=== PATIENT | male | born 1935 | race Caucasian/White ===

== ENCOUNTER 2019-07-15 13:14 | Inpatient (IN) | payer MEDICARE, OTHER ==
--- NOTE | 2019-07-15 15:27 | ER Document Report ---
ED General - General Chief Complaint: Post Surgical Pain Stated Complaint: POST OP ISSUE Time Seen by Provider: 07/15/19 14:36 Primary Care Provider: ELOISA MARTINES MD [Primary Care Provider] - Follow up as needed TRAVEL OUTSIDE OF THE [place] IN LAST 30 DAYS: No - HPI Notes: Mr. Gomez is an 84-year-old male who underwent lumbar fusion surgery performed by Dr. Keane at [facility] last week but now presents complaining with inability to ambulate and his who accompanies him is requesting that we "get him into a rehab center". states that the patient was discharged from hospital without any home health services initially. She says that she is unable to get him out of bed and reports that he is fallen to the floor at least once with no significant injury no loss of consciousness. Home health came out to evaluate the patient earlier today and I did not feel that she was able to manage his situation at home I recommended that they bring him by EMS to the hospital for evaluation for admission with subsequent placement in a rehabilitation center. 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 HENT: Negative for sore throat. Eyes: Negative for visual changes. Cardiovascular: Negative for chest pain. Respiratory: Negative for shortness of breath. Gastrointestinal: Negative for abdominal pain, vomiting or diarrhea. Genitourinary: Negative for dysuria. Musculoskeletal: As per HPI. Skin: Negative for rash. Neurological: Negative for focal weakness or numbness. 10 point ROS negative except as marked above and in HPI. Physical Exam - Vital signs Vitals: Temp Pulse Resp BP Pulse Ox 97.4 F 69 18 154/81 H 100 07/15/19 13:36 07/15/19 13:36 07/15/19 13:36 07/15/19 13:36 07/15/19 13:36 Notes: GENERAL: Well-developed well-nourished appearing in no acute distress. SKIN: Good turgor no rashes. HEAD: Normocephalic atraumatic. EYES: PERRLA. Conjunctivae and sclerae clear. EARS: CANALS AND TMS CLEAR. NOSE: CLEAR. MOUTH: Moist mucosa. Good dentition. No stridor or edema. No drooling. 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 NECK: Supple. No masses or thyromegaly. No adenopathy. Carotids 2+ without bruits. No JVD. BACK: Symmetrical with healing lumbar scar present midline. Wound is clean and there is no drainage or warmth. He is mildly tenderness area. CHEST: Respirations unlabored. Breath sounds clear and symmetrical. Pacemaker left anterior chest wall. HEART: Regular rhythm. No murmur gallop or rub. ABDOMEN: Soft nontender without masses, organomegaly or rebound. Bowel sounds normally active. No bruits. GENITALIA: Deferred. EXTREMITIES: No edema. No calf tenderness. Cap refill less than 1.5 seconds. Dorsalis pedis and posterior tibial pulses 3+ and symmetrical. NEUROLOGICAL: GCS 15. Alert and oriented x3. Patient is unable to get up in bed and unable to stand. Fluent speech. Cranial nerves II through XII intact. Sensorimotor and cerebellar normal. Normal tone. Course - Re-evaluation Re-evalutation: 07/15/19 15:34 I spoke with discharge planning team and they are going to investigate the situation in greater depth and determine what alternatives are available at this time for disposition. 07/15/19 17:53 Serum creatinine is elevated and we do not have a baseline for comparison so we may be dealing with an acute kidney injury. Social workers been involved and says that consults for home health, OT PT can all be obtained as of 8:00 in the morning. Findings were discussed with the on-call hospitalist Dr. Linares and he has indicated that we will do an observation status admission with Dr. Romero. - Vital Signs Vital signs: Temp Pulse Resp BP Pulse Ox 97.4 F 69 12 123/105 H 100 07/15/19 13:36 07/15/19 13:36 07/15/19 16:29 07/15/19 16:29 07/15/19 16:29 - Laboratory Result Diagrams: 07/15/19 16:29 07/15/19 16:29 Laboratory results interpreted by me: 07/15/19 07/15/19 07/15/19 16:06 16:29 16:29 RBC 3.22 L Hgb 11.2 L Hct 33.0 L MCV 102 H MCH 34.9 H RDW 14.3 H Plt Count 120 L BUN 38 H Creatinine 2.47 H Est GFR ( Amer) 30 L Est GFR (MDRD) Non-Af 25 L Calcium 11.6 H Total Protein 6.1 L Albumin 3.3 L Urine Ketones TRACE H Discharge - Discharge Clinical Impression: Acute kidney injury, Degenerative disc disease, lumbar Condition: Fair Disposition: ADMITTED OBSERVATION Admitting Provider: Heather (Hospitalist) Referrals: ELOISA MARTINES MD [Primary Care Provider] - Follow up as needed
[2019-07-15 16:28] LABS: APPEARANCE,URINE CLEAR; BILIRUBIN,URINE NEGATIVE (NEGATIVE); COLOR,URINE YELLOW; GLUCOSE, URINE NEGATIVE (NEGATIVE); KETONES,URINE TRACE mg/dL (NEGATIVE); LEUKOCYTE ESTERASE,URINE NEGATIVE (NEGATIVE); NITRITE,URINE NEGATIVE (NEGATIVE); PROTEIN,URINE NEGATIVE (NEGATIVE); URINE SPECIFIC GRAVITY 1.012; UROBILINOGEN,URINE NEGATIVE mg/dL (<2.0)
[2019-07-15 16:36] LABS: ABSOLUTE BASOPHILS # (AUTO) 0.1 10^3/uL (0.0-0.2); ABSOLUTE EOSINOPHILS # (AUTO) 0.1 10^3/uL (0.0-0.6); ABSOLUTE LYMPHOCYTES (AUTO) 1.5 10^3/uL (0.5-4.7); ABSOLUTE MONOCYTES (AUTO) 0.6 10^3/uL (0.1-1.4); ABSOLUTE NEUT (AUTO) 6.1 10^3/uL (1.7-8.2); EOSINOPHILS % (AUTO) 0.7 % (0-6); HEMOGLOBIN 11.2 g/dL (13.5-17.0); LYMPHOCYTES % (AUTO) 17.8 % (13-45); MEAN CORPUSCULAR HEMOGLOBIN 34.9 pg (27.0-33.4); MEAN CORPUSCULAR HGB CONC 34.1 g/dL (32.0-36.0); MEAN CORPUSCULAR VOLUME 102 fl (80-97); MONOCYTES % (AUTO) 7.1 % (3-13); PLATELET COUNT 120 10^3/uL (150-450); RED BLOOD COUNT 3.22 10^6/uL (4.35-5.55); RED CELL DISTRIBUTION WIDTH 14.3 % (11.5-14.0); SEGMENTED NEUTROPHILS % (AUTO) 73.4 % (42-78); TOTAL CELLS COUNTED % (AUTO) 100 %; WHITE BLOOD COUNT 8.3 10^3/uL (4.0-10.5)
[2019-07-15 16:55] LABS: ALBUMIN 3.3 g/dL (3.5-5.0); ALKALINE PHOSPHATASE 74 U/L (38-126); ANION GAP 12 (5-19); ASPARTATE AMINO TRANSFERASE 34 U/L (17-59); BILIRUBIN,DIRECT 0.4 mg/dL (0.0-0.4); BILIRUBIN,TOTAL 1.1 mg/dL (0.2-1.3); BLOOD UREA NITROGEN 38 mg/dL (7-20); CALCIUM 11.6 mg/dL (8.4-10.2); CARBON DIOXIDE 25 mmol/L (22-30); CHLORIDE 101 mmol/L (98-107); GLUCOSE 77 mg/dL (75-110); POTASSIUM 4.2 mmol/L (3.6-5.0); TOTAL PROTEIN 6.1 g/dL (6.3-8.2)
[2019-07-15] MEDS ORDERED: OXYCODONE-ACETAMINOPHEN 5-325 MG TABLET PO ONE (17:29)
[2019-07-15] MEDS ORDERED: MAGNESIUM HYDROXIDE SUSP 30 ML UDCUP PO PRN (18:24)
[2019-07-15] MEDS ORDERED: MAG HYDROX/AL HYDROX/SIMETH SUSP 30 ML UDCUP PO PRN (18:24)
[2019-07-15] MEDS ORDERED: NORMAL SALINE 1000 ML 1,000 ML IV ONE (18:32)
[2019-07-15] MEDS ORDERED: NORMAL SALINE 1000 ML 500 ML IV ONE (18:33)
[2019-07-15] MEDS ORDERED: NITROGLYCERIN 0.4 MG/TAB 25 TAB/BOTTLE SL PRN (18:38)
--- NOTE | 2019-07-15 18:57 | PDOC H&P ---
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 Patient patient has a chronic back pain from lumbar spinal disease and had recent surgery done on Tuesday last week. Surgery was performed that [facility] by Dr. Krishnan. He was discharged the subsequent day with Percocet. Patient only took 1 dose of the Percocet and used Tylenol to control the rest of the pain. He he then began to have significant mobility dysfunction mainly because of the pain. Denies any incontinence, saddle anesthesia or new weakness in the legs. Patient was seen by home nurse today who recommended rehabilitation and patient's subsequently called EMS patient to be brought to the ER. Note patient does not know if he has any significant kidney disease but admits to not having drunk enough fluids over the past few days. Past Medical History Cardiac Medical History: Reports: Myocardial Infarction - didn't know it, Hypertension Pulmonary Medical History: Denies: Asthma, Chronic Obstructive Pulmonary Disease (COPD), Sleep Apnea EENT Medical History: Reports: Throat - Throat cancer [unspecified] Neurological Medical History: Denies: Seizures Renal/ Medical History: Reports: Other - Prostate cancer status post radiation Malignancy Medical History: Reports: Other - Larynx GI Medical History: Denies: Hepatitis, Hiatal Hernia Hematology: Denies: Anemia, Sickle Cell Disease Past Surgical History Past Surgical History: Reports: Coronary Stent, Pacemaker - medtronic, Other - Resection of throat cancer Social History Lives with: Family Smoking Status: Former Smoker Family History Family History: Reviewed & Not Pertinent Parental Family History Reviewed: Yes Children Family History Reviewed: NA Sibling(s) Family History Reviewed.: NA Medication/Allergy Home Medications: Acetaminophen/Diphenhydramine [[facility] Pain Relief Pm Caplet] 1 tab-cap PO HSP PRN 12/20/14 Allopurinol [Zyloprim 300 mg Tablet] 300 mg PO DAILY 12/20/14 Amitriptyline HCl [Elavil 25 mg Tablet] 25 mg PO QHS 12/20/14 Apixaban [Eliquis 2.5 mg Tablet] 2.5 mg PO BID 12/20/14 Aspirin [Ecotrin] 81 mg PO DAILY PRN 12/20/14 Colchicine [Colcrys] 1.2 mg PO DAILY 12/20/14 Methotrexate Sodium [Methotrexate] 5 mg PO .Q1 WEEK 12/20/14 Metoprolol Succinate 50 mg PO DAILY 12/20/14 Nifedipine [Nifedipine ER] 60 mg PO DAILY 12/20/14 Omeprazole 40 mg PO BID 12/20/14 Oxycodone HCl/Acetaminophen [Oxycodon-Acetaminophen 7.5-325] 1 each PO BID 12/20/14 Simvastatin 40 mg PO DAILY 12/20/14 Vits A,C,E/Lutein/Zeax/Zn/Hector [[facility] Formula Softgel] 1 each PO DAILY 12/20/14 Besifloxacin HCl [Besivance Drops] 1 drop OP TID 01/21/15 Difluprednate [Durezol] 5 ml OP ASDIR PRN 01/21/15 Nepafenac [Ilevro] 1.7 ml OP ASDIR PRN 01/21/15 Allergies/Adverse Reactions: No Known Allergies Allergy (Unverified 12/20/14 10:45) Review of Systems Constitutional: ABSENT: anorexia, chills, fever(s) Ears: ABSENT: hearing changes Cardiovascular: ABSENT: chest pain, dyspnea on exertion, orthropnea Respiratory: ABSENT: dyspnea Gastrointestinal: ABSENT: abdominal pain, diarrhea Genitourinary: PRESENT: other - Denies incontinence. ABSENT: hematuria Musculoskeletal: PRESENT: muscle weakness Neurological: ABSENT: focal weakness, syncope Psychiatric: ABSENT: hallucinations Endocrine: ABSENT: heat intolerance Allergic/Immunologic: ABSENT: seasonal rhinorrhea Physical Exam Vital Signs: Temp Pulse Resp BP Pulse Ox 97.4 F 69 12 123/105 H 100 07/15/19 13:36 07/15/19 13:36 07/15/19 16:29 07/15/19 16:29 07/15/19 16:29 Intake & Output 07/14/19 07/15/19 07/16/19 06:59 06:59 06:59 Weight 88 kg General appearance: PRESENT: no acute distress, cooperative Head exam: PRESENT: normocephalic Eye exam: PRESENT: EOMI Mouth exam: PRESENT: neck supple Neck exam: ABSENT: JVD Respiratory exam: PRESENT: clear to auscultation katharina Cardiovascular exam: PRESENT: RRR, +S1, +S2. ABSENT: bradycardia GI/Abdominal exam: PRESENT: normal bowel sounds, soft. ABSENT: rigid, tenderness Extremities exam: ABSENT: calf tenderness, joint swelling Musculoskeletal exam: PRESENT: other - Range of motion of legs admitted because of back pain. Incision scar looks fresh ports is healing well without any purulence drainage or fluctuance. ABSENT: ambulatory Neurological exam: PRESENT: alert, awake, oriented to person, oriented to place, oriented to time, oriented to situation Psychiatric exam: ABSENT: anxious Results Laboratory Results: 07/15/19 16:29 07/15/19 16:29 07/15/19 07/15/19 07/15/19 16:06 16:29 16:29 WBC 8.3 RBC 3.22 L Hgb 11.2 L Hct 33.0 L MCV 102 H MCH 34.9 H MCHC 34.1 RDW 14.3 H Plt Count 120 L Seg Neutrophils % 73.4 Sodium 138.0 Potassium 4.2 Chloride 101 Carbon Dioxide 25 Anion Gap 12 BUN 38 H Creatinine 2.47 H Est GFR ( Amer) 30 L Glucose 77 Calcium 11.6 H Total Bilirubin 1.1 AST 34 Alkaline Phosphatase 74 Total Protein 6.1 L Albumin 3.3 L Urine Color YELLOW Urine Appearance CLEAR Urine pH 8.0 Ur Specific [place] 1.012 Urine Protein NEGATIVE Urine Glucose (UA) NEGATIVE Urine Ketones TRACE H Urine Blood NEGATIVE Urine Nitrite NEGATIVE Ur Leukocyte Esterase NEGATIVE Urine WBC (Auto) 0 Urine RBC (Auto) 0 Assessment and Plan - Diagnosis (1) Acute on chronic kidney failure Is this a current diagnosis for this admission?: Yes Plan: Unknown baseline as patient has no records here since 2013 I will give IV fluid hydration and recheck BMP for response of creatinine We will attempt to get records tomorrow regarding patient's baseline creatinine level (2) Ambulatory dysfunction Is this a current diagnosis for this admission?: Yes Plan: secondary to lumbar spinal disorder and recent surgery. Ambulation is limited by pain from this. Physical therapy Social work for placement. Anticipate patients will require rehabilitation inpatient. (3) Lumbar back pain with radiculopathy affecting lower extremity Is this a current diagnosis for this admission?: Yes Plan: See plan below (4) Status post lumbar surgery Is this a current diagnosis for this admission?: Yes Plan: Percocet as needed Bowel regimen - Time Time Spent with patient: 35 or more minutes Medications reviewed and adjusted accordingly: Yes
[2019-07-15] MEDS: SIMVASTATIN 40 MG TABLET PO SCH (22:35)
[2019-07-15] MEDS: HYDROCHLOROTHIAZIDE 12.5 MG TABLET PO SCH (22:36)
[2019-07-15] MEDS: AMIODARONE HCL 200 MG TABLET PO SCH (22:36)
--- NOTE | 2019-07-15 23:23 | EKG REPORT ---
SEVERITY:- ABNORMAL ECG - VENTRICULAR-PACED COMPLEXES NONSPECIFIC INTRAVENTRICULAR CONDUCTION DELAY : Confirmed by: Shani Hardin 15-Jul-2019 23:23:12
[2019-07-16] MEDS: NORMAL SALINE 1000 ML 1,000 ML IV PRN ×2 (00:28→09:41)
[2019-07-16 05:05] LABS: ANION GAP 8 (5-19); BLOOD UREA NITROGEN 33 mg/dL (7-20); CALCIUM 10.7 mg/dL (8.4-10.2); CARBON DIOXIDE 26 mmol/L (22-30); CHLORIDE 107 mmol/L (98-107); GLUCOSE 85 mg/dL (75-110)
[2019-07-16] MEDS: HEPARIN SOD (PORCINE) 5,000 UNIT/ML 1 ML VIAL SUBCUT SCH ×3 (05:08→21:49)
[2019-07-16] MEDS: PANTOPRAZOLE SODIUM 40 MG TABLET.DR PO SCH (05:18)
[2019-07-16 05:32] LABS: POTASSIUM 3.3 mmol/L (3.6-5.0)
[2019-07-16] MEDS: AMIODARONE HCL 200 MG TABLET PO SCH ×2 (09:41→21:55)
[2019-07-16] MEDS: METOPROLOL SUCCINATE 50 MG TAB.SR.24H PO SCH (09:41)
[2019-07-16] MEDS: SENNOSIDES/DOCUSATE 8.6-50 MG 1 EACH TABLET PO SCH ×2 (09:41→18:15)
[2019-07-16] MEDS: OXYCODONE-ACETAMINOPHEN 5-325 MG TABLET PO PRN (09:47)
[2019-07-16] MEDS ORDERED: DOCUSATE SODIUM 100 MG CAPSULE PO SCH (10:00)
--- NOTE | 2019-07-16 10:57 | PDOC PROGRESS REPORT ---
Subjective Progress Note for:: 07/16/19 Subjective:: Patient still complains of back pain medically difficult for him to ambulate. Pain is a little better resuming his pain medication. Reason For Visit: [place] Physical Exam Vital Signs: Temp Pulse Resp BP Pulse Ox 97.4 F 69 15 146/67 H 97 07/16/19 07:46 07/16/19 07:46 07/16/19 07:46 07/16/19 07:46 07/16/19 07:46 Intake & Output 07/15/19 07/16/19 07/17/19 06:59 06:59 06:59 Intake Total 1550 1000 Output Total 500 Balance 1050 1000 Weight 77.3 kg General appearance: PRESENT: no acute distress Eye exam: PRESENT: EOMI Neck exam: ABSENT: JVD Respiratory exam: PRESENT: clear to auscultation katharina, symmetrical, unlabored. ABSENT: tachypnea, wheezes Cardiovascular exam: PRESENT: RRR, +S1, +S2. ABSENT: tachycardia GI/Abdominal exam: PRESENT: normal bowel sounds, soft. ABSENT: rebound, rigid, tenderness Extremities exam: ABSENT: calf tenderness, pedal edema Musculoskeletal exam: PRESENT: other - Incision site and lower back midline looks fresh port starting to heal without any fluctuance, induration or drainage. cone tender with some erythema.. ABSENT: ambulatory Neurological exam: PRESENT: alert, awake, oriented to person, oriented to place, oriented to time, oriented to situation Results Laboratory Results: 07/15/19 16:29 07/16/19 03:40 07/15/19 07/15/19 07/15/19 16:06 16:29 16:29 WBC 8.3 RBC 3.22 L Hgb 11.2 L Hct 33.0 L MCV 102 H MCH 34.9 H MCHC 34.1 RDW 14.3 H Plt Count 120 L Seg Neutrophils % 73.4 Sodium 138.0 Potassium 4.2 Chloride 101 Carbon Dioxide 25 Anion Gap 12 BUN 38 H Creatinine 2.47 H Est GFR ( Amer) 30 L Glucose 77 Calcium 11.6 H Total Bilirubin 1.1 AST 34 Alkaline Phosphatase 74 Total Protein 6.1 L Albumin 3.3 L Urine Color YELLOW Urine Appearance CLEAR Urine pH 8.0 Ur Specific [place] 1.012 Urine Protein NEGATIVE Urine Glucose (UA) NEGATIVE Urine Ketones TRACE H Urine Blood NEGATIVE Urine Nitrite NEGATIVE Ur Leukocyte Esterase NEGATIVE Urine WBC (Auto) 0 Urine RBC (Auto) 0 07/16/19 03:40 WBC RBC Hgb Hct MCV MCH MCHC RDW Plt Count Seg Neutrophils % Sodium 140.9 Potassium 3.3 L Chloride 107 Carbon Dioxide 26 Anion Gap 8 BUN 33 H Creatinine 2.29 H Est GFR ( Amer) 33 L Glucose 85 Calcium 10.7 H Total Bilirubin AST Alkaline Phosphatase Total Protein Albumin Urine Color Urine Appearance Urine pH Ur Specific [place] Urine Protein Urine Glucose (UA) Urine Ketones Urine Blood Urine Nitrite Ur Leukocyte Esterase Urine WBC (Auto) Urine RBC (Auto) Assessment and Plan - Diagnosis (1) Acute on chronic kidney failure Is this a current diagnosis for this admission?: Yes (2) Ambulatory dysfunction Is this a current diagnosis for this admission?: Yes (3) Lumbar back pain with radiculopathy affecting lower extremity Is this a current diagnosis for this admission?: Yes (4) Status post lumbar surgery Is this a current diagnosis for this admission?: Yes - Plan Summary Summary: Of note, patient presented to the ER yesterday via ambulance because of compl aints of ambulatory dysfunction which had worsened since his lumbar surgery [unspecified] that was done last week Tuesday. Of note he was discharged the following day from [facility] and at that time, needed significant help getting into the car. At home has been difficult for to care for patient, also notes that he only took his prescribed Percocet once and since then she had been giving him Tylenol. Patient was then brought in to the ER after discussing with his PCP who said he would need rehab. In the ER, blood work revealed creatinine of 2.47. Last creatinine was several years ago showing 1.4. Admitted for potential [place] given we will not able to verify baseline creat inine level from PCPs office yesterday [Tuesday]. Given IV fluids with small improvement in creatinine. Today I was able to call patient's PCP office and found out that the patient's BMPs done this year including the last one, which was last month, have reviewed creatinine levels all around 2.7. This indicates that patient is even better than baseline currently has underlying stage 4 CKD. As such, only thing pending his physical therapy and recommendations for placement. - Time Time Spent with patient: 15-24 minutes
[2019-07-16] MEDS ORDERED: POTASSIUM CHLORIDE 10 MEQ CAPSULE.ER PO ONE (11:30)
[2019-07-16] MEDS: GABAPENTIN 100 MG CAPSULE PO SCH ×2 (14:31→21:55)
[2019-07-16] MEDS: HYDROCHLOROTHIAZIDE 12.5 MG TABLET PO SCH (21:55)
[2019-07-16] MEDS: SIMVASTATIN 40 MG TABLET PO SCH (21:55)
[2019-07-17] MEDS: HEPARIN SOD (PORCINE) 5,000 UNIT/ML 1 ML VIAL SUBCUT SCH ×3 (05:01→21:07)
[2019-07-17] MEDS: GABAPENTIN 100 MG CAPSULE PO SCH ×3 (05:02→21:07)
[2019-07-17] MEDS: PANTOPRAZOLE SODIUM 40 MG TABLET.DR PO SCH (05:02)
[2019-07-17] MEDS: SENNOSIDES/DOCUSATE 8.6-50 MG 1 EACH TABLET PO SCH ×2 (09:20→18:28)
[2019-07-17] MEDS: OXYCODONE-ACETAMINOPHEN 5-325 MG TABLET PO PRN (09:20)
[2019-07-17] MEDS: METOPROLOL SUCCINATE 50 MG TAB.SR.24H PO SCH (09:21)
[2019-07-17] MEDS: AMIODARONE HCL 200 MG TABLET PO SCH ×2 (09:21→21:07)
--- NOTE | 2019-07-17 10:23 | PDOC PROGRESS REPORT ---
Subjective Progress Note for:: 07/17/19 Subjective:: 07/17/2019-numbness in his feet inability to ambulate Reason For Visit: [place] Physical Exam Vital Signs: Temp Pulse Resp BP Pulse Ox 98.5 F 70 19 114/56 L 97 07/17/19 08:06 07/17/19 08:06 07/17/19 08:06 07/17/19 08:06 07/17/19 08:06 Intake & Output 07/16/19 07/17/19 07/18/19 06:59 06:59 06:59 Intake Total 1550 1564 Output Total 500 625 Balance 1050 939 Weight 77.3 kg 79.1 kg General appearance: PRESENT: no acute distress, well-developed, well-nourished Neck exam: ABSENT: carotid bruit, JVD, lymphadenopathy, thyromegaly Respiratory exam: PRESENT: clear to auscultation katharina, symmetrical, unlabored. ABSENT: rales, rhonchi, wheezes Cardiovascular exam: PRESENT: RRR. ABSENT: diastolic murmur, rubs, systolic murmur Pulses: PRESENT: +1 pedal pulses bilateral Vascular exam: PRESENT: pallor GI/Abdominal exam: PRESENT: normal bowel sounds, soft. ABSENT: distended, guarding, mass, organolmegaly, rebound, tenderness Extremities exam: PRESENT: +1 edema Neurological exam: PRESENT: alert, awake, oriented to person, oriented to place, oriented to time, oriented to situation, CN II-XII grossly intact. ABSENT: motor sensory deficit Psychiatric exam: PRESENT: appropriate affect, normal mood. ABSENT: homicidal ideation, suicidal ideation Skin exam: PRESENT: dry, intact, warm. ABSENT: cyanosis, rash Results Laboratory Results: 07/15/19 16:29 07/16/19 03:40 Assessment and Plan - Diagnosis (1) Acute on chronic kidney failure Is this a current diagnosis for this admission?: Yes Plan: Unknown baseline as patient has no records here since 2013 I will give IV fluid hydration and recheck BMP for response of creatinine We will attempt to get records tomorrow regarding patient's baseline creatinine level 07/17/2019-seem to be chronic in nature as patient creatinine slightly improved still 2.29. We will continue to follow daily renal panels. (2) Ambulatory dysfunction Is this a current diagnosis for this admission?: Yes Plan: secondary to lumbar spinal disorder and recent surgery. Ambulation is limited by pain from this. Physical therapy Social work for placement. Anticipate patients will require rehabilitation inpatient. 07/17/2019-still unable to ambulate. Continue OT PT. Await further recommendations (3) Lumbar back pain with radiculopathy affecting lower extremity Is this a current diagnosis for this admission?: Yes Plan: See plan below 07/17/2019-see below (4) Status post lumbar surgery Is this a current diagnosis for this admission?: Yes Plan: Percocet as needed Bowel regimen 07/17/2019-continue Percocet as needed. Continue bowel regimen - Plan Summary Summary: Of note, patient presented to the ER yesterday via ambulance because of complaints of ambulatory dysfunction which had worsened since his lumbar surgery [unspecified] that was done last week Tuesday. Of note he was discharged the following day from [facility] and at that time, needed significant help getting into the car. At home has been difficult for to care for patient, also notes that he only took his prescribed Percocet once and since then she had been giving him Tylenol. Patient was then brought in to the ER after discussing with his PCP who said he would need rehab. In the ER, blood work revealed creatinine of 2.47. Last creatinine was several years ago showing 1.4. Admitted for potential [place] given we will not able to verify baseline creatinine level from PCPs office yesterday [Tuesday]. Given IV fluids with small improvement in creatinine. Today I was able to call patient's PCP office and found out that the patient's BMPs done this year including the last one, which was last month, have reviewed creatinine levels all around 2.7. This indicates that patient is even better than baseline currently has underlying stage 4 CKD. As such, only thing pending his physical therapy and recommendations for placement. - Time Time Spent with patient: 15-24 minutes
[2019-07-17] MEDS ORDERED: POTASSIUM CHLORIDE 10 MEQ CAPSULE.ER PO ONE (11:00)
--- NOTE | 2019-07-17 13:56 | RADIOLOGY REPORT (SQ) ---
EXAM DESCRIPTION: CT CHEST WITHOUT COMPLETED DATE/TIME: 07/17/2019 12:50 pm REASON FOR STUDY: elevated calcium bone pain R05 COUGH COMPARISON: CTA of the chest from 02/21/2011 TECHNIQUE: CT scan performed of the chest without intravenous contrast. Images reviewed with lung, soft tissue and bone windows. Reconstructed coronal and sagittal MPR images reviewed. All images st ored on PACS. All CT scanners at this facility use dose modulation, iterative reconstruction, and/or weight based d osing when appropriate to reduce radiation dose to as low as reasonably achievable (ALARA). [facility]: Dose Right [facility]: CareDose [facility]: Dose Right [facility]: Teradose 4D [facility]: Smart Technologies RADIATION DOSE: CT Rad equipment meets quality standard of care and radiation dose reduction techniq ues were employed. CTDIvol: 11.3 mGy. DLP: 440 mGy-cm. mGy. LIMITATIONS: No technical limitations. FINDINGS: LUNGS AND PLEURA: The trachea and main bronchi are patent. There is bronchial wall thicke anuj and severe centrilobular and paraseptal emphysema. The areas of subpleural reticulation and con solidation in the dependent portion of the lower lobes are nonspecific and could represent atelectasi s or part of a 2nd chronic interstitial process such is fibrotic NSIP. There is a trace amount of fr ee fluid in the right pleural space. There is no pleural thickening or calcification. HILAR AND MEDIASTINAL STRUCTURES: No enlarged mediastinal or hilar adenopathy. HEART AND VASCULAR STRUCTURES: Cardiomegaly and severe atherosclerotic calcification of the coronary arteries. There is no pericardial effusion UPPER ABDOMEN: The nodular contour of the liver is suggestive of cirrhosis. The subcentimeter hypode nse lesions in the left hepatic lobe (image 47 of series 2) and in the posterior inferior aspect of t he right hepatic lobe (image 56 of series 2 are too small to characterize ; the left hepatic lobe les ions are stable from 02/21/2011. The punctate splenic and hepatic calcifications are consistent with granulomas. There is no acute gross abnormality of the pancreas. The high attenuation within the ga llbladder lumen could represent sludge or cholelithiasis. There is no discrete adrenal mass. The ki dneys are atrophic. There is an ahaustral appearance of the transverse colon without associated maicol colonic stranding. THYROID AND OTHER SOFT TISSUES: The thyroid gland is heterogeneous. There is a discrete subcentimete r hypodense nodule in the right lobe of the thyroid gland (image 4 of series 2). There is no enlarge d supraclavicular or axillary adenopathy. BONES: Osteopenia. There is no fracture or osseous lesion. HARDWARE: Left subclavian approach triple lead ICD. OTHER: No other findings. IMPRESSION: 1. Severe paraseptal and centrilobular emphysema. As stated above, the areas of subpleu ral reticulation and consolidation in the dependent portion of the lower lobes are nonspecific and co uld represent atelectasis or part of a 2nd chronic interstitial process such is fibrotic NSIP. 2. Nodular contour of the liver suggestive of cirrhosis. 3. Ahaustral appearance of the transverse colon without associated pericolonic stranding. Correlate with clinical findings to exclude a colitis. 4. Other findings as detailed above. TECHNICAL DOCUMENTATION: JOB ID: [id number] Quality ID # [id number]: Final reports with documentation of one or more dose reduction techniques (e.g., Au tomated exposure control, adjustment of the mA and/or kV according to patient size, use of iterative reconstruction technique) 2010 [employer]- All Rights Reserved Reading location - IP/workstation name: [email or web address]
--- NOTE | 2019-07-17 14:14 | PDOC CONSULTATION ---
Consultation-Blank Consultation: Physical Medicine & Rehabilitation Progress Note Consultation request received and appreciated. Chart reviewed and case discussed with acute-care therapists as well as equipment planner. 84-year-old male admitted to [facility] on 07/15/2019 following recent discharge home from [facility] status post lumbar spine surgery on 07/11/[address] Krishnan. He presented with significant mobility and self-care dysfunction as well as uncontrolled pain. Further hospital course also included diagnosis of chronic kidney disease stage IV with baseline creatinine of 2.7. He was evaluated by acute care physical therapy and occupational therapy, and he currently requires moderate to maximum assistance for bed mobility and transfers, supervision for sitting balance, and minimum assistance for standing balance. The patient lives with his in a 1 level home with 3 steps to enter, and his is unable to care for the patient in his current functional condition. Based on the patient's diagnosis, medical co-morbidities, and current functional status, he is a good candidate for acute inpatient rehabilitation as he would benefit from 3 hours per day of intensive therapies in at least 2 disciplines under the close medical supervision of a physician. The patient is expected to make significant gains in a relatively short period of time to the point that he can safely be discharged home with supervision and assistance from family. Barring any unforeseen events or conversations, there is a plan to admit the patient to acute inpatient rehabilitation at [facility] on 07/18/2019. telephone supervisor time is scheduled for 10 AM, and nursing should call report to [facility] acute inpatient rehabilitation nurses station at [phone] prior to the patients discharge.
[2019-07-17] MEDS: HYDROCHLOROTHIAZIDE 12.5 MG TABLET PO SCH (21:07)
[2019-07-17] MEDS: SIMVASTATIN 40 MG TABLET PO SCH (21:07)
[2019-07-18] MEDS: GABAPENTIN 100 MG CAPSULE PO SCH (05:15)
[2019-07-18] MEDS: PANTOPRAZOLE SODIUM 40 MG TABLET.DR PO SCH (05:15)
[2019-07-18] MEDS: HEPARIN SOD (PORCINE) 5,000 UNIT/ML 1 ML VIAL SUBCUT SCH (07:39)
--- NOTE | 2019-07-18 07:58 | PDOC DISCHARGE SUMMARY ---
Impression - Admit/DC Date/PCP Admission Date/Primary Care Provider: 07/15/19 18:34 ELOISA MARTINES MD Discharge Date: 07/18/19 - Discharge Diagnosis (1) Acute on chronic kidney failure Is this a current diagnosis for this admission?: Yes (2) Ambulatory dysfunction Is this a current diagnosis for this admission?: Yes (3) Lumbar back pain with radiculopathy affecting lower extremity Is this a current diagnosis for this admission?: Yes (4) Status post lumbar surgery Is this a current diagnosis for this admission?: Yes - Assessment Summary: Of note, patient presented to the ER yesterday via ambulance because of complaints of ambulatory dysfunction which had worsened since his lumbar surgery [unspecified] that was done last week Tuesday. Of note [facility] and at that time, needed significant help getting into the car. At home has been difficult for to care for patient, also notes that he only took his prescribed Percocet once and since then she had been giving him Tylenol. Patient was then brought in to the ER after discussing with his PCP who said he would need rehab. In the ER, blood work revealed creatinine of 2.47. Last creatinine was several years ago showing 1.4. Admitted for potential [place] given we will not able to verify baseline creatinine level from PCPs office yesterday [Tuesday]. Given IV fluids with small improvement in creatinine. Today I was able to call patient's PCP office and found out that the patient's BMPs done this year including the last one, which was last month, have reviewed creatinine levels all around 2.7. This indicates that patient is even better than baseline currently has underlying stage 4 CKD. As such, only thing pending his physical therapy and recommendations for placement. - Additional Information Resuscitation Status: Full Code Discharge Activity: Activity As Tolerated Referrals: ELOISA MARTINES MD [Primary Care Provider] - Follow up as needed Prescriptions: Oxycodone HCl/Acetaminophen [Percocet 5-325 mg Tablet] 2 tab PO Q6HP PRN #10 tablet PRN Reason: Home Medications: Amiodarone HCl [Amiodarone HCl 400 mg Tablet] 200 mg PO DAILY 07/16/19 Gabapentin [Neurontin 100 mg Capsule] 100 mg PO Q8 07/16/19 Hydrochlorothiazide [Hydrodiuril 25 mg Tablet] 25 mg PO DAILY 07/16/19 Metoprolol Succinate [Toprol Xl 50 mg Tab.sr] 50 mg PO DAILY 07/16/19 Omeprazole 40 mg PO BIDACBS 07/16/19 Oxycodone HCl/Acetaminophen [Percocet 5-325 mg Tablet] 1 tab PO Q6HP PRN 07/16/19 Amiodarone HCl [Cordarone 200 mg Tablet] 400 mg PO Q12 tablet 07/18/19 Hydrochlorothiazide [Hydrodiuril 12.5 mg Tablet] 12.5 mg PO QHS tablet 07/18/19 Metoprolol Succinate [Toprol Xl 50 mg Tab.sr] 50 mg PO DAILY tab.sr.24h 07/18/19 Nitroglycerin [Nitrostat 0.4 mg (1/150 Gr) Tabs 25/Bottle] 1 tab SL Q5MP PRN bottle 07/18/19 Oxycodone HCl/Acetaminophen [Percocet 5-325 mg Tablet] 2 tab PO Q6HP PRN #10 tablet 07/18/19 Simvastatin [Zocor 40 mg Tablet] 40 mg PO QHS tablet 07/18/19 History of Present Illiness History of Present Illness: QAMAR BOWEN is a 84 year old male who was brought to the ER with difficulty ambulating after a spinal surgery of unknown type. Hospital Course Hospital Course: Patient brought to the ER with history of lumbar spinal disease with status post lumbar spinal surgery unspecified, myocardial infarction, PCI with stenting and ICD, prostate cancer status post radiation, throat cancer status post resection with difficulty ambulating. Patient does have a history of chronic back pain from lumbar spinal disease and had recent surgery done last week. Surgery was performed at [facility] by Dr. Krishnan and he was discharged the next day with Percocet. Patient states he took 1 Percocet and switch to Tylenol for pain control. He began having difficulty with mobility after that point. He denied any incontinence or other complaints. Patient was placed on medical surgical floor and was seen by physical therapy. At this time patient will be discharged who [place] for short-term rehab. Patient family is in agreement with plan of care. Physical Exam Vital Signs: Temp Pulse Resp BP Pulse Ox 98.1 F 71 17 138/55 H 96 07/18/19 00:00 07/18/19 00:00 07/18/19 00:00 07/18/19 00:00 07/18/19 00:00 Intake & Output 07/17/19 07/18/19 07/19/19 06:59 06:59 06:59 Intake Total 1564 860 Output Total 625 300 Balance 939 560 Weight 79.1 kg General appearance: PRESENT: no acute distress, well-developed, well-nourished Neck exam: ABSENT: carotid bruit, JVD, lymphadenopathy, thyromegaly Respiratory exam: PRESENT: clear to auscultation katharina. ABSENT: rales, rhonchi, wheezes Cardiovascular exam: PRESENT: RRR. ABSENT: diastolic murmur, rubs, systolic murmur Pulses: PRESENT: +1 pedal pulses bilateral Vascular exam: PRESENT: normal capillary refill Extremities exam: PRESENT: full ROM, other - Lower externally weakness Neurological exam: PRESENT: alert, awake, oriented to person, oriented to place, oriented to time, oriented to situation, CN II-XII grossly intact. ABSENT: motor sensory deficit Psychiatric exam: PRESENT: appropriate affect, normal mood. ABSENT: homicidal ideation, suicidal ideation Skin exam: PRESENT: dry, intact, warm. ABSENT: cyanosis, rash Results Laboratory Results: WBC 8.3 10^3/uL (4.0-10.5) 07/15/19 16:29 RBC 3.22 10^6/uL (4.35-5.55) L 07/15/19 16:29 Hgb 11.2 g/dL (13.5-17.0) L 07/15/19 16:29 Hct 33.0 % (37.9-51.0) L 07/15/19 16:29 MCV 102 fl (80-97) H 07/15/19 16:29 MCH 34.9 pg (27.0-33.4) H 07/15/19 16:29 MCHC 34.1 g/dL (32.0-36.0) 07/15/19 16:29 RDW 14.3 % (11.5-14.0) H 07/15/19 16:29 Plt Count 120 10^3/uL (150-450) L 07/15/19 16:29 Lymph % (Auto) 17.8 % (13-45) 07/15/19 16:29 [place] % (Auto) 7.1 % (3-13) 07/15/19 16:29 Eos % (Auto) 0.7 % (0-6) 07/15/19 16:29 Baso % (Auto) 1.0 % (0-2) 07/15/19 16:29 Absolute Neuts (auto) 6.1 10^3/uL (1.7-8.2) 07/15/19 16:29 Absolute Lymphs (auto) 1.5 10^3/uL (0.5-4.7) 07/15/19 16:29 Absolute Monos (auto) 0.6 10^3/uL (0.1-1.4) 07/15/19 16:29 Absolute Eos (auto) 0.1 10^3/uL (0.0-0.6) 07/15/19 16:29 Absolute Basos (auto) 0.1 10^3/uL (0.0-0.2) 07/15/19 16:29 Seg Neutrophils % 73.4 % (42-78) 07/15/19 16:29 Sodium 140.9 mmol/L (137-145) 07/16/19 03:40 Potassium 3.3 mmol/L (3.6-5.0) L 07/16/19 03:40 Chloride 107 mmol/L (98-107) 07/16/19 03:40 Carbon Dioxide 26 mmol/L (22-30) 07/16/19 03:40 Anion Gap 8 (5-19) 07/16/19 03:40 BUN 33 mg/dL (7-20) H 07/16/19 03:40 Creatinine 2.29 mg/dL (0.52-1.25) H 07/16/19 03:40 Est GFR ( Amer) 33 (>60) L 07/16/19 03:40 Est GFR (MDRD) Non-Af 27 (>60) L 07/16/19 03:40 Glucose 85 mg/dL (75-110) 07/16/19 03:40 Calcium 10.7 mg/dL (8.4-10.2) H 07/16/19 03:40 Total Bilirubin 1.1 mg/dL (0.2-1.3) 07/15/19 16:29 Direct Bilirubin 0.4 mg/dL (0.0-0.4) 07/15/19 16:29 Neonat Total Bilirubin Not Reportable 07/15/19 16:29 Neonat Direct Bilirubin Not Reportable 07/15/19 16:29 Neonat Indirect Bili Not Reportable 07/15/19 16:29 AST 34 U/L (17-59) 07/15/19 16:29 ALT 7 U/L (<50) 07/15/19 16:29 Alkaline Phosphatase 74 U/L (38-126) 07/15/19 16:29 Total Protein 6.1 g/dL (6.3-8.2) L 07/15/19 16:29 Albumin 3.3 g/dL (3.5-5.0) L 07/15/19 16:29 Urine Color YELLOW 07/15/19 16:06 Urine Appearance CLEAR 07/15/19 16:06 Urine pH 8.0 (5.0-9.0) 07/15/19 16:06 Ur Specific [place] 1.012 07/15/19 16:06 Urine Protein NEGATIVE mg/dL (NEGATIVE) 07/15/19 16:06 Urine Glucose (UA) NEGATIVE mg/dL (NEGATIVE) 07/15/19 16:06 Urine Ketones TRACE mg/dL (NEGATIVE) H 07/15/19 16:06 Urine Blood NEGATIVE (NEGATIVE) 07/15/19 16:06 Urine Nitrite NEGATIVE (NEGATIVE) 07/15/19 16:06 Urine Bilirubin NEGATIVE (NEGATIVE) 07/15/19 16:06 Urine Urobilinogen NEGATIVE mg/dL (<2.0) 07/15/19 16:06 Ur Leukocyte Esterase NEGATIVE (NEGATIVE) 07/15/19 16:06 Urine WBC (Auto) 0 /HPF 07/15/19 16:06 Urine RBC (Auto) 0 /HPF 07/15/19 16:06 U Hyaline Cast (Auto) 1 /LPF 07/15/19 16:06 Squamous Epi Cells Auto <1 /HPF 07/15/19 16:06 Urine Mucus (Auto) RARE /LPF 07/15/19 16:06 Urine Ascorbic Acid NEGATIVE (NEGATIVE) 07/15/19 16:06 Impressions: Chest CT 07/17/19 00:00 IMPRESSION: 1. Severe paraseptal and centrilobular emphysema. As stated above, the areas of subpleural reticulation and consolidation in the dependent portion of the lower lobes are nonspecific and could represent atelectasis or part of a 2nd chronic interstitial process such is fibrotic NSIP. 2. Nodular contour of the liver suggestive of cirrhosis. 3. Ahaustral appearance of the transverse colon without associated pericolonic stranding. Correlate with clinical findings to exclude a colitis. 4. Other findings as detailed above. Plan Time Spent: Greater than 30 Minutes Stroke Is this a Stroke Patient?: No Acute Heart Failure - Is this a Heart Failure Patient?: No
[2019-07-18 08:51] VITALS: BP 131/83
[2019-07-18] MEDS: SENNOSIDES/DOCUSATE 8.6-50 MG 1 EACH TABLET PO SCH (10:18)
[2019-07-18] MEDS: METOPROLOL SUCCINATE 50 MG TAB.SR.24H PO SCH (10:18)
[2019-07-18] MEDS: AMIODARONE HCL 200 MG TABLET PO SCH (10:18)
[2019-07-18] MEDS: OXYCODONE-ACETAMINOPHEN 5-325 MG TABLET PO PRN (10:20)
== END 2019-07-18 10:49 | disposition short-term general hospital (02) | DRG 684 ==
LOC: ER 13:14 → INTOOBSV 18:34 → EH 18:34 → OBSVTOIN 18:34 → 4N 21:40 → OBSVTOIN 07-17 16:00
PROVIDERS: ADMIT Internal Medicine; ATTEND Internal Medicine
DX: N17.9 Acute kidney failure, unspecified (principal); M54.16 Radiculopathy, lumbar region; I12.9 Hypertensive chronic kidney disease with stage 1 through stage 4 chronic kidney disease, or unspecified chronic kidney disease; N18.4 Chronic kidney disease, stage 4 (severe); R26.89 Other abnormalities of gait and mobility; G89.18 Other acute postprocedural pain; I25.2 Old myocardial infarction; Z85.46 Personal history of malignant neoplasm of prostate; Z85.21 Personal history of malignant neoplasm of larynx; Z90.02 Acquired absence of larynx; Z95.5 Presence of coronary angioplasty implant and graft; Z79.899 Other long term (current) drug therapy; Z87.891 Personal history of nicotine dependence
CPT/HCPCS: 36415; 71250; 80048; 80053; 81001; 85025; 93005; 93010; 96360; 99284; G0378; J3490; J7030

== ENCOUNTER 2019-08-14 16:47 | Emergency (ER) | payer MEDICARE, OTHER ==
--- NOTE | 2019-08-14 17:46 | RADIOLOGY REPORT (SQ) ---
EXAM DESCRIPTION: CHEST SINGLE VIEW COMPLETED DATE/TIME: 08/14/2019 5:22 pm REASON FOR STUDY: cough COMPARISON: AP view of the chest from February 112010. EXAM PARAMETERS: NUMBER OF VIEWS: One view. TECHNIQUE: Single frontal radiographic view of the chest acquired. RADIATION DOSE: NA LIMITATIONS: None. FINDINGS: LUNGS AND PLEURA: Findings of emphysema with prominent delay along the right horizontal fi ssure and a chronic reticular basilar opacities. There is no consolidation, pleural effusion or pneu mothorax. MEDIASTINUM AND HILAR STRUCTURES: No mediastinal or hilar contour abnormality. HEART AND VASCULAR STRUCTURES: Mild cardiomegaly. BONES: No acute findings. HARDWARE: Coronary stents and left subclavian approach triple lead ICD. OTHER: No other finding. IMPRESSION: Chronic interstitial findings without a superimposed acute cardiopulmonary process. TECHNICAL DOCUMENTATION: JOB ID: [id number] [employer]- All Rights Reserved Reading location - IP/workstation name: [email or web address]
--- NOTE | 2019-08-14 17:46 | EKG REPORT ---
SEVERITY:- ABNORMAL ECG - ATRIAL-VENTRICULAR DUAL-PACED RHYTHM : Confirmed by: Jean Marie Hawley MD 14-Aug-2019 17:45:07
[2019-08-14 17:55] LABS: ABSOLUTE EOSINOPHILS # (AUTO) 0.1 10^3/uL (0.0-0.6); ABSOLUTE MONOCYTES (AUTO) 0.6 10^3/uL (0.1-1.4); ABSOLUTE NEUT (AUTO) 8.3 10^3/uL (1.7-8.2); BASOPHILS % (AUTO) 0.4 % (0-2); EOSINOPHILS % (AUTO) 0.5 % (0-6); HEMATOCRIT 25.9 % (37.9-51.0); HEMOGLOBIN 8.7 g/dL (13.5-17.0); LYMPHOCYTES % (AUTO) 9.7 % (13-45); MEAN CORPUSCULAR HEMOGLOBIN 34.4 pg (27.0-33.4); MEAN CORPUSCULAR HGB CONC 33.8 g/dL (32.0-36.0); MEAN CORPUSCULAR VOLUME 102 fl (80-97); MONOCYTES % (AUTO) 5.8 % (3-13); PLATELET COUNT 255 10^3/uL (150-450); RED BLOOD COUNT 2.54 10^6/uL (4.35-5.55); RED CELL DISTRIBUTION WIDTH 14.5 % (11.5-14.0); SEGMENTED NEUTROPHILS % (AUTO) 83.6 % (42-78); TOTAL CELLS COUNTED % (AUTO) 100 %; WHITE BLOOD COUNT 9.9 10^3/uL (4.0-10.5)
[2019-08-14 18:12] LABS: ALBUMIN 2.7 g/dL (3.5-5.0); ALKALINE PHOSPHATASE 77 U/L (38-126); ANION GAP 10 (5-19); ASPARTATE AMINO TRANSFERASE 29 U/L (17-59); BILIRUBIN,DIRECT 0.2 mg/dL (0.0-0.4); BILIRUBIN,TOTAL 0.8 mg/dL (0.2-1.3); BLOOD UREA NITROGEN 32 mg/dL (7-20); CALCIUM 11.3 mg/dL (8.4-10.2); CARBON DIOXIDE 23 mmol/L (22-30); CHLORIDE 103 mmol/L (98-107); GLUCOSE 95 mg/dL (75-110); POTASSIUM 4.6 mmol/L (3.6-5.0); TOTAL PROTEIN 5.4 g/dL (6.3-8.2)
--- NOTE | 2019-08-14 21:26 | ER Document Report ---
ED General - General Chief Complaint: Cough Stated Complaint: COUGH Time Seen by Provider: 08/14/19 20:57 Primary Care Provider: ELOISA MARTINES MD [Primary Care Provider] - Follow up as needed Notes: Patient is an 84-year-old male that comes emergency department for chief complaint of coughing out blood clots. 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 Patient denies shortness of breath, chest pain, abdominal pain, dizziness, or any current complaints. Patient is currently at [facility] for rehab because of recovery from her recent back surgery in [place]. He states he has seen ENT at [place] as well and he previously had surgery on the abnormal area. He states that he has a history of prostate cancer but he was told that the abnormal area was caused by agent orange. TRAVEL OUTSIDE OF THE [place] IN LAST 30 DAYS: No - Related Data Allergies/Adverse Reactions: No Known Allergies Allergy (Unverified 12/20/14 10:45) Past Medical History - General Information source: Patient - Social History Smoking Status: Unknown if Ever Smoked Chew tobacco use (# tins/day): No Frequency of alcohol use: None Drug Abuse: None Lives with: Family Family History: Reviewed & Not Pertinent Patient has suicidal ideation: No Patient has homicidal ideation: No - Past Medical History Cardiac Medical History: Reports: Hx Heart Attack - didn't know it, Hx Hypert ension Pulmonary Medical History: Denies: Hx Asthma, Hx COPD, Hx Sleep Apnea Neurological Medical History: Denies: Hx Cerebrovascular Accident, Hx Seizures GI Medical History: Denies: Hx Hepatitis, Hx Hiatal Hernia, Hx Ulcer Infectious Medical History: Denies: Hx Hepatitis Past Surgical History: Reports: Hx Coronary Stent, Hx Pacemaker - medtronic, Other - Resection of throat cancer - Immunizations Immunizations up to date: Yes Hx Diphtheria, Pertussis, Tetanus Vaccination: Yes Review of Systems - Review of Systems Constitutional: No symptoms reported EENT: See HPI Cardiovascular: See HPI Respiratory: No symptoms reported Gastrointestinal: No symptoms reported Genitourinary: No symptoms reported Male Genitourinary: No symptoms reported Musculoskeletal: No symptoms reported Skin: No symptoms reported Hematologic/Lymphatic: No symptoms reported Neurological/Psychological: No symptoms reported Physical Exam - Vital signs Vitals: Temp Pulse Resp BP Pulse Ox 97.7 F 70 22 H 130/62 H 92 08/14/19 16:48 08/14/19 16:48 08/14/19 16:48 08/14/19 16:48 08/14/19 16:48 - Notes Notes: GENERAL: Alert, interacts well. No acute distress. Pleasant and conversational HEAD: Normocephalic, atraumatic. EYES: Pupils equal, round, and reactive to light. Extraocular movements intact. ENT: Oral mucosa moist, tongue midline. Oropharynx unremarkable without obvious blood or current bleeding. Airway patent. Nares patent, no nasal septal hematoma, TM's intact. NECK: Full range of motion. Supple. Trachea midline. LUNGS: Clear to auscultation bilaterally, no wheezes, rales, or rhonchi. No respiratory distress. HEART: Regular rate and rhythm. No murmur ABDOMEN: Soft, non-tender. Non-distended. EXTREMITIES: Moves all 4 extremities spontaneously. Marked swelling of the left lower extremity compared to the right, distal neurovascular exam unremarkable. BACK: no cervical, thoracic, lumbar midline tenderness. NEUROLOGICAL: Alert and oriented x3. Normal speech. Cranial nerves II through XII grossly intact. PSYCH: Normal affect, normal mood. SKIN: Warm, dry, normal turgor. No rashes or lesions noted. Course - Re-evaluation Re-evalutation: Patient's clinical picture is concerning. He reportedly has a history of a laryngeal cartilage neoplasm, has been coughing up blood, states he had this op erated on at [place] in the past, he is on Eliquis, he has a left lower extremity DVT, and he has positive blood in his stools. Stools are not grossly bloody in appearance however. In addition to this hemoglobin has dropped from last month from 11.2-->8.7, type and screen will be performed, we will recheck hemoglobin at the same time. Recheck hemoglobin is 8. CT not performed because of elevated creatinine. Patient incidentally has a urinary tract infection, urine culture, given a dose of Rocephin. Discussed with Dr. London. Recommendation is to contact [place] for surgical follow-up with the same surgeons that he has been following with, patient does state that he did follow after the surgery. 08/14/19 22:48 I have spoken with Dr. Verdugo ENT at [place], she recommends patient be transferred/accepted to the emergency department so she can evaluate patient and plan to take patient to the operating room. She recommends blood products, if transport is delayed she requests CT of the soft tissues of the neck with contrast despite his renal functioning. Transfusion products ordered. Fortunately patient's airway is stable this time, he has no respiratory distress, he has not coughed up any blood clots recently, his vital signs are unremarkable. Updated Dr. London. Patient is very agreeable with plan. 08/14/19 23:54 Transport team is also here, patient was reevaluated at bedside, blood pressure is 130 systolic, he is not tachycardic, no change in his airway or appearance. Patient is stable for transport. - Vital Signs Vital signs: Temp Pulse Resp BP Pulse Ox 98.1 F 70 15 128/63 H 96 08/15/19 00:27 08/15/19 00:27 08/15/19 00:27 08/15/19 00:28 08/15/19 00:28 - Laboratory Result Diagrams: 08/14/19 21:35 08/14/19 17:30 Laboratory results interpreted by me: 08/14/19 08/14/19 08/14/19 17:30 17:30 21:35 RBC 2.54 L Hgb 8.7 L Hct 25.9 L MCV 102 H MCH 34.4 H RDW 14.5 H Lymph % (Auto) 9.7 L Absolute Neuts (auto) 8.3 H Seg Neutrophils % 83.6 H PT 31.9 H APTT 42.3 H Sodium 135.7 L BUN 32 H Creatinine 2.52 H Est GFR ( Amer) 30 L Est GFR (MDRD) Non-Af 25 L Calcium 11.3 H Total Protein 5.4 L Albumin 2.7 L Urine Protein Urine Blood Urine Urobilinogen Ur Leukocyte Esterase Crossmatch 08/14/19 08/14/19 08/14/19 21:35 21:35 21:41 RBC 2.32 L Hgb 8.0 L Hct 24.0 L MCV 103 H MCH 34.5 H RDW 14.7 H Lymph % (Auto) Absolute Neuts (auto) Seg Neutrophils % PT APTT Sodium BUN Creatinine Est GFR ( Amer) Est GFR (MDRD) Non-Af Calcium Total Protein Albumin Urine Protein 30 H Urine Blood MODERATE H Urine Urobilinogen 2.0 H Ur Leukocyte Esterase LARGE H Crossmatch See Detail Discharge - Discharge Clinical Impression: Hemorrhage from pharynx Anemia Qualifiers: Anemia type: unspecified type Qualified Code(s): D64.9 - Anemia, unspecified Condition: Stable Disposition: [facility] Referrals: ELOISA MARTINES MD [Primary Care Provider] - Follow up as needed
[2019-08-14 22:01] LABS: INTERNATIONAL RATION (INR) 3.01; MEAN CORPUSCULAR HEMOGLOBIN 34.5 pg (27.0-33.4); MEAN CORPUSCULAR HGB CONC 33.4 g/dL (32.0-36.0); MEAN CORPUSCULAR VOLUME 103 fl (80-97); PARTIAL THROMBOPLASTIN TIME 42.3 SEC (23.5-35.8); PLATELET COUNT 226 10^3/uL (150-450); PROTHROMBIN TIME 31.9 SEC (11.4-15.4); RED BLOOD COUNT 2.32 10^6/uL (4.35-5.55); RED CELL DISTRIBUTION WIDTH 14.7 % (11.5-14.0); WHITE BLOOD COUNT 9.2 10^3/uL (4.0-10.5)
[2019-08-14 22:07] LABS: APPEARANCE,URINE CLOUDY; BILIRUBIN,URINE NEGATIVE (NEGATIVE); GLUCOSE, URINE NEGATIVE (NEGATIVE); KETONES,URINE NEGATIVE (NEGATIVE); LEUKOCYTE ESTERASE,URINE LARGE (NEGATIVE); NITRITE,URINE NEGATIVE (NEGATIVE); PROTEIN,URINE 30 mg/dL (NEGATIVE); URINE SPECIFIC GRAVITY 1.013
[2019-08-14 22:10] LABS: COLOR,URINE YELLOW
[2019-08-14] MEDS ORDERED: CEFTRIAXONE 1 GM/D5W RTU 1 GM/50 ML RTUPB IV ONE (22:15)
[2019-08-14] MEDS ORDERED: NORMAL SALINE 250 ML IV PRN ×2 (22:42)
[2019-08-15 00:29] VITALS: BP 128/63
== END 2019-08-15 00:35 | disposition short-term general hospital (02) ==
LOC: ER 16:47
DX: R04.1 Hemorrhage from throat (principal); D64.9 Anemia, unspecified; R05 Cough; R49.0 Dysphonia; M94.9 Disorder of cartilage, unspecified; Z79.01 Long term (current) use of anticoagulants; I25.2 Old myocardial infarction; I10 Essential (primary) hypertension
CPT/HCPCS: 93005; 99285; 96365; 86900; 86901; 36415; 87086; 36430; 86850; 85025; 85610; 85730; 87088; 80053; 81001; 86920; 71045; 93010; P9016; J0696; 87186

== ENCOUNTER 2019-08-19 10:07 | Emergency (ER) | payer MEDICARE, OTHER ==
[2019-08-19 11:32] LABS: ABSOLUTE LYMPHOCYTES (AUTO) 1.1 10^3/uL (0.5-4.7); ABSOLUTE MONOCYTES (AUTO) 0.6 10^3/uL (0.1-1.4); ABSOLUTE NEUT (AUTO) 6.3 10^3/uL (1.7-8.2); BASOPHILS % (AUTO) 0.2 % (0-2); EOSINOPHILS % (AUTO) 0.4 % (0-6); HEMATOCRIT 31.5 % (37.9-51.0); HEMOGLOBIN 10.6 g/dL (13.5-17.0); LYMPHOCYTES % (AUTO) 13.5 % (13-45); MEAN CORPUSCULAR HEMOGLOBIN 33.1 pg (27.0-33.4); MEAN CORPUSCULAR HGB CONC 33.8 g/dL (32.0-36.0); MONOCYTES % (AUTO) 7.1 % (3-13); PLATELET COUNT 255 10^3/uL (150-450); RED BLOOD COUNT 3.21 10^6/uL (4.35-5.55); RED CELL DISTRIBUTION WIDTH 17.4 % (11.5-14.0); SEGMENTED NEUTROPHILS % (AUTO) 78.8 % (42-78); TOTAL CELLS COUNTED % (AUTO) 100 %
[2019-08-19 11:33] LABS: MEAN CORPUSCULAR VOLUME 98 fl (80-97)
[2019-08-19 11:40] LABS: APPEARANCE,URINE TURBID; BILIRUBIN,URINE NEGATIVE (NEGATIVE); COLOR,URINE AMBER; GLUCOSE, URINE NEGATIVE (NEGATIVE); KETONES,URINE 20 mg/dL (NEGATIVE); LEUKOCYTE ESTERASE,URINE LARGE (NEGATIVE); NITRITE,URINE NEGATIVE (NEGATIVE); PROTEIN,URINE 30 mg/dL (NEGATIVE); URINE SPECIFIC GRAVITY 1.013; UROBILINOGEN,URINE NEGATIVE mg/dL (<2.0)
[2019-08-19 11:57] LABS: ALKALINE PHOSPHATASE 80 U/L (38-126); ANION GAP 14 (5-19); ASPARTATE AMINO TRANSFERASE 89 U/L (17-59); BILIRUBIN,DIRECT 0.4 mg/dL (0.0-0.4); BLOOD UREA NITROGEN 29 mg/dL (7-20); CALCIUM 11.8 mg/dL (8.4-10.2); CARBON DIOXIDE 20 mmol/L (22-30); CHLORIDE 108 mmol/L (98-107); GLUCOSE 82 mg/dL (75-110); POTASSIUM 3.7 mmol/L (3.6-5.0); TOTAL PROTEIN 5.8 g/dL (6.3-8.2)
--- NOTE | 2019-08-19 12:03 | RADIOLOGY REPORT (SQ) ---
EXAM DESCRIPTION: CT HEAD WITHOUT COMPLETED DATE/TIME: 08/19/2019 11:49 am REASON FOR STUDY: altered mental status COMPARISON: None. TECHNIQUE: Axial images acquired through the brain without intravenous contrast. Images reviewed wi th bone, brain and subdural windows. Additional sagittal and coronal reconstructions were generated. Images stored on PACS. All CT scanners at this facility use dose modulation, iterative reconstruction, and/or weight based d osing when appropriate to reduce radiation dose to as low as reasonably achievable (ALARA). [facility]: Dose Right [facility]: CareDose [facility]: Dose Right [facility]: Teradose 4D [facility]: Smart [employer] RADIATION DOSE: CT Rad equipment meets quality standard of care and radiation dose reduction techniq ues were employed. CTDIvol: 53.2 mGy. DLP: 1044 mGy-cm. mGy. LIMITATIONS: None. FINDINGS: VENTRICLES: Ventricular prominence. This is relatively diffuse and suspected to be atroph y related. No hemorrhage or mass. CEREBRUM: No masses. No hemorrhage. No midline shift. No evidence for acute infarction. 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 CEREBELLUM: No masses. No hemorrhage. No alteration of density. No evidence for acute infarction. EXTRAAXIAL SPACES: No hemorrhage or mass. ORBITS AND GLOBE: No intra- or extraconal masses. Normal contour of globe without masses. CALVARIUM: No fracture. PARANASAL SINUSES: No fluid or mucosal thickening. SOFT TISSUES: No mass or hematoma. OTHER: No other significant finding. IMPRESSION: 1. Chronic brain changes. 2. No acute intracranial abnormality. EVIDENCE OF ACUTE STROKE: NO. COMMENT: Quality ID # [id number]: Final reports with documentation of one or more dose reduction techniques (e.g., Automated exposure control, adjustment of the mA and/or kV according to patient size, use of iterative reconstruction technique) TECHNICAL DOCUMENTATION: JOB ID: [id number] [employer]- All Rights Reserved Reading location - IP/workstation name: [email or web address]
[2019-08-19 12:47] LABS: CREATINE KINASE 44 U/L (55-170)
--- NOTE | 2019-08-19 13:35 | ER Document Report ---
Entered by ELOISA GUERRA SCRIBE 08/19/19 1109 Acting as scribe for:SHARON ROJO MD ED General - General Chief Complaint: Altered Mental Status Stated Complaint: WEAKNESS Time Seen by Provider: 08/19/19 11:08 Primary Care Provider: ELOISA MARTINES MD [Primary Care Provider] - Follow up as needed Mode of Arrival: Medic Information source: Patient, [facility] Records Notes: Patient is a 84 year old male arriving via EMS presenting to the emergency department sent by [facility] rehab for altered mental status. The detention and the spouse report that he seemed confused. Patient was discharged back to back to [facility] from [facility] last night. at bedside states that his nurse reported he had black/bloody stool last night and this morning. Patient was seen here at [place] on 08/14/2019 for coughing up blood clots. At that time the patient's hemoglobin dropped to 8.0, he was transfused 1 unit of packed red cells and transferred to [facility]. 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 When he was seen here on 08/14/2019, he had a urinalysis showing too numerous to count WBCs which grew E. coli with near polk-sensitivity. The family reports that the patient has been urinating a lot and cannot hold his urine, and complains of severe pain making him urinate. Reviewing the records, I am unable to determine if he had the urine infection treated. Pertinent PMHx/PSHx: DVT, hypertension, coronary stents, heart attack Additional PMHx/PSHx not pertinent to this visit as recorded: Resection of throat cancer PCP: Dr. Martines TRAVEL OUTSIDE OF THE [place] IN LAST 30 DAYS: No - Related Data Allergies/Adverse Reactions: No Known Allergies Allergy (Verified 08/19/19 10:43) Past Medical History - General Information source: Patient, Relative, Emergency Med Personnel, [facility] Records - Social History Smoking Status: Unknown if Ever Smoked Cigarette use (# per day): No Chew tobacco use (# tins/day): No Smoking Education Provided: No Frequency of alcohol use: None Drug Abuse: None Lives with: Long Term - Currently is at [facility] for rehab following back surgery and postoperative complications. Family History: Reviewed & Not Pertinent - Past Medical History Cardiac Medical History: Reports: Hx DVT, Hx Heart Attack - didn't know it, Hx Hypertension Malignancy Medical History: Reports Hx Prostate Cancer - Treated with radiation therapy, Reports Other - Laryngeal cancer treated with resection Musculoskeletal Medical History: Reports Hx Arthritis Past Surgical History: Reports: Hx Coronary Stent, Hx Pacemaker - medtronic, Other - Resection of throat cancer - Immunizations Immunizations up to date: Yes Hx Diphtheria, Pertussis, Tetanus Vaccination: Yes Review of Systems - Review of Systems Constitutional: No symptoms reported EENT: Other - Hoarse voice ever since he had surgery on his vocal cords for a laryngeal cancer almost 2 years ago. Cardiovascular: No symptoms reported Respiratory: No symptoms reported Gastrointestinal: See HPI, Black stools, Last bowel movement - yesterday, Other - Bloody stool Genitourinary: Burning, Dysuria, Frequency, Urgency Musculoskeletal: No symptoms reported Skin: No symptoms reported Hematologic/Lymphatic: No symptoms reported Neurological/Psychological: Confusion Physical Exam - Vital signs Vitals: Resp BP Pulse Ox 18 170/71 H 96 08/19/19 10:19 08/19/19 10:19 08/19/19 10:19 - Notes Notes: Physical Exam: General: Confused, appears well. HEENT: Normocephalic. Atraumatic. PERRL. Extraocular movements intact. Oropharynx clear. Dry mouth. Conjunctiva pale. Neck: Non-tender. Respiratory: No respiratory distress. Clear and equal breath sounds bilaterally. Cardiovascular: Regular rate and rhythm. Abdominal: Normal Inspection. Non-tender. No distension. Normal Bowel Sounds. Back: No gross abnormalities. Rectal: Stool was mucousy, reddish-brown. Was not particularly dark. There was an undigested pill seen. Extremities: Moves all four extremities. Upper extremities: Normal inspection. Normal ROM. Lower extremities: Normal inspection. No edema. Normal ROM. Neurological: Confused. Oriented to person and spouse. Speech is thick and slightly slurred. Psychological: Patient is a little confused, seems to be a little anxious. Skin: Warm. Dry. Pale. Nailbeds pale. Course - Re-evaluation Re-evalutation: 08/19/19 16:00 This time there are several family members in the room with the patient. He is much more alert now than he was earlier and is able to better describe his urinary frequency, urgency, and discomfort. The patient did have a hemoglobin that dropped to 8.0 prior to receiving 1 unit of packed RBCs on 08/15/2019. When he got to [facility] later on 08/15/2019 his hemoglobin was 9.2, the following day on 08/16/2019 the hemoglobin was 9.6 Today the patient's hemoglobin is 10.6, so I suspect the bloody stool is related to blood that he swallowed when he was here a few days ago and coughing up blood. - Vital Signs Vital signs: Temp Pulse Resp BP Pulse Ox 97.7 F 15 178/80 H 100 08/19/19 10:46 08/19/19 15:01 08/19/19 15:01 08/19/19 15:01 - Laboratory Result Diagrams: 08/19/19 11:11 08/19/19 11:11 Laboratory results interpreted by me: 08/19/19 08/19/19 08/19/19 11:11 11:11 11:11 RBC 3.21 L Hgb 10.6 L Hct 31.5 L MCV 98 H D RDW 17.4 H Seg Neutrophils % 78.8 H Chloride 108 H Carbon Dioxide 20 L BUN 29 H Creatinine 2.08 H Est GFR ( Amer) 37 L Est GFR (MDRD) Non-Af 31 L Calcium 11.8 H AST 89 H Creatine Kinase Total Protein 5.8 L Albumin 3.0 L Urine Protein 30 H Urine Ketones 20 H Urine Blood LARGE H Ur Leukocyte Esterase LARGE H 08/19/19 11:11 RBC Hgb Hct MCV RDW Seg Neutrophils % Chloride Carbon Dioxide BUN Creatinine Est GFR ( Amer) Est GFR (MDRD) Non-Af Calcium AST Creatine Kinase 44 L Total Protein Albumin Urine Protein Urine Ketones Urine Blood Ur Leukocyte Esterase - Diagnostic Test Radiology reviewed: Image reviewed, Reports reviewed - CT scan of the head shows chronic changes with nothing acute. - EKG Interpretation by Me EKG shows normal: Sinus rhythm, [place], Intervals, QRS Complexes, ST-T Waves Rate: Normal - 79 Rhythm: Other - Ventricular paced rhythm Discharge - Discharge Clinical Impression: Ambulatory dysfunction Anemia Qualifiers: Anemia type: unspecified type Qualified Code(s): D64.9 - Anemia, unspecified Urinary tract infection Qualifiers: Urinary tract infection type: acute cystitis Hematuria presence: with hematuria Qualified Code(s): N30.01 - Acute cystitis with hematuria Condition: Stable Disposition: HOME-SNF (ED ONLY) Additional Instructions: Urinary Tract Infection Your evaluation indicates that you have a urinary tract infection. This is due to germs growing in the bladder. This is a common problem. This infection usually responds quickly to antibiotics. Your antibiotic should be taken exactly as prescribed. Drink plenty of fluids -- three to four quarts a day. Occasionally, a bladder anesthetic will be prescribed to help stop the feeling of urgency until the antibiotic has a chance to clear the infection. This may cause your urine to be dark orange. Certain urine infections require a culture. If the doctor obtained a culture, the results will be back in two days. You should call to see if a change in treatment is needed. A repeat urinalysis after you finish treatment is often recommended. The physician will let you know if further testing is required. Call the doctor if you develop fever, chills, flank pain, inability to urinate, or blood in the urine. Your hemoglobin today was much higher than the most recent one checked when you were in [place]. The dark, heme positive stools you had were probably caused by blood you swallowed when you were seen here on 08/14/2019. When you were seen here 5 days ago, your urine test showed an infection. I was not able to determine if you were ever started on medication for the urine infection. Start taking the antibiotics as prescribed, only if another antibiotic has not already been started, but was not noted in the records that were sent from the detention. Follow-up with your primary care provider tomorrow for recheck. RETURN TO THE EMERGENCY ROOM IF ANY NEW OR WORSENING SYMPTOMS. Prescriptions: Levofloxacin [Levaquin 250 mg Tablet] 250 mg PO DAILY #3 tablet Phenazopyridine HCl [Pyridium 200 mg Tablet] 200 mg PO TID #8 tablet Referrals: ELOISA MARTINES MD [Primary Care Provider] - Follow up as needed Scribe Attestation: 08/19/19 15:45 I personally performed the services described in the documentation, reviewed and edited the documentation which was dictated to the scribe in my presence, and it accurately records my words and actions. I personally performed the services described in the documentation, reviewed and edited the documentation which was dictated to the scribe in my presence, and it accurately records my words and actions.
[2019-08-19] MEDS ORDERED: CEFTRIAXONE 1 GM/D5W RTU 1 GM/50 ML RTUPB IV ONE (13:36)
[2019-08-19] MEDS ORDERED: PHENAZOPYRIDINE HCL 200 MG TABLET PO ONE (15:43)
--- NOTE | 2019-08-19 15:49 | EKG REPORT ---
SEVERITY:- ABNORMAL ECG - VENTRICULAR-PACED RHYTHM : Confirmed by: Jean Marie Hawley MD 19-Aug-2019 15:47:54
[2019-08-19 16:14] VITALS: BP 161/94
== END 2019-08-19 16:30 ==
LOC: ER 10:07
DX: N30.01 Acute cystitis with hematuria (principal); D64.9 Anemia, unspecified; R26.9 Unspecified abnormalities of gait and mobility; R41.82 Altered mental status, unspecified; R53.1 Weakness; Z79.01 Long term (current) use of anticoagulants; Z86.718 Personal history of other venous thrombosis and embolism; R30.9 Painful micturition, unspecified; I10 Essential (primary) hypertension; I25.2 Old myocardial infarction
CPT/HCPCS: 93005; 99285; 96374; 36415; 87086; 82550; 83735; 85025; 87088; 80053; 81001; 84484; 70450; 93010; A9270; J0696; 87186; J3490

== ENCOUNTER 2019-08-20 23:31 | Emergency (ER) | payer MEDICARE ==
[2019-08-21] MEDS ORDERED: NORMAL SALINE 1000 ML 1,000 ML IV ONE (01:10)
--- NOTE | 2019-08-21 01:14 | ER Document Report ---
ED General - General Chief Complaint: GI Bleeding Stated Complaint: BLOOD IN STOOL AND URINE Time Seen by Provider: 08/21/19 00:34 Primary Care Provider: ELOISA MARTINES MD [Primary Care Provider] - Follow up as needed Notes: 84-year-old man presents to the emergency department with a history of a DVT diagnosed in late July. He was started on blood thinners at that time. The notes that she was contacted by the long-term care facility to note that he was having nosebleed and blood in his stool and urine. He denies pain and has been very weak and has poor intake. He was seen in emergency department yesterday at that time diagnosed with a UTI and started on oral antibiotics Levaquin 250 mg x 3 days. His notes that he has gotten weaker and not eating. TRAVEL OUTSIDE OF THE [place] IN LAST 30 DAYS: No - Related Data Allergies/Adverse Reactions: No Known Allergies Allergy (Verified 08/19/19 10:43) Home Medications: see chart from [facility] Past Medical History - Social History Smoking Status: Never Smoker Frequency of alcohol use: None Family History: Reviewed & Not Pertinent Patient has suicidal ideation: No Patient has homicidal ideation: No - Past Medical History Cardiac Medical History: Reports: Hx Atrial Fibrillation, Hx DVT, Hx Heart Attack - didn't know it, Hx Hypertension Pulmonary Medical History: Denies: Hx Asthma, Hx COPD, Hx Sleep Apnea Neurological Medical History: Denies: Hx Cerebrovascular Accident, Hx Seizures Malignancy Medical History: Reports Hx Prostate Cancer - Treated with radiation therapy GI Medical History: Reports: Hx Gastroesophageal Reflux Disease. Denies: Hx Hepatitis, Hx Hiatal Hernia, Hx Ulcer Musculoskeletal Medical History: Reports Hx Arthritis Infectious Medical History: Denies: Hx Hepatitis Past Surgical History: Reports: Hx Abdominal Surgery - colon resection, Hx Appendectomy, Hx Cardiac Catheterization - stent x2, Hx Cardiac Surgery - pace maker, Hx Coronary Stent, Hx Genitourinary Surgery - prostatectomy, Hx Nose Surgery - basal cell carcinoma, Hx Orthopedic Surgery - rt carpal tunnel, lumbar laminectomy decompression, Hx Pacemaker - medtronic, Other - Resection of throat cancer - Immunizations Immunizations up to date: Yes Hx Diphtheria, Pertussis, Tetanus Vaccination: Yes Review of Systems - Review of Systems Notes: Constitutional: Generalized weakness HENT: Negative for sore throat. Eyes: Negative for visual changes. Cardiovascular: Negative for chest pain. Respiratory: Negative for shortness of breath. Gastrointestinal: Negative for abdominal pain, vomiting or diarrhea. Genitourinary: Negative for dysuria. Musculoskeletal: Negative for back pain. Skin: Negative for rash. Neurological: Negative for headaches, weakness or numbness. 10 point ROS negative except as marked above and in HPI. Physical Exam - Vital signs Vitals: Pulse Ox 98 08/20/19 23:55 - Notes Notes: PHYSICAL EXAMINATION: Physical Exam: General: Chronically ill 84-year-old man in no acute distress HEENT: NC/AT, pupils equal round and reactive to light, MM moist,nares clear, Neck: supple, no adenopathy, no masses. Lungs: clear, no wheezing, no rales no rhonchi CVS: Regular rate and rhythm no murmur gallop or rub Abdomen: Soft active nontender, no masses, no hepatosplenomegaly Ext: No edema clubbing or cyanosis. Neuro: Alert and responsive, no focal neurologic findings Skin: Intact no open lesions, no rash Course - Re-evaluation Re-evalutation: 08/21/19 04:33 Patient was brought to the emergency department because of blood seen at the long-term care facility in his diaper and reportedly nosebleed. Examination re veals no evidence of a nosebleed, heme positive stool, however, hematocrit stable and increased from prior ED visit day ago. Patient is given a gram of Rocephin IV. 08/21/19 04:41 The patient was given 1 L of IV fluids, calcium of 12.0 may remain related to earlier transfusion. Renal insufficiency appears to be stable and patient will be back to the long-term care facility. 08/21/19 04:43 The urine culture from 08/14/2019 reveals E. coli greater than 100,000 colonies sensitivity to Levaquin and ceftriaxone. - Vital Signs Vital signs: Temp Pulse Resp BP Pulse Ox 97.7 F 72 12 153/68 H 96 08/21/19 04:01 08/21/19 00:03 08/21/19 04:01 08/21/19 04:01 08/21/19 04:01 - Laboratory Result Diagrams: 08/21/19 01:40 08/21/19 01:40 Laboratory results interpreted by me: 08/21/19 08/21/19 08/21/19 01:40 01:40 01:40 RBC 3.51 L Hgb 11.6 L Hct 34.7 L MCV 99 H RDW 17.6 H PT 18.5 H Potassium 3.3 L BUN 28 H Creatinine 2.10 H Est GFR ( Amer) 37 L Est GFR (MDRD) Non-Af 30 L Calcium 12.0 H* AST 64 H Total Protein 5.8 L Albumin 3.1 L Urine Ketones Urine Blood Urine Nitrite Ur Leukocyte Esterase 08/21/19 02:49 RBC Hgb Hct MCV RDW PT Potassium BUN Creatinine Est GFR ( Amer) Est GFR (MDRD) Non-Af Calcium AST Total Protein Albumin Urine Ketones TRACE H Urine Blood MODERATE H Urine Nitrite POSITIVE H Ur Leukocyte Esterase LARGE H I have reviewed laboratory data and used this information for the treatment decisions regarding the patient. Discharge - Discharge Clinical Impression: Heme positive stool Urinary tract infection Qualifiers: Urinary tract infection type: acute cystitis Hematuria presence: with hematuria Qualified Code(s): N30.01 - Acute cystitis with hematuria Anemia Qualifiers: Anemia type: other cause Other causes of anemia: other cause, not classified Qualified Code(s): D64.89 - Other specified anemias Acute on chronic kidney failure Qualifiers: Acute renal failure type: unspecified Chronic kidney disease stage: unspecified stage Qualified Code(s): N17.9 - Acute kidney failure, unspecified Condition: Good Disposition: HOME, SELF-CARE Instructions: Urinary Tract Infection ([facility]) Additional Instructions: Your urine shows findings consistent with a urinary tract infection. Please take all the antibiotics as directed even if your symptoms have improved. Please follow-up with your primary care physician as needed. Return to emergency room if you develop fever >101F, persistent vomiting, become lethargic, have severe pain in your sides, or any other symptoms that are concerning to you. Referrals: ELOISA MARTINES MD [Primary Care Provider] - Follow up as needed
[2019-08-21 02:00] LABS: ABSOLUTE EOSINOPHILS # (AUTO) 0.1 10^3/uL (0.0-0.6); ABSOLUTE LYMPHOCYTES (AUTO) 1.3 10^3/uL (0.5-4.7); ABSOLUTE MONOCYTES (AUTO) 0.5 10^3/uL (0.1-1.4); ABSOLUTE NEUT (AUTO) 5.8 10^3/uL (1.7-8.2); BASOPHILS % (AUTO) 0.5 % (0-2); EOSINOPHILS % (AUTO) 1.2 % (0-6); HEMATOCRIT 34.7 % (37.9-51.0); HEMOGLOBIN 11.6 g/dL (13.5-17.0); LYMPHOCYTES % (AUTO) 16.9 % (13-45); MEAN CORPUSCULAR HGB CONC 33.4 g/dL (32.0-36.0); MEAN CORPUSCULAR VOLUME 99 fl (80-97); MONOCYTES % (AUTO) 6.6 % (3-13); PLATELET COUNT 218 10^3/uL (150-450); RED BLOOD COUNT 3.51 10^6/uL (4.35-5.55); RED CELL DISTRIBUTION WIDTH 17.6 % (11.5-14.0); SEGMENTED NEUTROPHILS % (AUTO) 74.8 % (42-78); TOTAL CELLS COUNTED % (AUTO) 100 %; WHITE BLOOD COUNT 7.7 10^3/uL (4.0-10.5)
[2019-08-21 02:16] LABS: INTERNATIONAL RATION (INR) 1.52; PROTHROMBIN TIME 18.5 SEC (11.4-15.4)
[2019-08-21 02:17] LABS: PARTIAL THROMBOPLASTIN TIME 30.3 SEC (23.5-35.8)
[2019-08-21 02:46] LABS: ALBUMIN 3.1 g/dL (3.5-5.0); ALKALINE PHOSPHATASE 78 U/L (38-126); ANION GAP 14 (5-19); ASPARTATE AMINO TRANSFERASE 64 U/L (17-59); BILIRUBIN,DIRECT 0.2 mg/dL (0.0-0.4); BILIRUBIN,TOTAL 0.9 mg/dL (0.2-1.3); BLOOD UREA NITROGEN 28 mg/dL (7-20); CARBON DIOXIDE 22 mmol/L (22-30); CHLORIDE 107 mmol/L (98-107); GLUCOSE 80 mg/dL (75-110); POTASSIUM 3.3 mmol/L (3.6-5.0); TOTAL PROTEIN 5.8 g/dL (6.3-8.2)
[2019-08-21 03:05] LABS: APPEARANCE,URINE SLIGHTLY-CLOUDY; BILIRUBIN,URINE NEGATIVE (NEGATIVE); COLOR,URINE AMBER; GLUCOSE, URINE NEGATIVE (NEGATIVE); KETONES,URINE TRACE mg/dL (NEGATIVE); LEUKOCYTE ESTERASE,URINE LARGE (NEGATIVE); NITRITE,URINE POSITIVE (NEGATIVE); PROTEIN,URINE NEGATIVE (NEGATIVE); URINE SPECIFIC GRAVITY 1.011; UROBILINOGEN,URINE NEGATIVE mg/dL (<2.0)
[2019-08-21] MEDS ORDERED: CEFTRIAXONE INJ 1000 MG VIAL IV ONE (03:37)
[2019-08-21 04:18] VITALS: BP 153/68
== END 2019-08-21 05:05 | disposition home or self-care (01) ==
LOC: ER 23:31
DX: K92.1 Melena (principal); N30.01 Acute cystitis with hematuria; I12.9 Hypertensive chronic kidney disease with stage 1 through stage 4 chronic kidney disease, or unspecified chronic kidney disease; N18.9 Chronic kidney disease, unspecified; N17.9 Acute kidney failure, unspecified; R53.1 Weakness; I82.409 Acute embolism and thrombosis of unspecified deep veins of unspecified lower extremity; I10 Essential (primary) hypertension; Z79.899 Other long term (current) drug therapy
CPT/HCPCS: 99285; 96361; 96374; 86900; 86901; 36415; 86850; 85025; 85610; 85730; 80053; 81001; J0696; J7030

== ENCOUNTER 2019-09-04 13:24 | Inpatient (IN) | payer MEDICARE, OTHER ==
[2019-09-04] MEDS ORDERED: NORMAL SALINE 1000 ML 1,000 ML IV ONE (13:39)
[2019-09-04] MEDS ORDERED: CEFTRIAXONE 2 GM/D5W RTU 2 GM/50 ML RTUPB IV ONE (13:40)
--- NOTE | 2019-09-04 13:45 | ER Document Report ---
ED General - General Chief Complaint: Altered Mental Status Stated Complaint: ALTERED MENTAL STATUS Primary Care Provider: ELOISA MARTINES MD [Primary Care Provider] - Follow up as needed Information source: Patient, Relative Cannot obtain history due to: Uncooperative TRAVEL OUTSIDE OF THE [place] IN LAST 30 DAYS: No - HPI Onset: Last week Onset/Duration: Gradual. denies: Sudden, Constant, Intermittent, Persistent, Waxing and waning, Better, Worse, Gone Quality of pain: Achy Severity: Mild Pain Level: 1 Associated symptoms: Chills, Diarrhea, Slow to respond, Weakness Exacerbated by: Denies Relieved by: Denies Similar symptoms previously: Yes - uti Notes: Is an 84-year-old with past mental history of left-sided DVT also frequent urinary tract infections and coronary artery disease per his as patient is only alert to his name at this time. Patient apparently over the last week is very drank and eaten very little. He and his is noticed that he today started developing loose watery diarrhea he has had some chills. These have been similar to previous episodes where he has had urinary tract infections in fact in the last within the last 8 weeks he has had IV antibiotics. Patient also has not been taking since yesterday his blood pressure medicine nor his medicine for gouty arthritis. - Related Data Allergies/Adverse Reactions: No Known Allergies Allergy (Verified 08/19/19 10:43) Past Medical History - General Cannot obtain history due to: Dementia - Social History Smoking Status: Former Smoker Lives with: Family Family History: Reviewed & Not Pertinent - Past Medical History Cardiac Medical History: Reports: Hx Atrial Fibrillation, Hx DVT, Hx Heart Attack - didn't know it, Hx Hypertension Pulmonary Medical History: Denies: Hx Asthma, Hx COPD, Hx Sleep Apnea Neurological Medical History: Denies: Hx Cerebrovascular Accident, Hx Seizures Malignancy Medical History: Reports Hx Prostate Cancer - Treated with radiation therapy GI Medical History: Reports: Hx Gastroesophageal Reflux Disease. Denies: Hx Hepatitis, Hx Hiatal Hernia, Hx Ulcer Musculoskeletal Medical History: Reports Hx Arthritis Infectious Medical History: Denies: Hx Hepatitis Past Surgical History: Reports: Hx Abdominal Surgery - colon resection, Hx Appendectomy, Hx Cardiac Catheterization - stent x2, Hx Cardiac Surgery - pacemaker, Hx Coronary Stent, Hx Genitourinary Surgery - prostatectomy, Hx Nose Surgery - basal cell carcinoma, Hx Orthopedic Surgery - rt carpal tunnel, lumbar laminectomy decompression, Hx Pacemaker - medtronic, Other - Resection of throat cancer - Immunizations Immunizations up to date: Yes Hx Diphtheria, Pertussis, Tetanus Vaccination: Yes Review of Systems - Review of Systems -: Yes ROS unobtainable due to patient's medical condition Physical Exam - Vital signs Vitals: Pulse Ox 94 09/04/19 13:42 Notes: PHYSICAL EXAMINATION: GENERAL: Cachectic appearing 82-year-old in mild distress. HEAD: Atraumatic, normocephalic. EYES: Pupils equal round and reactive to light, extraocular movements intact, sclera anicteric, conjunctiva are normal. ENT: nares patent, oropharynx clear without exudates. Very dry mucous membranes. NECK: Normal range of motion, supple without lymphadenopathy LUNGS: Breath sounds clear to auscultation bilaterally and equal. No wheezes rales or rhonchi. HEART: Regular rate and rhythm without murmurs ABDOMEN: Soft, nontender, normoactive bowel sounds. No guarding, no rebound. No masses appreciated. EXTREMITIES: Normal range of motion, no pitting or edema. No cyanosis. No erythema to his elbows wrists and knees however pain to palpation apparently has gout in these's per his NEUROLOGICAL: No focal neurological deficits. Moves all extremities spontaneously and on command. Is alert only to his name does not know the time or the date. PSYCH: Normal mood, normal affect. SKIN: Warm, Dry, normal turgor, no rashes or lesions noted. Course - Vital Signs Vital signs: Temp Pulse Resp BP Pulse Ox 99.2 F 17 106/51 L 95 09/04/19 14:25 09/04/19 16:01 09/04/19 16:01 09/04/19 16:01 - Laboratory Result Diagrams: 09/04/19 14:20 09/04/19 14:20 Laboratory results interpreted by me: 09/04/19 09/04/19 14:20 14:20 RBC 3.24 L Hgb 10.7 L Hct 31.6 L MCV 98 H RDW 17.5 H Seg Neutrophils % 80.7 H Sodium 136.8 L BUN 65 H Creatinine 3.70 H Est GFR ( Amer) 19 L Est GFR (MDRD) Non-Af 16 L Glucose 68 L Calcium 10.7 H Direct Bilirubin 0.5 H Total Protein 5.3 L Albumin 2.6 L - EKG Interpretation by Me EKG shows normal: Sinus rhythm Rate: Normal Additional EKG results interpreted by me: 09/04/19 16:37 Shows a ventricularly paced rhythm. No change significantly from previous EKG - Transfer of Care Notes: 09/04/19 16:38 After Elise was placed 900 cc of urine was obtained abdominal pain that he had earlier was mildly is gone now. Please no rectal per nurse was trace guaiac positive brown stools no black or bloody material Discharge - Discharge Clinical Impression: Dehydration Failure to thrive Qualifiers: Failure to thrive age range: in adult Qualified Code(s): R62.7 - Adult failure to thrive Condition: Good Disposition: ADMITTED INPATIENT Admitting Provider: Keke (Hospitalist) Unit Admitted: Telemetry Referrals: ELOISA MARTINES MD [Primary Care Provider] - Follow up as needed
--- NOTE | 2019-09-04 14:23 | RADIOLOGY REPORT (SQ) ---
EXAM DESCRIPTION: CHEST SINGLE VIEW COMPLETED DATE/TIME: 09/04/2019 2:00 pm REASON FOR STUDY: ?pneumonia COMPARISON: 08/14/2019 EXAM PARAMETERS: NUMBER OF VIEWS: One view. TECHNIQUE: Single frontal radiographic view of the chest acquired. RADIATION DOSE: NA LIMITATIONS: None. FINDINGS: LUNGS AND PLEURA: Stable chronic interstitial changes with linear opacities in the right m id lung and bilateral bases. No new airspace disease, pleural effusion or pneumothorax. Unchanged b lunting of the costophrenic angles, likely scarring. MEDIASTINUM AND HILAR STRUCTURES: Stable. HEART AND VASCULAR STRUCTURES: Normal heart size. Aortic atherosclerosis. Coronary atherosclerosis. BONES: No acute findings. HARDWARE: Left-sided cardiac pacer/ defibrillator with leads overlying right atrium, right ventricle and coronary sinus. OTHER: No other significant finding. IMPRESSION: Stable chronic interstitial changes without definite superimposed cardiopulmonary proces s. TECHNICAL DOCUMENTATION: JOB ID: [id number] [employer]- All Rights Reserved Reading location - IP/workstation name: [email or web address]
[2019-09-04 15:04] LABS: ABSOLUTE LYMPHOCYTES (AUTO) 1.3 10^3/uL (0.5-4.7); ABSOLUTE MONOCYTES (AUTO) 0.4 10^3/uL (0.1-1.4); ABSOLUTE NEUT (AUTO) 7.3 10^3/uL (1.7-8.2); BASOPHILS % (AUTO) 0.3 % (0-2); EOSINOPHILS % (AUTO) 0.4 % (0-6); HEMATOCRIT 31.6 % (37.9-51.0); HEMOGLOBIN 10.7 g/dL (13.5-17.0); LYMPHOCYTES % (AUTO) 14.4 % (13-45); MEAN CORPUSCULAR HEMOGLOBIN 32.9 pg (27.0-33.4); MEAN CORPUSCULAR HGB CONC 33.7 g/dL (32.0-36.0); MEAN CORPUSCULAR VOLUME 98 fl (80-97); MONOCYTES % (AUTO) 4.2 % (3-13); PLATELET COUNT 229 10^3/uL (150-450); RED BLOOD COUNT 3.24 10^6/uL (4.35-5.55); RED CELL DISTRIBUTION WIDTH 17.5 % (11.5-14.0); SEGMENTED NEUTROPHILS % (AUTO) 80.7 % (42-78); TOTAL CELLS COUNTED % (AUTO) 100 %
[2019-09-04 15:23] LABS: ALBUMIN 2.6 g/dL (3.5-5.0); ALCOHOL < 10 mg/dL (NONE DETECTED); ALKALINE PHOSPHATASE 108 U/L (38-126); ANION GAP 11 (5-19); ASPARTATE AMINO TRANSFERASE 47 U/L (17-59); BILIRUBIN,DIRECT 0.5 mg/dL (0.0-0.4); BILIRUBIN,TOTAL 0.7 mg/dL (0.2-1.3); BLOOD UREA NITROGEN 65 mg/dL (7-20); CALCIUM 10.7 mg/dL (8.4-10.2); CARBON DIOXIDE 26 mmol/L (22-30); CHLORIDE 100 mmol/L (98-107); POTASSIUM 3.8 mmol/L (3.6-5.0); TOTAL PROTEIN 5.3 g/dL (6.3-8.2)
[2019-09-04 15:26] LABS: GLUCOSE 68 mg/dL (75-110)
[2019-09-04] MEDS ORDERED: DEXTROSE 50%-WATER 25 GM/50 ML DISP.SYRIN IV ONE (15:31)
[2019-09-04 16:05] LABS: URINE AMPHETAMINES SCREEN NEGATIVE; URINE BARBITURATES SCREEN NEGATIVE; URINE BENZODIAZEPINES SCREEN NEGATIVE; URINE COCAINE SCREEN NEGATIVE; URINE MARIJUANA (THC) SCREEN NEGATIVE; URINE METHADONE SCREEN NEGATIVE; URINE PHENCYCLIDINE SCREEN NEGATIVE
[2019-09-04 16:06] LABS: APPEARANCE,URINE CLEAR; BILIRUBIN,URINE NEGATIVE (NEGATIVE); COLOR,URINE AMBER; GLUCOSE, URINE NEGATIVE (NEGATIVE); KETONES,URINE NEGATIVE (NEGATIVE); LEUKOCYTE ESTERASE,URINE NEGATIVE (NEGATIVE); NITRITE,URINE NEGATIVE (NEGATIVE); PROTEIN,URINE NEGATIVE (NEGATIVE); URINE SPECIFIC GRAVITY 1.013; UROBILINOGEN,URINE NEGATIVE mg/dL (<2.0)
--- NOTE | 2019-09-04 17:14 | PDOC H&P ---
History of Present Illness Admission Date/PCP: 09/04/19 16:53 ELOISA MARTINES MD Patient complains of: diarrhea History of Present Illness: QAMAR BOWEN is a 84 year old male with a past medical history of CAD with prior PCI and stenting, history of lumbar surgery, history of prostate cancer with prior radiation, history of left leg DVT and history of throat cancer who presented with diarrhea and poor oral intake. Patient sweats has left ER. Upon encounter, he appears comfortable. He appears a little confused but is oriented to person and place. He is able to tell me that he has been having a lot of loose to watery stools over the past few days. He is unable to tell me the frequency and duration of the diarrhea. He does he has been having poor oral intake. He denies vomiting. Denies abdominal pain, chest pain or shortness of breath. In the ER, he was noted to be in acute renal failure. Patient recently completed antibiotics for a urinary tract infection. He does appear very dry and has parched lips and very dry oral mucosa. Past Medical History Cardiac Medical History: Reports: Atrial Fibrillation, DVT, Myocardial Infarction - didn't know it, Hypertension Pulmonary Medical History: Denies: Asthma, Chronic Obstructive Pulmonary Disease (COPD), Sleep Apnea Neurological Medical History: Denies: Seizures GI Medical History: Reports: Gastroesophageal Reflux Disease Denies: Hepatitis, Hiatal Hernia Musculoskeltal Medical History: Reports: Arthritis Hematology: Denies: Anemia, Sickle Cell Disease Past Surgical History Past Surgical History: Reports: Appendectomy, Cardiac Catheterization - stent x2, Coronary Stent, Orthopedic Surgery - rt carpal tunnel, lumbar laminectomy decompression, Pacemaker - medtronic, Other - Resection of throat cancer Social History Lives with: Family Smoking Status: Former Smoker Frequency of Alcohol Use: None Hx Recreational Drug Use: No Drugs: None Family History Family History: Reviewed & Not Pertinent Parental Family History Reviewed: Yes - No premature CAD Children Family History Reviewed: No Sibling(s) Family History Reviewed.: No Medication/Allergy Home Medications: Amiodarone HCl [Amiodarone HCl 400 mg Tablet] 200 mg PO DAILY 07/16/19 Gabapentin [Neurontin 100 mg Capsule] 100 mg PO Q8 07/16/19 Hydrochlorothiazide [Hydrodiuril 25 mg Tablet] 25 mg PO DAILY 07/16/19 Metoprolol Succinate [Toprol Xl 50 mg Tab.sr] 50 mg PO DAILY 07/16/19 Omeprazole 40 mg PO BIDACBS 07/16/19 Simvastatin [Zocor 40 mg Tablet] 40 mg PO QHS tablet 07/18/19 Allopurinol [Zyloprim 100 mg Tablet] 100 mg PO DAILY 09/04/19 Apixaban [Eliquis 5 mg Tablet] 5 mg PO BID 09/04/19 Colchicine [Colchicine 0.6 mg Tablet] 0.6 mg PO DAILYP PRN 09/04/19 Nifedipine [Nifedipine ER] 60 mg PO DAILY 09/04/19 Allergies/Adverse Reactions: No Known Allergies Allergy (Verified 08/19/19 10:43) Review of Systems All systems: reviewed and no additional remarkable complaints except as stated - As mentioned in HPI Physical Exam Vital Signs: Temp Pulse Resp BP Pulse Ox 99.2 F 17 106/51 L 95 09/04/19 14:25 09/04/19 16:01 09/04/19 16:01 09/04/19 16:01 Intake & Output 09/03/19 09/04/19 09/05/19 06:59 06:59 06:59 Intake Total 1050 Balance 1050 General appearance: PRESENT: no acute distress, well-developed, well-nourished Head exam: PRESENT: atraumatic, normocephalic Eye exam: PRESENT: conjunctiva pink, EOMI, PERRLA. ABSENT: scleral icterus Ear exam: PRESENT: normal external ear exam Mouth exam: PRESENT: dry mucosa, tongue midline Neck exam: ABSENT: carotid bruit, JVD, lymphadenopathy, thyromegaly Respiratory exam: PRESENT: clear to auscultation katharina. ABSENT: rales, rhonchi, wheezes Cardiovascular exam: PRESENT: RRR. ABSENT: diastolic murmur, rubs, systolic murmur Pulses: PRESENT: normal dorsalis pedis pul GI/Abdominal exam: PRESENT: normal bowel sounds, soft. ABSENT: distended, guarding, mass, organolmegaly, rebound, tenderness Rectal exam: PRESENT: deferred Extremities exam: PRESENT: full ROM. ABSENT: calf tenderness, clubbing, pedal edema Neurological exam: PRESENT: alert, awake, oriented to person, oriented to place, CN II-XII grossly intact. ABSENT: motor sensory deficit Results Laboratory Results: 09/04/19 14:20 09/04/19 14:20 09/04/19 09/04/19 09/04/19 14:20 14:20 14:55 WBC 9.0 RBC 3.24 L Hgb 10.7 L Hct 31.6 L MCV 98 H MCH 32.9 MCHC 33.7 RDW 17.5 H Plt Count 229 Seg Neutrophils % 80.7 H Sodium 136.8 L Potassium 3.8 Chloride 100 Carbon Dioxide 26 Anion Gap 11 BUN 65 H Creatinine 3.70 H Est GFR ( Amer) 19 L Glucose 68 L Lactic Acid 1.8 Calcium 10.7 H Magnesium 2.1 Total Bilirubin 0.7 AST 47 Alkaline Phosphatase 108 Total Protein 5.3 L Albumin 2.6 L Urine Color Urine Appearance Urine pH Ur Specific Mayflower Urine Protein Urine Glucose (UA) Urine Ketones Urine Blood Urine Nitrite Ur Leukocyte Esterase Urine WBC (Auto) Urine RBC (Auto) 09/04/19 15:40 WBC RBC Hgb Hct MCV MCH MCHC RDW Plt Count Seg Neutrophils % Sodium Potassium Chloride Carbon Dioxide Anion Gap BUN Creatinine Est GFR ( Amer) Glucose Lactic Acid Calcium Magnesium Total Bilirubin AST Alkaline Phosphatase Total Protein Albumin Urine Color LUIS Urine Appearance CLEAR Urine pH 5.0 Ur Specific Mayflower 1.013 Urine Protein NEGATIVE Urine Glucose (UA) NEGATIVE Urine Ketones NEGATIVE Urine Blood NEGATIVE Urine Nitrite NEGATIVE Ur Leukocyte Esterase NEGATIVE Urine WBC (Auto) 1 Urine RBC (Auto) 0 09/04/19 14:20 Troponin I 0.054 Impressions: Chest X-Ray 09/04/19 13:39 IMPRESSION: Stable chronic interstitial changes without definite superimposed cardiopulmonary process. Assessment and Plan - Diagnosis (1) Acute on chronic kidney failure Qualifiers: Acute renal failure type: unspecified Chronic kidney disease stage: uns pecified stage Qualified Code(s): N17.9 - Acute kidney failure, unspecified; N18.9 - Chronic kidney disease, unspecified Is this a current diagnosis for this admission?: Yes Plan: Likely prerenal from volume depletion from diarrhea and poor oral intake. We will continue IV fluids for now repeat BMP tomorrow. (2) Acute diarrhea Is this a current diagnosis for this admission?: Yes Plan: We will check for C. difficile. Patient completed antibiotics recently for a urinary tract infection. IV fluids as mentioned. (3) Dehydration Is this a current diagnosis for this admission?: Yes Plan: IV fluids as mentioned. - Time Time Spent with patient: 25-34 minutes
--- NOTE | 2019-09-04 18:42 | RADIOLOGY REPORT (SQ) ---
EXAM DESCRIPTION: CT ABD/PELVIS NO ORAL OR IV COMPLETED DATE/TIME: 09/04/2019 5:30 pm REASON FOR STUDY: acute renal failure, hx of prostate CA COMPARISON: 07/17/2019 TECHNIQUE: CT scan of the abdomen and pelvis performed without intravenous or oral contrast. Images reviewed with lung, soft tissue, and bone windows. Reconstructed coronal and sagittal MPR images revi ewed. All images stored on PACS. All CT scanners at this facility use dose modulation, iterative reconstruction, and/or weight based d osing when appropriate to reduce radiation dose to as low as reasonably achievable (ALARA). [facility]: Dose Right [facility]: CareDose [facility]: Dose Right [facility]: Teradose 4D [facility]: [employer] RADIATION DOSE: CT Rad equipment meets quality standard of care and radiation dose reduction techniq ues were employed. CTDIvol: 9.5 mGy. DLP: 531 mGy-cm.mGy. LIMITATIONS: None. FINDINGS: LOWER CHEST: Small bilateral pleural effusions and basilar subsegmental atelectasis. NON-CONTRASTED LIVER, SPLEEN, ADRENALS: Evaluation limited by lack of IV contrast. Scattered parench ymal cysts. PANCREAS: No masses. No peripancreatic inflammatory changes. GALLBLADDER: No calcified stones. No inflammatory changes to suggest cholecystitis. RIGHT KIDNEY AND URETER: Similar small cysts identified. No solid masses. No calcified stones. New h ydronephrosis - hydroureter. LEFT KIDNEY AND URETER: Similar small cysts identified. No solid masses. No calcified stones. New hyd ronephrosis - hydroureter.. AORTA AND RETROPERITONEUM: No aneurysm. No retroperitoneal masses or adenopathy. BOWEL AND PERITONEAL CAVITY: No obvious masses or inflammatory changes. No free fluid. APPENDIX: Not visualized. PELVIS, BLADDER, AND ABDOMINAL WALL: Surgical changes consistent with prostatectomy. Mild pelvic fr ee fluid. Elise catheter decompresses the bladder. BONES: No acute findings. Prior posterior lumbar decompression OTHER: No other significant finding. IMPRESSION: New bilateral hydronephrosis - hydroureter, left greater than right. Surgical changes consistent with prostatectomy. Mild pelvic free fluid. Elise catheter decompresse s the bladder.Small bilateral pleural effusions and basilar subsegmental atelectasis. TECHNICAL DOCUMENTATION: JOB ID: [id number] Quality ID # [id number]: Final reports with documentation of one or more dose reduction techniques (e.g., Au tomated exposure control, adjustment of the mA and/or kV according to patient size, use of iterative reconstruction technique) 2010 [employer]- All Rights Reserved Reading location - IP/workstation name: [email or web address]
--- NOTE | 2019-09-04 19:17 | EKG REPORT ---
SEVERITY:- ABNORMAL ECG - ATRIAL SENSED, VENTRICULAR-PACED RHYTHM : Confirmed by: Jean Marie Hawley MD 04-Sep-2019 19:16:53
[2019-09-04] MEDS ORDERED: ONDANSETRON HCL INJ/PF 4 MG/2 ML SDV IV ONE (20:04)
[2019-09-04] MEDS ORDERED: POTASSI CL 20 MEQ/D5-1/2NS 1L 1,000 ML IV ONE (20:06)
[2019-09-04] MEDS ORDERED: DEXTROSE 50%-WATER 25 GM/50 ML DISP.SYRIN IV PRN ×2 (20:07)
[2019-09-04] MEDS ORDERED: GLUCAGON,HUMAN RECOMB 1 MG INJ IM PRN (20:07)
[2019-09-04] MEDS ORDERED: DEXTROSE 40% GEL 15 GM TUBE PO PRN ×2 (20:07)
[2019-09-04 20:19] LABS: C DIFFICILE GDH POSITIVE (NEGATIVE)
[2019-09-04] MEDS: VANCOMYCIN HCL INJ 500 MG VIAL PO SCH (21:51)
[2019-09-04] MEDS: VANCOMYCIN HCL INJ 500 MG VIAL PR SCH (22:06)
[2019-09-04] MEDS: METRONIDAZOLE 500 MG/NS RTU 500 MG/100 ML RTUPB IV SCH (22:29)
[2019-09-05] MEDS ORDERED: VANCOMYCIN HCL INJ 500 MG VIAL ONE (02:29)
[2019-09-05] MEDS: NORMAL SALINE 1000 ML 1,000 ML IV PRN ×2 (02:29→14:30)
[2019-09-05] MEDS: VANCOMYCIN HCL INJ 500 MG VIAL PO SCH ×4 (02:36→17:20)
[2019-09-05] MEDS: METRONIDAZOLE 500 MG/NS RTU 500 MG/100 ML RTUPB IV SCH ×4 (02:38→21:48)
[2019-09-05] MEDS: HEPARIN SOD (PORCINE) 5,000 UNIT/ML 1 ML VIAL SUBCUT SCH ×2 (03:12→06:16)
[2019-09-05] MEDS: VANCOMYCIN HCL INJ 500 MG VIAL PR SCH ×2 (03:13→08:56)
[2019-09-05 07:23] LABS: ANION GAP 8 (5-19); BLOOD UREA NITROGEN 65 mg/dL (7-20); CALCIUM 10.3 mg/dL (8.4-10.2); CARBON DIOXIDE 24 mmol/L (22-30); CHLORIDE 105 mmol/L (98-107); GLUCOSE 81 mg/dL (75-110); POTASSIUM 3.3 mmol/L (3.6-5.0)
[2019-09-05] MEDS ORDERED: POTASSIUM CHLORIDE 10 MEQ TABLET.ER PO ONE (08:39)
[2019-09-05] MEDS: METOPROLOL SUCCINATE 50 MG TAB.SR.24H PO SCH (09:04)
[2019-09-05] MEDS: AMIODARONE HCL 200 MG TABLET PO SCH (09:05)
[2019-09-05] MEDS: PANTOPRAZOLE SODIUM 40 MG TABLET.DR PO SCH ×2 (09:05→17:19)
[2019-09-05] MEDS ORDERED: AMIODARONE HCL 200 MG PO SCH (10:00)
[2019-09-05] MEDS ORDERED: COLCHICINE 0.6 MG TABLET PO PRN (11:40)
--- NOTE | 2019-09-05 16:42 | PDOC PROGRESS REPORT ---
Subjective Progress Note for:: 09/05/19 Subjective:: QAMAR BOWEN is a 84 year old male with a past medical history of CAD with prior PCI and stenting, history of lumbar surgery, history of prostate cancer with prior radiation, history of left leg DVT and history of throat cancer who presented with diarrhea and poor oral intake. He was found to be in acute renal failure. C. difficile testing came back positive. CT of the abdomen pelvis also showed new bilateral hydronephrosis and hydroureter. No acute event overnight. Upon encounter, he appears more awake and conversant. He is now oriented to person and place. He denies abdominal pain. Still had loose stools overnight. Denies shortness of breath or chest pain. /DPOA in the bedside. She expresses that he has been requiring more attention medical care at home and was hoping he would go to a group home or rehab. Patient however expressed that he does not want to go to a group home or medical facility. Both of them patient expressed that he remains a full code at this time and prefers to receive chest compressions, defibrillation or mechanical ventilation if the need arises. However he verbalizes that he does not want to be on long-term ventilation. also brought up that they are contemplating possibly transitioning to home hospice later after he gets discharged. Reason For Visit: ACUTE RENAL FAILURE,ACUTE DIARRHEA Physical Exam Vital Signs: Temp Pulse Resp BP Pulse Ox 97.6 F 70 19 113/46 L 97 09/05/19 08:00 09/05/19 14:00 09/05/19 08:00 09/05/19 08:00 09/05/19 08:00 Intake & Output 09/04/19 09/05/19 09/06/19 06:59 06:59 06:59 Intake Total 1250 2100 Output Total 1250 Balance 0 2100 Weight 176 lb 9.444 oz General appearance: PRESENT: no acute distress, well-developed, well-nourished Head exam: PRESENT: atraumatic, normocephalic Eye exam: PRESENT: conjunctiva pink, EOMI, PERRLA. ABSENT: scleral icterus Ear exam: PRESENT: normal external ear exam Mouth exam: PRESENT: moist, tongue midline Neck exam: ABSENT: carotid bruit, JVD, lymphadenopathy, thyromegaly Respiratory exam: PRESENT: clear to auscultation katharina. ABSENT: rales, rhonchi, wheezes Cardiovascular exam: PRESENT: RRR. ABSENT: diastolic murmur, rubs, systolic murmur Pulses: PRESENT: normal dorsalis pedis pul GI/Abdominal exam: PRESENT: normal bowel sounds, soft. ABSENT: distended, guarding, mass, organolmegaly, rebound, tenderness Rectal exam: PRESENT: deferred Extremities exam: PRESENT: full ROM. ABSENT: calf tenderness, clubbing, pedal edema Neurological exam: PRESENT: alert, awake, oriented to person, oriented to place, CN II-XII grossly intact. ABSENT: oriented to time, motor sensory deficit Results Laboratory Results: 09/04/19 14:20 09/05/19 13:58 09/04/19 09/05/19 09/05/19 18:03 06:43 13:58 Sodium 137.2 Potassium 3.3 L 3.7 Chloride 105 Carbon Dioxide 24 Anion Gap 8 BUN 65 H Creatinine 3.26 H Est GFR ( Amer) 22 L Glucose 81 Calcium 10.3 H Stool for White Cells FEW H 09/04/19 09/05/19 14:20 06:43 Creatine Kinase 25 L Troponin I 0.054 Impressions: Chest X-Ray 09/04/19 13:39 IMPRESSION: Stable chronic interstitial changes without definite superimposed cardiopulmonary process. Abdomen/Pelvis CT 09/04/19 17:09 IMPRESSION: New bilateral hydronephrosis - hydroureter, left greater than right. Surgical changes consistent with prostatectomy. Mild pelvic free fluid. Elise catheter decompresses the bladder.Small bilateral pleural effusions and basilar subsegmental atelectasis. Assessment and Plan - Diagnosis (1) C. difficile colitis Is this a current diagnosis for this admission?: Yes Plan: Started on p.o. vancomycin and IV Flagyl. Continue IV fluids. (2) Acute metabolic encephalopathy Is this a current diagnosis for this admission?: Yes Plan: Improving. Likely secondary to acute renal failure. (3) Acute on chronic kidney failure Qualifiers: Acute renal failure type: unspecified Chronic kidney disease stage: unspecified stage Qualified Code(s): N17.9 - Acute kidney failure, unspecified; N18.9 - Chronic kidney disease, unspecified Is this a current diagnosis for this admission?: Yes Plan: Likely prerenal from volume depletion from diarrhea and poor oral intake. We will continue IV fluids for now repeat BMP tomorrow. 09/05: Creatinine improving with IV fluids. CT of the abdomen pelvis did reveal new bilateral hydroureter and hydronephrosis. Noted chronic prostatectomy related changes. Will keep Elise catheter for now but he will need outpatient urology appointment. (4) Dehydration Is this a current diagnosis for this admission?: Yes Plan: IV fluids as mentioned. - Time Time Spent with patient: 25-34 minutes
[2019-09-05] MEDS: LACTOBACILLUS ACIDOPHILUS 250 MG TAB PO SCH (17:19)
[2019-09-05] MEDS: APIXABAN 5 MG TABLET PO SCH (17:19)
[2019-09-05] MEDS: NYSTATIN 500000 UNIT/5 ML UDCUP PO SCH (17:19)
[2019-09-05] MEDS: ACETAMINOPHEN 325 MG TABLET PO PRN (18:43)
[2019-09-05] MEDS: SIMVASTATIN 40 MG TABLET PO SCH (21:48)
[2019-09-05] MEDS: GABAPENTIN 100 MG CAPSULE PO SCH (21:48)
[2019-09-06] MEDS: NYSTATIN 500000 UNIT/5 ML UDCUP PO SCH ×4 (00:29→18:02)
[2019-09-06] MEDS: VANCOMYCIN HCL INJ 500 MG VIAL PO SCH ×4 (00:29→18:03)
[2019-09-06] MEDS: NORMAL SALINE 1000 ML 1,000 ML IV PRN ×3 (01:43→21:21)
[2019-09-06] MEDS: METRONIDAZOLE 500 MG/NS RTU 500 MG/100 ML RTUPB IV SCH ×4 (02:00→21:10)
[2019-09-06] MEDS: GABAPENTIN 100 MG CAPSULE PO SCH ×3 (06:18→21:14)
[2019-09-06 08:51] LABS: ANION GAP 7 (5-19); BLOOD UREA NITROGEN 53 mg/dL (7-20); CALCIUM 10.3 mg/dL (8.4-10.2); CARBON DIOXIDE 23 mmol/L (22-30); CHLORIDE 110 mmol/L (98-107); GLUCOSE 76 mg/dL (75-110)
[2019-09-06] MEDS: PANTOPRAZOLE SODIUM 40 MG TABLET.DR PO SCH ×2 (10:30→18:03)
[2019-09-06] MEDS: HYDROCHLOROTHIAZIDE 25 MG TABLET PO SCH (11:15)
[2019-09-06] MEDS: APIXABAN 5 MG TABLET PO SCH ×2 (11:15→18:02)
[2019-09-06] MEDS: ALLOPURINOL 100 MG TABLET PO SCH (11:16)
[2019-09-06] MEDS: LACTOBACILLUS ACIDOPHILUS 250 MG TAB PO SCH ×2 (11:16→18:01)
[2019-09-06] MEDS: METOPROLOL SUCCINATE 50 MG TAB.SR.24H PO SCH (11:16)
[2019-09-06] MEDS: AMIODARONE HCL 200 MG TABLET PO SCH (11:17)
--- NOTE | 2019-09-06 16:53 | PDOC PROGRESS REPORT ---
Subjective Progress Note for:: 09/06/19 Subjective:: QAMAR BOWEN is a 84 year old male with a past medical history of CAD with prior PCI and stenting, history of lumbar surgery, history of prostate cancer with prior radiation, history of left leg DVT and history of throat cancer who presented with diarrhea and poor oral intake. He was found to be in acute renal failure. C. difficile testing came back positive. CT of the abdomen pelvis also showed new bilateral hydronephrosis and hydroureter. 09/05: Upon encounter, he appears more awake and conversant. He is now oriented to person and place. He denies abdominal pain. Still had loose stools overnight. Denies shortness of breath or chest pain. /DPOA in the bedside. She expresses that he has been requiring more attention medical care at home and was hoping he would go to a longterm or rehab. Patient however expressed that he does not want to go to a longterm or medical facility. Both of them patient expressed that he remains a full code at this time and prefers to receive chest compressions, defibrillation or mechanical ventilation if the need arises. However he verbalizes that he does not want to be on long- term ventilation. also brought up that they are contemplating possibly transitioning to home hospice later after he gets discharged. 09/06: He had 4 loose bowel movements overnight but they had slightly more particl es on them and are not as watery. He is much more coherent and oriented today. He is now able to person, place and is able to tell me that it is September 2019. He denies abdominal pain. No chest pain or shortness of breath. Reason For Visit: ACUTE RENAL FAILURE,ACUTE DIARRHEA Physical Exam Vital Signs: Temp Pulse Resp BP Pulse Ox 97.7 F 69 18 124/70 98 09/06/19 08:59 09/06/19 08:59 09/06/19 08:59 09/06/19 08:59 09/06/19 08:59 Intake & Output 09/05/19 09/06/19 09/07/19 06:59 06:59 06:59 Intake Total 1250 3518 1100 Output Total 1250 2200 200 Balance 0 1318 900 Weight 176 lb 9.444 oz 171 lb 1.259 oz General appearance: PRESENT: no acute distress, well-developed, well-nourished Head exam: PRESENT: atraumatic, normocephalic Eye exam: PRESENT: conjunctiva pink, EOMI, PERRLA. ABSENT: scleral icterus Ear exam: PRESENT: normal external ear exam Mouth exam: PRESENT: moist, tongue midline Neck exam: ABSENT: carotid bruit, JVD, lymphadenopathy, thyromegaly Respiratory exam: PRESENT: clear to auscultation katharina. ABSENT: rales, rhonchi, wheezes Cardiovascular exam: PRESENT: RRR. ABSENT: diastolic murmur, rubs, systolic murmur Pulses: PRESENT: normal dorsalis pedis pul GI/Abdominal exam: PRESENT: normal bowel sounds, soft. ABSENT: distended, guarding, mass, organolmegaly, rebound, tenderness Rectal exam: PRESENT: deferred Extremities exam: PRESENT: full ROM. ABSENT: calf tenderness, clubbing, pedal edema Neurological exam: PRESENT: alert, awake, oriented to person, oriented to place, oriented to time, CN II-XII grossly intact. ABSENT: motor sensory deficit Results Laboratory Results: 09/04/19 14:20 09/06/19 07:55 09/06/19 07:55 Sodium 139.7 Potassium 4.0 Chloride 110 H Carbon Dioxide 23 Anion Gap 7 BUN 53 H Creatinine 2.92 H Est GFR ( Amer) 25 L Glucose 76 Calcium 10.3 H 09/04/19 15:40 Catheterized Urine Urine Culture - Final NO GROWTH 2 DAYS 09/04/19 09/05/19 14:20 06:43 Creatine Kinase 25 L Troponin I 0.054 Impressions: Chest X-Ray 09/04/19 13:39 IMPRESSION: Stable chronic interstitial changes without definite superimposed cardiopulmonary process. Abdomen/Pelvis CT 09/04/19 17:09 IMPRESSION: New bilateral hydronephrosis - hydroureter, left greater than right. Surgical changes consistent with prostatectomy. Mild pelvic free fluid. Elise catheter decompresses the bladder.Small bilateral pleural effusions and basilar subsegmental atelectasis. Assessment and Plan - Diagnosis (1) C. difficile colitis Is this a current diagnosis for this admission?: Yes Plan: 09/05: Started on p.o. vancomycin and IV Flagyl. Continue IV fluids. 09/06: Slightly improving. (2) Acute metabolic encephalopathy Is this a current diagnosis for this admission?: Yes Plan: Improving. Likely secondary to acute renal failure. 1/2: Resolving. Mentation significantly improved. (3) Acute on chronic kidney failure Qualifiers: Acute renal failure type: unspecified Chronic kidney disease stage: unspecified stage Qualified Code(s): N17.9 - Acute kidney failure, unspecified; N18.9 - Chronic kidney disease, unspecified Is this a current diagnosis for this admission?: Yes Plan: Likely prerenal from volume depletion from diarrhea and poor oral intake. We will continue IV fluids for now repeat BMP tomorrow. 09/05: Creatinine improving with IV fluids. CT of the abdomen pelvis did reveal new bilateral hydroureter and hydronephrosis. Noted chronic prostatectomy rel ated changes. Will keep Elise catheter for now but he will need outpatient urology appointment. 09/06: Creatinine continue to improve with hydration. (4) Dehydration Is this a current diagnosis for this admission?: Yes Plan: IV fluids as mentioned. - Time Time Spent with patient: 25-34 minutes
[2019-09-06] MEDS: TAMSULOSIN HCL 0.4 MG CAP.SR.24H PO SCH (18:02)
[2019-09-06] MEDS: SIMVASTATIN 40 MG TABLET PO SCH (21:14)
[2019-09-07] MEDS: NYSTATIN 500000 UNIT/5 ML UDCUP PO SCH ×4 (00:53→18:20)
[2019-09-07] MEDS: VANCOMYCIN HCL INJ 500 MG VIAL PO SCH ×4 (00:54→18:20)
[2019-09-07] MEDS: METRONIDAZOLE 500 MG/NS RTU 500 MG/100 ML RTUPB IV SCH ×4 (02:50→22:50)
[2019-09-07] MEDS: GABAPENTIN 100 MG CAPSULE PO SCH ×3 (05:33→22:50)
[2019-09-07] MEDS: ACETAMINOPHEN 325 MG TABLET PO PRN (09:19)
[2019-09-07] MEDS: ALLOPURINOL 100 MG TABLET PO SCH (09:19)
[2019-09-07] MEDS: PANTOPRAZOLE SODIUM 40 MG TABLET.DR PO SCH ×2 (09:19→15:00)
[2019-09-07] MEDS: APIXABAN 5 MG TABLET PO SCH ×2 (09:19→18:21)
[2019-09-07] MEDS: HYDROCHLOROTHIAZIDE 25 MG TABLET PO SCH (09:19)
[2019-09-07] MEDS: AMIODARONE HCL 200 MG TABLET PO SCH (09:19)
[2019-09-07] MEDS: NORMAL SALINE 1000 ML 1,000 ML IV PRN (09:19)
[2019-09-07] MEDS: METOPROLOL SUCCINATE 50 MG TAB.SR.24H PO SCH (09:19)
[2019-09-07] MEDS: LACTOBACILLUS ACIDOPHILUS 250 MG TAB PO SCH ×2 (09:19→18:21)
[2019-09-07 11:18] LABS: ABSOLUTE LYMPHOCYTES (AUTO) 1.1 10^3/uL (0.5-4.7); ABSOLUTE MONOCYTES (AUTO) 0.2 10^3/uL (0.1-1.4); ABSOLUTE NEUT (AUTO) 3.8 10^3/uL (1.7-8.2); BASOPHILS % (AUTO) 0.2 % (0-2); EOSINOPHILS % (AUTO) 0.8 % (0-6); HEMATOCRIT 28.7 % (37.9-51.0); HEMOGLOBIN 9.7 g/dL (13.5-17.0); LYMPHOCYTES % (AUTO) 21.2 % (13-45); MEAN CORPUSCULAR HGB CONC 33.8 g/dL (32.0-36.0); MEAN CORPUSCULAR VOLUME 98 fl (80-97); MONOCYTES % (AUTO) 4.2 % (3-13); PLATELET COUNT 145 10^3/uL (150-450); RED BLOOD COUNT 2.94 10^6/uL (4.35-5.55); RED CELL DISTRIBUTION WIDTH 17.3 % (11.5-14.0); SEGMENTED NEUTROPHILS % (AUTO) 73.6 % (42-78); TOTAL CELLS COUNTED % (AUTO) 100 %; WHITE BLOOD COUNT 5.2 10^3/uL (4.0-10.5)
[2019-09-07 11:46] LABS: ANION GAP 7 (5-19); BLOOD UREA NITROGEN 43 mg/dL (7-20); CALCIUM 10.4 mg/dL (8.4-10.2); CARBON DIOXIDE 22 mmol/L (22-30); CHLORIDE 110 mmol/L (98-107); GLUCOSE 110 mg/dL (75-110)
--- NOTE | 2019-09-07 14:52 | RADIOLOGY REPORT (SQ) ---
EXAM DESCRIPTION: VENOUS UNILATERAL LOWER COMPLETED DATE/TIME: 09/07/2019 2:36 pm REASON FOR STUDY: left leg swelling COMPARISON: None. TECHNIQUE: Dynamic and static smith scale and color images acquired of the left leg venous system. Se lected spectral images acquired with additional compression and augmentation maneuvers. The contralat eral common femoral vein and saphenofemoral junction were also imaged. Images stored on PACS. LIMITATIONS: None. FINDINGS: LEFT COMMON FEMORAL: Partially occluded by hypoechoic acute clot which extends into the saphenous femoral junction. FEMORAL: Completely occluded by hypoechoic acute clot POPLITEAL: No visualized echogenic material on smith scale. No defects on color images. CALF VESSELS: Normal compression, augmentation. No visualized echogenic material on smith scale. No de fects on color images. GSV: Small amount of hypoechoic clot extends into the greater saphenous vein from the common femoral vein. Remainder of the greater saphenous vein is free of thrombus ANY DEEP VENOUS INSUFFICIENCY: Not evaluated. ANY EVIDENCE OF POPLITEAL CYST: No. OTHER: No other significant finding. RIGHT COMMON FEMORAL VEIN AND SAPHENOFEMORAL JUNCTION: Normal phasicity, compression and augmentation. No visualized echogenic material on smith scale. No de fects on color images. IMPRESSION: Acute left lower extremity deep venous thrombosis occludes the superficial femoral vein and extends into the common femoral veins partially occlusive. Small amount of thrombus extends into the greater saphenous vein the saphenous femoral junction COMMENT: Pertinent findings on the imaging study reported as a CRITICAL RESULT to GABRIELA Montaño at14:26 on 09/07/2019. Category of Critical Result: Acute DVT TECHNICAL DOCUMENTATION: JOB ID: [id number] [employer]- All Rights Reserved Reading location - IP/workstation name: [email or web address]
--- NOTE | 2019-09-07 17:30 | PDOC PROGRESS REPORT ---
Subjective Progress Note for:: 09/07/19 Subjective:: QAMAR BOWEN is a 84 year old male with a past medical history of CAD with prior PCI and stenting, history of lumbar surgery, history of prostate cancer with prior radiation, history of left leg DVT and history of throat cancer who presented with diarrhea and poor oral intake. He was found to be in acute renal failure. C. difficile testing came back positive. CT of the abdomen pelvis also showed new bilateral hydronephrosis and hydroureter. 09/05: Upon encounter, he appears more awake and conversant. He is now oriented to person and place. He denies abdominal pain. Still had loose stools overnight. Denies shortness of breath or chest pain. /DPOA in the bedside. She expresses that he has been requiring more attention medical care at home and was hoping he would go to a jail or rehab. Patient however expressed that he does not want to go to a jail or medical facility. Both of them patient expressed that he remains a full code at this time and prefers to receive chest compressions, defibrillation or mechanical ventilation if the need arises. However he verbalizes that he does not want to be on long- term ventilation. also brought up that they are contemplating possibly transitioning to home hospice later after he gets discharged. 09/06: He had 4 loose bowel movements overnight but they had slightly more particl es on them and are not as watery. He is much more coherent and oriented today. He is now able to person, place and is able to tell me that it is September 2019. He denies abdominal pain. No chest pain or shortness of breath. 09/07: No acute event overnight. No recurrence of diarrhea so far. He denies abdominal pain. No abdominal distention. He does complain of increasing left leg pain. His does state that his left leg has pain more swollen in the past 2 days compared to his previous baseline. He says he has been compliant with his Eliquis for his recently diagnosed left leg DVT. Left leg is grossly swollen. There is a small area of purplish blister on the left plantar aspect which the says has been there for a few days. He has full/good palpable dorsalis pedis pulses. Repeat venous Doppler was pursued and results were discussed with radiologist. He has new extensive acute DVT on the left lower extremity. Discussed with [facility] to see if he would benefit or would be a candidate for thrombectomy. Discussed case in length with Dr. Julian, vascular surgeon party plan demonstrator who has reviewed the Doppler images. He does not recommend thrombectomy at this time and recommend switching patient's Eliquis to Coumadin with heparin bridge. Recommend wrapping patient's left leg with Timur bandage and leg elevation. Recommend continuing to monitor for signs of Phlegmasia at this time. Results and recommendations with patient and at the bedside. He does not have melena or gross hematochezia but does have a positive FOBT. Discussed risk and benefits anticoagulation. Patient and verbalized understanding. Patient is competent this time and is well oriented. He verbalizes good understanding of the disease process but is hesitant about being continued on anticoagulation. He requests to think about anticoagulation tonight and prefers not to be started on heparin or Coumadin at this time until he made his final decision. Discussed the risk of disease progression due to untreated DVT and he verbalizes understanding. Reason For Visit: ACUTE RENAL FAILURE,ACUTE DIARRHEA Physical Exam Vital Signs: Temp Pulse Resp BP Pulse Ox 98.7 F 71 16 105/42 L 91 L 09/07/19 12:00 09/07/19 12:00 09/07/19 12:00 09/07/19 12:00 09/07/19 12:00 Intake & Output 09/06/19 09/07/19 09/08/19 06:59 06:59 06:59 Intake Total 3518 3878 100 Output Total 2200 1050 Balance 1318 2828 100 Weight 171 lb 1.259 oz 182 lb 1.629 oz General appearance: PRESENT: no acute distress, well-developed, well-nourished Head exam: PRESENT: atraumatic, normocephalic Eye exam: PRESENT: conjunctiva pink, EOMI, PERRLA. ABSENT: scleral icterus Ear exam: PRESENT: normal external ear exam Mouth exam: PRESENT: moist, tongue midline Neck exam: ABSENT: carotid bruit, JVD, lymphadenopathy, thyromegaly Respiratory exam: PRESENT: clear to auscultation katharina. ABSENT: rales, rhonchi, wheezes Cardiovascular exam: PRESENT: RRR. ABSENT: diastolic murmur, rubs, systolic murmur Pulses: PRESENT: normal dorsalis pedis pul GI/Abdominal exam: PRESENT: normal bowel sounds, soft. ABSENT: distended, guarding, mass, organolmegaly, rebound, tenderness Rectal exam: PRESENT: deferred Extremities exam: PRESENT: other - Left lower extremity is grossly swollen with good palpable pulses Neurological exam: PRESENT: alert, awake, oriented to person, oriented to place, oriented to time, oriented to situation, CN II-XII grossly intact. ABSENT: motor sensory deficit Results Laboratory Results: 09/07/19 10:53 09/07/19 10:53 09/07/19 09/07/19 09/07/19 06:15 10:53 10:53 WBC 5.2 RBC 2.94 L Hgb 9.7 L Hct 28.7 L MCV 98 H MCH 33.0 MCHC 33.8 RDW 17.3 H Plt Count 145 L Seg Neutrophils % 73.6 Sodium Cancelled 138.5 Potassium Cancelled 4.0 Chloride Cancelled 110 H Carbon Dioxide Cancelled 22 Anion Gap Cancelled 7 BUN Cancelled 43 H Creatinine Cancelled 2.47 H Est GFR ( Amer) Cancelled 30 L Est GFR (Non-Af Amer) Cancelled Glucose Cancelled 110 Calcium Cancelled 10.4 H 09/04/19 18:03 Stool - Stool - Final 09/04/19 18:03 Stool - Stool Stool Culture - Final Yeast, Not Heather Albicans 09/04/19 15:40 Catheterized Urine Urine Culture - Final NO GROWTH 2 DAYS 09/04/19 09/05/19 14:20 06:43 Creatine Kinase 25 L Troponin I 0.054 Impressions: Chest X-Ray 09/04/19 13:39 IMPRESSION: Stable chronic interstitial changes without definite superimposed cardiopulmonary process. Abdomen/Pelvis CT 09/04/19 17:09 IMPRESSION: New bilateral hydronephrosis - hydroureter, left greater than right. Surgical changes consistent with prostatectomy. Mild pelvic free fluid. Elise catheter decompresses the bladder.Small bilateral pleural effusions and basilar subsegmental atelectasis. Assessment and Plan - Diagnosis (1) Acute DVT (deep venous thrombosis) Qualifiers: DVT location: lower extremity Laterality: left Is this a current diagnosis for this admission?: Yes Plan: Left leg is grossly swollen. There is a small area of purplish blister on the left plantar aspect which the says has been there for a few days. He has full/good palpable dorsalis pedis pulses. Repeat venous Doppler was pursued and results were discussed with radiologist. He has new extensive acute DVT on the left lower extremity. Discussed with [facility] vascular surgery to see if he would benefit or would be a candidate for thrombectomy. Discussed case in length with Dr. Julian, vascular surgeon party plan demonstrator who has reviewed the Doppler images. He does not recommend thrombectomy at this time and recommend switching patient's Eliquis to Coumadin with heparin bridge. Recommend wrapping patient's left leg with Timur bandage and leg elevation. Recommend continuing to monitor for signs of Phlegmasia at this time. Results and recommendations with patient and at the bedside. He does not have melena or gross hematochezia but does have a positive FOBT. Discussed risk and benefits anticoagulation. Patient and verbalized understanding. Patient is competent this time and is well oriented. He verbalizes good understanding of the disease process but is hesitant about being continued on anticoagulation. He requests to think about anticoagulation tonight and prefers not to be started on heparin or Coumadin at this time until he made his final decision. Discussed the risk of disease progression due to untreated DVT and he verbalizes understanding. (2) C. difficile colitis Is this a current diagnosis for this admission?: Yes Plan: 09/05: Started on p.o. vancomycin and IV Flagyl. Continue IV fluids. 12: Slightly improving. 3: Improving. (3) Acute metabolic encephalopathy Is this a current diagnosis for this admission?: Yes Plan: Improving. Likely secondary to acute renal failure. 2: Resolving. Mentation significantly improved. 09/07: Resolved. (4) Acute on chronic kidney failure Qualifiers: Acute renal failure type: unspecified Chronic kidney disease stage: unspecified stage Qualified Code(s): N17.9 - Acute kidney failure, unspecified; N18.9 - Chronic kidney disease, unspecified Is this a current diagnosis for this admission?: Yes Plan: Likely prerenal from volume depletion from diarrhea and poor oral intake. We will continue IV fluids for now repeat BMP tomorrow. 09/05: Creatinine improving with IV fluids. CT of the abdomen pelvis did reveal new bilateral hydroureter and hydronephrosis. Noted chronic prostatectomy related changes. Will keep Elise catheter for now but he will need outpatient urology appointment. 2: Creatinine continue to improve with hydration. 09/07: Creatinine continues to trend down towards baseline. (5) Dehydration Is this a current diagnosis for this admission?: Yes Plan: Improved. IV fluids as mentioned. - Time Time Spent with patient: 25-34 minutes
[2019-09-07] MEDS: TAMSULOSIN HCL 0.4 MG CAP.SR.24H PO SCH (18:20)
[2019-09-07] MEDS ORDERED: HEPARIN SOD (PORCINE) 1,000 UNIT/ML 10 ML VIAL IV ONE (19:00)
[2019-09-07 20:04] LABS: ABSOLUTE LYMPHOCYTES (AUTO) 1.1 10^3/uL (0.5-4.7); ABSOLUTE MONOCYTES (AUTO) 0.2 10^3/uL (0.1-1.4); ABSOLUTE NEUT (AUTO) 3.3 10^3/uL (1.7-8.2); BASOPHILS % (AUTO) 0.1 % (0-2); EOSINOPHILS % (AUTO) 1.1 % (0-6); HEMATOCRIT 27.5 % (37.9-51.0); HEMOGLOBIN 9.1 g/dL (13.5-17.0); LYMPHOCYTES % (AUTO) 23.7 % (13-45); MEAN CORPUSCULAR HEMOGLOBIN 32.1 pg (27.0-33.4); MEAN CORPUSCULAR VOLUME 97 fl (80-97); PLATELET COUNT 132 10^3/uL (150-450); RED BLOOD COUNT 2.82 10^6/uL (4.35-5.55); RED CELL DISTRIBUTION WIDTH 17.6 % (11.5-14.0); SEGMENTED NEUTROPHILS % (AUTO) 70.1 % (42-78); TOTAL CELLS COUNTED % (AUTO) 100 %; WHITE BLOOD COUNT 4.7 10^3/uL (4.0-10.5)
[2019-09-07 20:11] LABS: INTERNATIONAL RATION (INR) 2.17; PROTHROMBIN TIME 24.5 SEC (11.4-15.4)
[2019-09-07 20:12] LABS: PARTIAL THROMBOPLASTIN TIME 43.8 SEC (23.5-35.8)
[2019-09-07] MEDS: SIMVASTATIN 40 MG TABLET PO SCH (22:50)
[2019-09-08] MEDS: VANCOMYCIN HCL INJ 500 MG VIAL PO SCH ×5 (02:24→23:27)
[2019-09-08] MEDS: NYSTATIN 500000 UNIT/5 ML UDCUP PO SCH ×5 (02:24→23:27)
[2019-09-08] MEDS: METRONIDAZOLE 500 MG/NS RTU 500 MG/100 ML RTUPB IV SCH ×4 (03:54→21:20)
[2019-09-08] MEDS: HEPARIN SODIUM,PORCINE/D5W 25,000 UNIT/250 ML RTUINJ IV PRN ×2 (05:28→14:10)
[2019-09-08] MEDS: GABAPENTIN 100 MG CAPSULE PO SCH ×3 (05:33→21:20)
[2019-09-08 05:59] LABS: ANION GAP 6 (5-19); BLOOD UREA NITROGEN 39 mg/dL (7-20); CALCIUM 10.4 mg/dL (8.4-10.2); CARBON DIOXIDE 22 mmol/L (22-30); CHLORIDE 109 mmol/L (98-107); GLUCOSE 92 mg/dL (75-110); POTASSIUM 3.3 mmol/L (3.6-5.0)
[2019-09-08] MEDS: NORMAL SALINE 1000 ML 1,000 ML IV PRN ×2 (06:02→21:20)
[2019-09-08 08:12] LABS: APPEARANCE,URINE CLEAR; BILIRUBIN,URINE NEGATIVE (NEGATIVE); COLOR,URINE YELLOW; GLUCOSE, URINE NEGATIVE (NEGATIVE); KETONES,URINE NEGATIVE (NEGATIVE); LEUKOCYTE ESTERASE,URINE SMALL (NEGATIVE); NITRITE,URINE NEGATIVE (NEGATIVE); PROTEIN,URINE NEGATIVE (NEGATIVE); URINE SPECIFIC GRAVITY 1.012; UROBILINOGEN,URINE NEGATIVE mg/dL (<2.0)
[2019-09-08] MEDS ORDERED: POTASSIUM CHLORIDE 10 MEQ TABLET.ER PO ONE (09:30)
[2019-09-08] MEDS: PANTOPRAZOLE SODIUM 40 MG TABLET.DR PO SCH ×2 (09:59→18:13)
[2019-09-08] MEDS: LACTOBACILLUS ACIDOPHILUS 250 MG TAB PO SCH ×2 (09:59→18:13)
[2019-09-08] MEDS: AMIODARONE HCL 200 MG TABLET PO SCH (09:59)
[2019-09-08] MEDS: METOPROLOL SUCCINATE 50 MG TAB.SR.24H PO SCH (09:59)
[2019-09-08] MEDS: ALLOPURINOL 100 MG TABLET PO SCH (09:59)
[2019-09-08] MEDS: MAGNESIUM SULFATE/D5W 1 GM/100 ML RTUPB IV SCH ×2 (11:44→12:50)
--- NOTE | 2019-09-08 14:00 | EKG REPORT ---
SEVERITY:- ABNORMAL ECG - A-V DUAL-PACED COMPLEXES W/ SOME INHIBITION : Confirmed by: Jean Marie Hawley MD 08-Sep-2019 13:58:59
[2019-09-08 15:43] LABS: POTASSIUM 3.5 mmol/L (3.6-5.0)
--- NOTE | 2019-09-08 16:50 | PDOC PROGRESS REPORT ---
Subjective Progress Note for:: 09/08/19 Subjective:: QAMAR BOWEN is a 84 year old male with a past medical history of CAD with prior PCI and stenting, history of lumbar surgery, cirrhosis, severe emphysema, history of prostate cancer with prior radiation, history of left leg DVT and history of throat cancer who presented with diarrhea and poor oral intake. He was found to be in acute renal failure. C. difficile testing came back positive. CT of the abdomen pelvis also showed new bilateral hydronephrosis and hydroureter. 09/05: Upon encounter, he appears more awake and conversant. He is now oriented to person and place. He denies abdominal pain. Still had loose stools overnight. Denies shortness of breath or chest pain. /DPOA in the bedside. She expresses that he has been requiring more attention medical care at home and was hoping he would go to a jail or rehab. Patient however expr essed that he does not want to go to a jail or medical facility. Both of them patient expressed that he remains a full code at this time and prefers to receive chest compressions, defibrillation or mechanical ventilation if the need arises. However he verbalizes that he does not want to be on long-term ventilation. also brought up that they are contemplating possibly transitioning to home hospice later after he gets discharged. 09/06: He had 4 loose bowel movements overnight but they had slightly more particles on them and are not as watery. He is much more coherent and oriented today. He is now able to person, place and is able to tell me that it is September 2019. He denies abdominal pain. No chest pain or shortness of breath. 09/07: No acute event overnight. No recurrence of diarrhea so far. He denies abdominal pain. No abdominal distention. He does complain of increasing left leg pain. His does state that his left leg has pain more swollen in the past 2 days compared to his previous baseline. He says he has been compliant with his Eliquis for his recently diagnosed left leg DVT. Left leg is grossly swollen. There is a small area of purplish blister on the left plantar aspect which the says has been there for a few days. He has full/good palpable dorsalis pedis pulses. Repeat venous Doppler was pursued and results were discussed with radiologist. He has new extensive acute DVT on the left lower extremity. Discussed with [facility] vascular surgery to see if he would benefit or would be a candidate for thrombectomy. Discussed case in length with Dr. Julian, vascular surgeon vocational teacher who has reviewed the Doppler images. He does not recommend thrombectomy at this time and recommend switching patient's Eliquis to Coumadin with heparin bridge. Recommend wrapping patient's left leg with Timur bandage and leg elevation. Recommend continuing to monitor for signs of Phlegmasia at this time. Results and recommendations discussed with patient and at the bedside. He does not have melena or gross hematochezia but does have a positive FOBT. Discussed risk and benefits anticoagulation. Patient and verbalized understanding. Patient is deemed competent at this time and is well oriented. He verbalizes good understanding of the disease process but is hesitant about being continued on anticoagulation. He requests to think about anticoagulation tonight and prefers not to be started on heparin or Coumadin at this time until he made his final decision. Discussed the risk of disease progression due to untreated DVT and he verbalizes understanding. 09/08: Patient had 2 episodes of loose stools overnight but not as watery as needed first came in. He refused to have labs drawn and refused his medications as wel last night. He finally agreed to be started on heparin drip earlier this morning and was started on heparin at 5 AM. No progression of left leg swelling nor new discoloration on encounter. He continues to have good dorsalis pedis pulses. Reason For Visit: ACUTE RENAL FAILURE,ACUTE DIARRHEA Physical Exam Vital Signs: Temp Pulse Resp BP Pulse Ox 97.5 F 76 18 119/44 L 91 L 09/08/19 16:00 09/08/19 16:00 09/08/19 16:00 09/08/19 16:00 09/08/19 16:00 Intake & Output 09/07/19 09/08/19 09/09/19 06:59 06:59 06:59 Intake Total 3878 1200 329 Output Total 1050 600 400 Balance 2828 600 -71 Weight 182 lb 1.629 oz 177 lb 4.026 oz General appearance: PRESENT: no acute distress, well-developed, well-nourished Head exam: PRESENT: atraumatic, normocephalic Eye exam: PRESENT: conjunctiva pink, EOMI, PERRLA. ABSENT: scleral icterus Ear exam: PRESENT: normal external ear exam Mouth exam: PRESENT: moist, tongue midline Neck exam: ABSENT: carotid bruit, JVD, lymphadenopathy, thyromegaly Respiratory exam: PRESENT: clear to auscultation katharina. ABSENT: rales, rhonchi, wheezes Cardiovascular exam: PRESENT: RRR. ABSENT: diastolic murmur, rubs, systolic murmur GI/Abdominal exam: PRESENT: normal bowel sounds, soft. ABSENT: distended, guarding, mass, organolmegaly, rebound, tenderness Rectal exam: PRESENT: deferred Extremities exam: PRESENT: tenderness, +2 edema - left LE Neurological exam: PRESENT: alert, awake, oriented to person, oriented to place, CN II-XII grossly intact. ABSENT: motor sensory deficit Results Laboratory Results: 09/07/19 19:09 09/08/19 14:50 09/07/19 09/08/19 09/08/19 19:09 05:25 07:50 WBC 4.7 RBC 2.82 L Hgb 9.1 L Hct 27.5 L MCV 97 MCH 32.1 MCHC 33.0 RDW 17.6 H Plt Count 132 L Seg Neutrophils % 70.1 Sodium 137.1 Potassium 3.3 L Chloride 109 H Carbon Dioxide 22 Anion Gap 6 BUN 39 H Creatinine 2.24 H Est GFR ( Amer) 34 L Glucose 92 Calcium 10.4 H Magnesium 1.5 L PTH Intact Urine Color YELLOW Urine Appearance CLEAR Urine pH 5.0 Ur Specific [place] 1.012 Urine Protein NEGATIVE Urine Glucose (UA) NEGATIVE Urine Ketones NEGATIVE Urine Blood MODERATE H Urine Nitrite NEGATIVE Ur Leukocyte Esterase SMALL H Urine WBC (Auto) 3 Urine RBC (Auto) 39 09/08/19 09/08/19 11:33 14:50 WBC RBC Hgb Hct MCV MCH MCHC RDW Plt Count Seg Neutrophils % Sodium Potassium 3.5 L Chloride Carbon Dioxide Anion Gap BUN Creatinine Est GFR ( Amer) Glucose Calcium Magnesium 2.1 PTH Intact 420.9 H Urine Color Urine Appearance Urine pH Ur Specific [place] Urine Protein Urine Glucose (UA) Urine Ketones Urine Blood Urine Nitrite Ur Leukocyte Esterase Urine WBC (Auto) Urine RBC (Auto) 09/04/19 09/05/19 14:20 06:43 Creatine Kinase 25 L Troponin I 0.054 Impressions: Chest X-Ray 09/04/19 13:39 IMPRESSION: Stable chronic interstitial changes without definite superimposed cardiopulmonary process. Abdomen/Pelvis CT 09/04/19 17:09 IMPRESSION: New bilateral hydronephrosis - hydroureter, left greater than right. Surgical changes consistent with prostatectomy. Mild pelvic free fluid. Elise catheter decompresses the bladder.Small bilateral pleural effusions and basilar subsegmental atelectasis. Venous Doppler Study 09/07/19 00:00 IMPRESSION: Acute left lower extremity deep venous thrombosis occludes the superficial femoral vein and extends into the common femoral veins partially occlusive. Small amount of thrombus extends into the greater saphenous vein the saphenous femoral junction Assessment and Plan - Diagnosis (1) Acute DVT (deep venous thrombosis) Qualifiers: DVT location: lower extremity Laterality: left Is this a current diagnosis for this admission?: Yes Plan: 09/07: Left leg is grossly swollen. There is a small area of purplish blister on the left plantar aspect which the says has been there for a few days. He has full/good palpable dorsalis pedis pulses. Repeat venous Doppler was pursued and results were discussed with radiologist. He has new extensive acute DVT on the left lower extremity. Discussed with [facility] vascular surgery to see if he would benefit or would be a candidate for thrombectomy. Discussed case in length with Dr. Julian, vascular surgeon vocational teacher who has reviewed the Doppler images. He does not recommend thrombectomy at this time and recommend switching patient's Eliquis to Coumadin with heparin bridge. Recommend wrapping patient's left leg with Timur bandage and leg elevation. Recommend continuing to monitor for signs of Phlegmasia at this time. Results and recommendations with patient and at the bedside. He does not have melena or gross hematochezia but does have a positive FOBT. Discussed risk and benefits anticoagulation. Patient and verbalized understanding. Patient is competent this time and is well oriented. He verbalizes good understanding of the disease process but is hesitant about being continued on anticoagulation. He requests to think about anticoagulation tonight and prefers not to be started on heparin or Coumadin at this time until he made his final decision. Discussed the risk of disease progression due to untreated DVT and he verbalizes understanding. 09/08: He finally agreed to be started on heparin drip earlier this morning and was started on heparin at 5 AM. No progression of left leg swelling nor new discoloration on encounter. He continues to have good dorsalis pedis pulses. (2) C. difficile colitis Is this a current diagnosis for this admission?: Yes Plan: 09/05: Started on p.o. vancomycin and IV Flagyl. Continue IV fluids. 09/06: Slightly improving. 09/07: Improving. 09/08: He had 2 loose BM overnight but not as watery as before. (3) Acute metabolic encephalopathy Is this a current diagnosis for this admission?: Yes Plan: Improving. Likely secondary to acute renal failure. 09/06: Resolving. Mentation significantly improved. 09/07: Resolved. (4) Acute on chronic kidney failure Qualifiers: Acute renal failure type: unspecified Chronic kidney disease stage: unspecified stage Qualified Code(s): N17.9 - Acute kidney failure, un specified; N18.9 - Chronic kidney disease, unspecified Is this a current diagnosis for this admission?: Yes Plan: Likely prerenal from volume depletion from diarrhea and poor oral intake. We will continue IV fluids for now repeat BMP tomorrow. 09/05: Creatinine improving with IV fluids. CT of the abdomen pelvis did reveal new bilateral hydroureter and hydronephrosis. Noted chronic prostatectomy related changes. Will keep Elise catheter for now but he will need outpatient urology appointment. 09/06: Creatinine continue to improve with hydration. 09/07: Creatinine continues to trend down towards baseline. (5) Dehydration Is this a current diagnosis for this admission?: Yes Plan: Improved. IV fluids as mentioned. (6) Hypokalemia Is this a current diagnosis for this admission?: Yes (7) Hypomagnesemia Is this a current diagnosis for this admission?: Yes - Time Time Spent with patient: 25-34 minutes
[2019-09-08] MEDS: TAMSULOSIN HCL 0.4 MG CAP.SR.24H PO SCH (18:13)
[2019-09-08] MEDS: SIMVASTATIN 40 MG TABLET PO SCH (21:20)
[2019-09-08] MEDS: POTASSIUM CHLORIDE 10 MEQ TABLET.ER PO SCH (21:20)
[2019-09-09] MEDS: METRONIDAZOLE 500 MG/NS RTU 500 MG/100 ML RTUPB IV SCH ×4 (03:39→21:21)
[2019-09-09 04:37] LABS: ABSOLUTE EOSINOPHILS # (AUTO) 0.1 10^3/uL (0.0-0.6); ABSOLUTE LYMPHOCYTES (AUTO) 0.9 10^3/uL (0.5-4.7); ABSOLUTE MONOCYTES (AUTO) 0.2 10^3/uL (0.1-1.4); ABSOLUTE NEUT (AUTO) 2.6 10^3/uL (1.7-8.2); BASOPHILS % (AUTO) 0.1 % (0-2); EOSINOPHILS % (AUTO) 1.5 % (0-6); HEMATOCRIT 27.2 % (37.9-51.0); HEMOGLOBIN 9.1 g/dL (13.5-17.0); LYMPHOCYTES % (AUTO) 23.1 % (13-45); MEAN CORPUSCULAR HEMOGLOBIN 32.5 pg (27.0-33.4); MEAN CORPUSCULAR HGB CONC 33.4 g/dL (32.0-36.0); MEAN CORPUSCULAR VOLUME 97 fl (80-97); MONOCYTES % (AUTO) 5.1 % (3-13); PLATELET COUNT 116 10^3/uL (150-450); RED CELL DISTRIBUTION WIDTH 17.2 % (11.5-14.0); SEGMENTED NEUTROPHILS % (AUTO) 70.2 % (42-78); TOTAL CELLS COUNTED % (AUTO) 100 %; WHITE BLOOD COUNT 3.7 10^3/uL (4.0-10.5)
[2019-09-09 05:38] LABS: ANION GAP 7 (5-19); BLOOD UREA NITROGEN 32 mg/dL (7-20); CALCIUM 10.4 mg/dL (8.4-10.2); CARBON DIOXIDE 20 mmol/L (22-30); CHLORIDE 110 mmol/L (98-107); GLUCOSE 83 mg/dL (75-110); POTASSIUM 3.8 mmol/L (3.6-5.0)
[2019-09-09] MEDS: VANCOMYCIN HCL INJ 500 MG VIAL PO SCH ×3 (05:55→18:08)
[2019-09-09] MEDS: NYSTATIN 500000 UNIT/5 ML UDCUP PO SCH ×3 (05:55→18:08)
[2019-09-09] MEDS: GABAPENTIN 100 MG CAPSULE PO SCH ×3 (05:55→21:21)
[2019-09-09] MEDS: HEPARIN SODIUM,PORCINE/D5W 25,000 UNIT/250 ML RTUINJ IV PRN (06:30)
[2019-09-09] MEDS: PANTOPRAZOLE SODIUM 40 MG TABLET.DR PO SCH ×2 (08:30→16:49)
[2019-09-09] MEDS: LACTOBACILLUS ACIDOPHILUS 250 MG TAB PO SCH ×2 (09:43→18:07)
[2019-09-09] MEDS: ALLOPURINOL 100 MG TABLET PO SCH (09:43)
[2019-09-09] MEDS: METOPROLOL SUCCINATE 50 MG TAB.SR.24H PO SCH (09:43)
[2019-09-09] MEDS: AMIODARONE HCL 200 MG TABLET PO SCH (09:43)
[2019-09-09] MEDS: POTASSIUM CHLORIDE 10 MEQ TABLET.ER PO SCH ×2 (09:43→21:20)
[2019-09-09] MEDS: OXYCODONE-ACETAMINOPHEN 5-325 MG TABLET PO PRN (14:44)
--- NOTE | 2019-09-09 16:44 | PDOC PROGRESS REPORT ---
Subjective Progress Note for:: 09/09/19 Subjective:: QAMAR BOWEN is a 84 year old male with a past medical history of CAD with prior PCI and stenting, history of lumbar surgery, cirrhosis, severe emphysema, history of prostate cancer with prior radiation, history of left leg DVT and history of throat cancer who presented with diarrhea and poor oral intake. He was found to be in acute renal failure. C. difficile testing came back positive. CT of the abdomen pelvis also showed new bilateral hydronephrosis and hydroureter. 09/05: Upon encounter, he appears more awake and conversant. He is now oriented to person and place. He denies abdominal pain. Still had loose stools overnight. Denies shortness of breath or chest pain. /DPOA in the bedside. She expresses that he has been requiring more attention medical care at home and was hoping he would go to a [facility] or rehab. Patient however expr essed that he does not want to go to a [facility] or medical facility. Both of them patient expressed that he remains a full code at this time and prefers to receive chest compressions, defibrillation or mechanical ventilation if the need arises. However he verbalizes that he does not want to be on long-term ventilation. also brought up that they are contemplating possibly transitioning to home hospice later after he gets discharged. 09/06: He had 4 loose bowel movements overnight but they had slightly more particles on them and are not as watery. He is much more coherent and oriented today. He is now able to person, place and is able to tell me that it is September 2019. He denies abdominal pain. No chest pain or shortness of breath. 09/07: No acute event overnight. No recurrence of diarrhea so far. He denies abdominal pain. No abdominal distention. He does complain of increasing left leg pain. His does state that his left leg has pain more swollen in the past 2 days compared to his previous baseline. He says he has been compliant with his Eliquis for his recently diagnosed left leg DVT. Left leg is grossly swollen. There is a small area of purplish blister on the left plantar aspect which the says has been there for a few days. He has full/good palpable dorsalis pedis pulses. Repeat venous Doppler was pursued and results were discussed with radiologist. He has new extensive acute DVT on the left lower extremity. Discussed with [facility] vascular surgery to see if he would benefit or would be a candidate for thrombectomy. Discussed case in length with Dr. Julian, vascular surgeon optical effects layout person who has reviewed the Doppler images. He does not recommend thrombectomy at this time and recommend switching patient's Eliquis to Coumadin with heparin bridge. Recommend wrapping patient's left leg with Timur bandage and leg elevation. Recommend continuing to monitor for signs of Phlegmasia at this time. Results and recommendations discussed with patient and at the bedside. He does not have melena or gross hematochezia but does have a positive FOBT. Discussed risk and benefits anticoagulation. Patient and verbalized understanding. Patient is deemed competent at this time and is well oriented. He verbalizes good understanding of the disease process but is hesitant about being continued on anticoagulation. He requests to think about anticoagulation tonight and prefers not to be started on heparin or Coumadin at this time until he made his final decision. Discussed the risk of disease progression due to untreated DVT and he verbalizes understanding. 09/08: Patient had 2 episodes of loose stools overnight but not as watery as needed first came in. He refused to have labs drawn and refused his medications as well last night. He finally agreed to be started on heparin drip earlier this morning and was started on heparin at 5 AM. No progression of left leg swelling nor new discoloration on encounter. He continues to have good dorsalis pedis pulses. 09/09: He had one episode of loose BM overnight. He is at his baseline mentation. There is slight improvement in the left leg swelling today. No discoloration. Good dorsalis pedis pulses. Reason For Visit: ACUTE RENAL FAILURE,ACUTE DIARRHEA Physical Exam Vital Signs: Temp Pulse Resp BP Pulse Ox 97.8 F 69 16 125/59 L 97 09/09/19 12:20 09/09/19 12:20 09/09/19 12:20 09/09/19 12:20 09/09/19 12:20 Intake & Output 09/08/19 09/09/19 09/10/19 06:59 06:59 06:59 Intake Total 1200 2254 1160 Output Total 600 1300 Balance 765 749 0200 Weight 177 lb 4.026 oz 181 lb 7.047 oz General appearance: PRESENT: no acute distress, well-developed, well-nourished Head exam: PRESENT: atraumatic, normocephalic Eye exam: PRESENT: conjunctiva pink, EOMI, PERRLA. ABSENT: scleral icterus Ear exam: PRESENT: normal external ear exam Mouth exam: PRESENT: moist, tongue midline Neck exam: ABSENT: carotid bruit, JVD, lymphadenopathy, thyromegaly Respiratory exam: PRESENT: clear to auscultation katharina. ABSENT: rales, rhonchi, wheezes Cardiovascular exam: PRESENT: RRR. ABSENT: diastolic murmur, rubs, systolic murmur Pulses: PRESENT: normal dorsalis pedis pul GI/Abdominal exam: PRESENT: normal bowel sounds, soft. ABSENT: distended, guarding, mass, organolmegaly, rebound, tenderness Rectal exam: PRESENT: deferred Extremities exam: PRESENT: +2 edema, other - There is slight improvement in the left leg swelling today. No discoloration. Good dorsalis pedis pulses. Neurological exam: PRESENT: alert, awake, oriented to person, oriented to place, oriented to time, oriented to situation, CN II-XII grossly intact. ABSENT: ysabel r sensory deficit Results Laboratory Results: 09/09/19 03:48 09/09/19 03:48 09/09/19 09/09/19 09/09/19 03:48 03:48 14:15 WBC 3.7 L RBC 2.80 L Hgb 9.1 L Hct 27.2 L MCV 97 MCH 32.5 MCHC 33.4 RDW 17.2 H Plt Count 116 L Seg Neutrophils % 70.2 Sodium 136.6 L Potassium 3.8 Chloride 110 H Carbon Dioxide 20 L Anion Gap 7 BUN 32 H Creatinine 2.20 H Est GFR ( Amer) 35 L Glucose 83 Calcium 10.4 H Stool Occult Blood POSITIVE 09/04/19 14:55 Blood Blood Culture - Final NO GROWTH IN 5 DAYS 09/04/19 14:20 Blood Blood Culture - Final NO GROWTH IN 5 DAYS 09/04/19 09/05/19 14:20 06:43 Creatine Kinase 25 L Troponin I 0.054 Impressions: Chest X-Ray 09/04/19 13:39 IMPRESSION: Stable chronic interstitial changes without definite superimposed cardiopulmonary process. Abdomen/Pelvis CT 09/04/19 17:09 IMPRESSION: New bilateral hydronephrosis - hydroureter, left greater than right. Surgical changes consistent with prostatectomy. Mild pelvic free fluid. Elise catheter decompresses the bladder.Small bilateral pleural effusions and basilar subsegmental atelectasis. Venous Doppler Study 09/07/19 00:00 IMPRESSION: Acute left lower extremity deep venous thrombosis occludes the superficial femoral vein and extends into the common femoral veins partially occlusive. Small amount of thrombus extends into the greater saphenous vein the saphenous femoral junction Assessment and Plan - Diagnosis (1) Acute DVT (deep venous thrombosis) Qualifiers: DVT location: lower extremity Laterality: left Is this a current diagnosis for this admission?: Yes Plan: 09/07: Left leg is grossly swollen. There is a small area of purplish blister on the left plantar aspect which the says has been there for a few days. He has full/good palpable dorsalis pedis pulses. Repeat venous Doppler was pursued and results were discussed with radiologist. He has new extensive acute DVT on the left lower extremity. Discussed with [facility] vascular surgery to see if he would benefit or would be a candidate for thrombectomy. Discussed case in length with Dr. Julian, vascular surgeon optical effects layout person who has reviewed the Doppler images. He does not recommend thrombectomy at this time and recommend switching patient's Eliquis to Coumadin with heparin bridge. Recommend wrapping patient's left leg with Timur bandage and leg elevation. Recommend continuing to monitor for signs of Phlegmasia at this time. Results and recommendations with patient and at the bedside. He does not have melena or gross hematochezia but does have a positive FOBT. Discussed risk and benefits anticoagulation. Patient and verbalized understanding. Patient is competent this time and is well oriented. He verbalizes good understanding of the disease process but is hesitant about being continued on anticoagulation. He requests to think about anticoagulation tonight and prefers not to be started on heparin or Coumadin at this time until he made his final decision. Discussed the risk of disease progression due to untreated DVT and he verbalizes understanding. 09/08: He finally agreed to be started on heparin drip earlier this morning and was started on heparin at 5 AM. No progression of left leg swelling nor new discoloration on encounter. He continues to have good dorsalis pedis pulses. 09/09: There is slight improvement in the left leg swelling today. No discoloration. Good dorsalis pedis pulses. Continue heparin drip. (2) C. difficile colitis Is this a current diagnosis for this admission?: Yes Plan: 09/05: Started on p.o. vancomycin and IV Flagyl. Continue IV fluids. 09/08: He had 2 loose BM overnight but not as watery as before. 09/09: He had one loose BM overnight. (3) Acute metabolic encephalopathy Is this a current diagnosis for this admission?: Yes Plan: Improving. Likely secondary to acute renal failure. 09/06: Resolving. Mentation significantly improved. 09/07: Resolved. (4) Acute on chronic kidney failure Qualifiers: Acute renal failure type: unspecified Chronic kidney disease stage: unspecified stage Qualified Code(s): N17.9 - Acute kidney failure, unspecified; N18.9 - Chronic kidney disease, unspecified Is this a current diagnosis for this admission?: Yes Plan: Likely prerenal from volume depletion from diarrhea and poor oral intake. We will continue IV fluids for now repeat BMP tomorrow. 09/05: Creatinine improving with IV fluids. CT of the abdomen pelvis did reveal new bilateral hydroureter and hydronephrosis. Noted chronic prostatectomy related changes. Will keep Elise catheter for now but he will need outpatient urology appointment. 09/06: Creatinine continue to improve with hydration. 09/07: Creatinine continues to trend down towards baseline. 09/09: Creatinine now appears to be at baseline. (5) Dehydration Is this a current diagnosis for this admission?: Yes Plan: Improved. IV fluids as mentioned. (6) Hypokalemia Is this a current diagnosis for this admission?: Yes (7) Hypomagnesemia Is this a current diagnosis for this admission?: Yes - Time Time Spent with patient: 25-34 minutes
[2019-09-09] MEDS: TAMSULOSIN HCL 0.4 MG CAP.SR.24H PO SCH (18:08)
[2019-09-09 18:56] LABS: INTERNATIONAL RATION (INR) 1.54; PROTHROMBIN TIME 18.6 SEC (11.4-15.4)
[2019-09-09] MEDS: SIMVASTATIN 40 MG TABLET PO SCH (21:21)
[2019-09-09] MEDS: NORMAL SALINE 1000 ML 1,000 ML IV PRN (21:25)
[2019-09-10] MEDS: VANCOMYCIN HCL INJ 500 MG VIAL PO SCH ×4 (00:12→18:27)
[2019-09-10] MEDS: NYSTATIN 500000 UNIT/5 ML UDCUP PO SCH ×4 (00:13→18:27)
[2019-09-10] MEDS: HEPARIN SOD (PORCINE) 1,000 UNIT/ML 10 ML VIAL IV PRN (02:13)
[2019-09-10] MEDS: METRONIDAZOLE 500 MG/NS RTU 500 MG/100 ML RTUPB IV SCH ×4 (02:14→22:18)
[2019-09-10] MEDS: GABAPENTIN 100 MG CAPSULE PO SCH ×3 (05:35→22:18)
[2019-09-10] MEDS: PANTOPRAZOLE SODIUM 40 MG TABLET.DR PO SCH ×2 (08:14→16:58)
[2019-09-10] MEDS: ALLOPURINOL 100 MG TABLET PO SCH (10:07)
[2019-09-10] MEDS: AMIODARONE HCL 200 MG TABLET PO SCH (10:07)
[2019-09-10] MEDS: LACTOBACILLUS ACIDOPHILUS 250 MG TAB PO SCH ×2 (10:07→18:27)
[2019-09-10] MEDS: METOPROLOL SUCCINATE 50 MG TAB.SR.24H PO SCH (10:08)
[2019-09-10] MEDS: OXYCODONE-ACETAMINOPHEN 5-325 MG TABLET PO PRN (10:08)
[2019-09-10] MEDS: POTASSIUM CHLORIDE 10 MEQ TABLET.ER PO SCH ×2 (10:09→22:18)
[2019-09-10 10:55] LABS: ABSOLUTE LYMPHOCYTES (AUTO) 0.9 10^3/uL (0.5-4.7); ABSOLUTE MONOCYTES (AUTO) 0.2 10^3/uL (0.1-1.4); ABSOLUTE NEUT (AUTO) 2.3 10^3/uL (1.7-8.2); BASOPHILS % (AUTO) 0.2 % (0-2); EOSINOPHILS % (AUTO) 1.2 % (0-6); HEMATOCRIT 26.5 % (37.9-51.0); HEMOGLOBIN 8.9 g/dL (13.5-17.0); LYMPHOCYTES % (AUTO) 25.4 % (13-45); MEAN CORPUSCULAR HEMOGLOBIN 32.5 pg (27.0-33.4); MEAN CORPUSCULAR HGB CONC 33.5 g/dL (32.0-36.0); MEAN CORPUSCULAR VOLUME 97 fl (80-97); MONOCYTES % (AUTO) 6.2 % (3-13); PLATELET COUNT 128 10^3/uL (150-450); RED BLOOD COUNT 2.74 10^6/uL (4.35-5.55); RED CELL DISTRIBUTION WIDTH 17.6 % (11.5-14.0); TOTAL CELLS COUNTED % (AUTO) 100 %; WHITE BLOOD COUNT 3.4 10^3/uL (4.0-10.5)
[2019-09-10 10:58] LABS: BLOOD UREA NITROGEN 25 mg/dL (7-20); CALCIUM 10.3 mg/dL (8.4-10.2); CARBON DIOXIDE 22 mmol/L (22-30); GLUCOSE 90 mg/dL (75-110); POTASSIUM 3.8 mmol/L (3.6-5.0)
[2019-09-10] MEDS: NORMAL SALINE 1000 ML 1,000 ML IV PRN (11:00)
[2019-09-10 11:04] LABS: CHLORIDE 109 mmol/L (98-107)
[2019-09-10 11:06] LABS: ANION GAP 4 (5-19)
--- NOTE | 2019-09-10 16:21 | PDOC PROGRESS REPORT ---
Subjective Progress Note for:: 09/10/19 Subjective:: QAMAR BOWEN is a 84 year old male with a past medical history of CAD with prior PCI and stenting, history of lumbar surgery, cirrhosis, severe emphysema, history of prostate cancer with prior radiation, history of left leg DVT and history of throat cancer who presented with diarrhea and poor oral intake. He was found to be in acute renal failure. C. difficile testing came back positive. CT of the abdomen pelvis also showed new bilateral hydronephrosis and hydroureter. 09/05: Upon encounter, he appears more awake and conversant. He is now oriented to person and place. He denies abdominal pain. Still had loose stools overnight. Denies shortness of breath or chest pain. /DPOA in the bedside. She expresses that he has been requiring more attention medical care at home and was hoping he would go to a sn[facility] or rehab. Patient however expr essed that he does not want to go to a snf or medical facility. Both of them patient expressed that he remains a full code at this time and prefers to receive chest compressions, defibrillation or mechanical ventilation if the need arises. However he verbalizes that he does not want to be on long-term ventilation. also brought up that they are contemplating possibly transitioning to home hospice later after he gets discharged. 09/06: He had 4 loose bowel movements overnight but they had slightly more particles on them and are not as watery. He is much more coherent and oriented today. He is now able to person, place and is able to tell me that it is September 2019. He denies abdominal pain. No chest pain or shortness of breath. 09/07: No acute event overnight. No recurrence of diarrhea so far. He denies abdominal pain. No abdominal distention. He does complain of increasing left leg pain. His does state that his left leg has pain more swollen in the past 2 days compared to his previous baseline. He says he has been compliant with his Eliquis for his recently diagnosed left leg DVT. Left leg is grossly swollen. There is a small area of purplish blister on the left plantar aspect which the says has been there for a few days. He has full/good palpable dorsalis pedis pulses. Repeat venous Doppler was pursued and results were discussed with radiologist. He has new extensive acute DVT on the left lower extremity. Discussed with [facility] vascular surgery to see if he would benefit or would be a candidate for thrombectomy. Discussed case in length with Dr. Julian, vascular surgeon education analyst who has reviewed the Doppler images. He does not recommend thrombectomy at this time and recommend switching patient's Eliquis to Coumadin with heparin bridge. Recommend wrapping patient's left leg with Timur bandage and leg elevation. Recommend continuing to monitor for signs of Phlegmasia at this time. Results and recommendations discussed with patient and at the bedside. He does not have melena or gross hematochezia but does have a positive FOBT. Discussed risk and benefits anticoagulation. Patient and verbalized understanding. Patient is deemed competent at this time and is well oriented. He verbalizes good understanding of the disease process but is hesitant about being continued on anticoagulation. He requests to think about anticoagulation tonight and prefers not to be started on heparin or Coumadin at this time until he made his final decision. Discussed the risk of disease progression due to untreated DVT and he verbalizes understanding. 09/08: Patient had 2 episodes of loose stools overnight but not as watery as needed first came in. He refused to have labs drawn and refused his medications as well last night. He finally agreed to be started on heparin drip earlier this morning and was started on heparin drip at 5 AM. No progression of left leg swelling nor new discoloration on encounter. He continues to have good dorsalis pedis pulses. 09/09: He had one episode of loose BM overnight. He is at his baseline mentation. There is slight improvement in the left leg swelling today. No discoloration. Good dorsalis pedis pulses. 09/10: No acute event overnight. Left leg swelling has been stable. No disc oloration. Purplish bullae on the left foot has remained stable as well. Pulses remain full. Denies chest pain or shortness of breath. As mentioned before, he is a positive FOBT. He does not have any gross melena or hematochezia. He does have history of liver cirrhosis on review of previous imaging studies. He does report he was a heavy alcohol drinker before. We rediscussed the risk and benefits of long-term anticoagulation. Discussed with him and his . He and his prefer to continue anticoagulation. Discussed with Dr. Noriega about the possibility of IVC filter placement and he does not recommend IVC filter in his case. He is currently on heparin drip with a plan to start and switch him to Coumadin. With his history of cirrhosis, chronic alcoholism and positive FOBT with no gross bleeding manifestations, it is prudent to pursue endoscopic studies to screen for varices and rule out occult GI sources of bleeding before starting him on Coumadin. Consulted surgery. Discussed with Dr. Villeda about the rationale of pursuing EGD and possible colonoscopy in this patient. Discussed the risk and benefits of endoscopic procedures with patient and and he feels strongly about pursuing endoscopy. Reason For Visit: ACUTE RENAL FAILURE,ACUTE DIARRHEA Physical Exam Vital Signs: Temp Pulse Resp BP Pulse Ox 98.0 F 65 18 100/50 L 95 09/10/19 12:00 09/10/19 12:00 09/10/19 12:00 09/10/19 12:00 09/10/19 12:00 Intake & Output 09/09/19 09/10/19 09/11/19 06:59 06:59 06:59 Intake Total 2254 1633 1161 Output Total 1300 790 Balance 146 127 0091 Weight 181 lb 7.047 oz 191 lb 2.252 oz General appearance: PRESENT: no acute distress, well-developed, well-nourished Head exam: PRESENT: atraumatic, normocephalic Eye exam: PRESENT: conjunctiva pink, EOMI, PERRLA. ABSENT: scleral icterus Ear exam: PRESENT: normal external ear exam Mouth exam: PRESENT: moist, tongue midline Neck exam: ABSENT: carotid bruit, JVD, lymphadenopathy, thyromegaly Respiratory exam: PRESENT: clear to auscultation katharina. ABSENT: rales, rhonchi, wheezes Cardiovascular exam: PRESENT: RRR. ABSENT: diastolic murmur, rubs, systolic murmur Pulses: PRESENT: normal dorsalis pedis pul Vascular exam: PRESENT: normal capillary refill GI/Abdominal exam: PRESENT: normal bowel sounds, soft. ABSENT: distended, guarding, mass, organolmegaly, rebound, tenderness Rectal exam: PRESENT: deferred Extremities exam: PRESENT: pedal edema, +2 edema. ABSENT: clubbing Neurological exam: PRESENT: alert, awake, oriented to person, oriented to place, oriented to time, oriented to situation, CN II-XII grossly intact. ABSENT: motor sensory deficit Results Laboratory Results: 09/10/19 08:05 09/10/19 08:05 09/10/19 09/10/19 08:05 08:05 WBC 3.4 L RBC 2.74 L Hgb 8.9 L Hct 26.5 L MCV 97 MCH 32.5 MCHC 33.5 RDW 17.6 H Plt Count 128 L Seg Neutrophils % 67.0 Sodium 135.4 L Potassium 3.8 Chloride 109 H Carbon Dioxide 22 Anion Gap 4 L BUN 25 H Creatinine 2.09 H Est GFR ( Amer) 37 L Glucose 90 Calcium 10.3 H 09/04/19 14:55 Blood Blood Culture - Final NO GROWTH IN 5 DAYS 09/04/19 14:20 Blood Blood Culture - Final NO GROWTH IN 5 DAYS 09/04/19 09/05/19 14:20 06:43 Creatine Kinase 25 L Troponin I 0.054 Impressions: Chest X-Ray 09/04/19 13:39 IMPRESSION: Stable chronic interstitial changes without definite superimposed cardiopulmonary process. Abdomen/Pelvis CT 09/04/19 17:09 IMPRESSION: New bilateral hydronephrosis - hydroureter, left greater than right. Surgical changes consistent with prostatectomy. Mild pelvic free fluid. Elise catheter decompresses the bladder.Small bilateral pleural effusions and basilar subsegmental atelectasis. Venous Doppler Study 09/07/19 00:00 IMPRESSION: Acute left lower extremity deep venous thrombosis occludes the superficial femoral vein and extends into the common femoral veins partially occlusive. Small amount of thrombus extends into the greater saphenous vein the saphenous femoral junction Assessment and Plan - Diagnosis (1) Acute DVT (deep venous thrombosis) Qualifiers: DVT location: lower extremity Laterality: left Is this a current diagnosis for this admission?: Yes Plan: 09/07: Left leg is grossly swollen. There is a small area of purplish blister on the left plantar aspect which the says has been there for a few days. He has full/good palpable dorsalis pedis pulses. Repeat venous Doppler was pursued and results were discussed with radiologist. He has new extensive acute DVT on the left lower extremity. Discussed with [facility] vascular surgery to see if he would benefit or would be a candidate for thrombectomy. Discussed case in length with Dr. Julian, vascular surgeon education analyst who has reviewed the Doppler images. He does not recommend thrombectomy at this time and recommend switching patient's Eliquis to Coumadin with heparin bridge. Recommend wrapping patient's left leg with Timur bandage and leg elevation. Recommend continuing to monitor for signs of Phlegmasia at this time. Results and recommendations with patient and at the bedside. He does not have melena or gross hematochezia but does have a positive FOBT. Discussed risk and benefits anticoagulation. Patient and verbalized understanding. Patient is competent this time and is well oriented. He verbalizes good understanding of the disease process but is hesitant about being continued on anticoagulation. He requests to think about anticoagulation tonight and prefers not to be started on heparin or Coumadin at this time until he made his final decision. Discussed the risk of disease progression due to untreated DVT and he verbalizes understanding. 09/08: He finally agreed to be started on heparin drip earlier this morning and was started on heparin at 5 AM. No progression of left leg swelling nor new discoloration on encounter. He continues to have good dorsalis pedis pulses. 09/09: There is slight improvement in the left leg swelling today. No dis coloration. Good dorsalis pedis pulses. Continue heparin drip. 09/10: Continue heparin drip. Start coumadin pending EGD results. No NOACs due to his CKD. (2) C. difficile colitis Is this a current diagnosis for this admission?: Yes Plan: 09/05: Started on p.o. vancomycin and IV Flagyl. Continue IV fluids. 09/08: He had 2 loose BM overnight but not as watery as before. 09/09: He had one loose BM overnight. 09/10: Had one slightly more formed BM overnight. (3) Acute metabolic encephalopathy Is this a current diagnosis for this admission?: Yes Plan: Improving. Likely secondary to acute renal failure. 09/06: Resolving. Mentation significantly improved. 09/07: Resolved. (4) Acute on chronic kidney failure Qualifiers: Acute renal failure type: unspecified Chronic kidney disease stage: unspec ified stage Qualified Code(s): N17.9 - Acute kidney failure, unspecified; N18.9 - Chronic kidney disease, unspecified Is this a current diagnosis for this admission?: Yes Plan: Likely prerenal from volume depletion from diarrhea and poor oral intake. We will continue IV fluids for now repeat BMP tomorrow. 09/05: Creatinine improving with IV fluids. CT of the abdomen pelvis did reveal new bilateral hydroureter and hydronephrosis. Noted chronic prostatectomy related changes. Will keep Elise catheter for now but he will need outpatient urology appointment. 09/06: Creatinine continue to improve with hydration. 09/07: Creatinine continues to trend down towards baseline. 09/09: Creatinine now appears to be at baseline. (5) Dehydration Is this a current diagnosis for this admission?: Yes Plan: Improved. IV fluids as mentioned. (6) Hypokalemia Is this a current diagnosis for this admission?: Yes (7) Hypomagnesemia Is this a current diagnosis for this admission?: Yes - Time Time Spent with patient: 25-34 minutes
[2019-09-10 17:05] LABS: AMORPHOUS SEDIMENT,URINE TRACE /HPF; APPEARANCE,URINE CLOUDY; BILIRUBIN,URINE NEGATIVE (NEGATIVE); COLOR,URINE YELLOW; GLUCOSE, URINE NEGATIVE (NEGATIVE); KETONES,URINE NEGATIVE (NEGATIVE); LEUKOCYTE ESTERASE,URINE TRACE (NEGATIVE); NITRITE,URINE NEGATIVE (NEGATIVE); PROTEIN,URINE 30 mg/dL (NEGATIVE); URINE SPECIFIC GRAVITY 1.014; UROBILINOGEN,URINE NEGATIVE mg/dL (<2.0)
--- NOTE | 2019-09-10 18:20 | PDOC CONSULTATION ---
Consultation Consult Date: 09/10/19 Provider Consulted: [facility] Consult reason:: Endoscopy History of Present Illness Admission Date/PCP: 09/05/19 12:53 ELOISA MARTINES MD History of Present Illness: QAMAR BOWEN is a 84 year old male with history of prostate cancer post prostatectomy and external radiation had back surgery July 11, 2019 in [place]. Patient discharged the next day but fell at home and admitted to in [facility]. After about 2 weeks noted to have DVT of the left leg and was placed on blood thinner. He was then noted to have lower GI bleed and then admitted to [facility] in early August 2019. They apparently did not do any endoscopic procedure there at that time and patient then discharge to rehab facility on Eliquis and subsequently admitted to [facility] for diarrhea and poor p.o. intake. His stool has been positive for occult blood. However he is positive for C. difficile. We are consulted for possible endoscopy. Patient had a ultrasound of the left leg which confirmed DVT of the left leg and subsequently now on heparin drip. Dr. Noriega apparently was consulted by Dr. Sheikh for possible IVC filter placement but apparently Dr. Noriega feels that patient is not candidate at this time. Nurses claims patient still has diarrhea with greenish dark fluid. Patient's not able to take enough p.o. intake. Past Medical History Cardiac Medical History: Reports: Atrial Fibrillation, DVT, Myocardial Infarction - didn't know it, Hypertension Pulmonary Medical History: Denies: Asthma, Chronic Obstructive Pulmonary Disease (COPD), Sleep Apnea Neurological Medical History: Denies: Seizures GI Medical History: Reports: Gastroesophageal Reflux Disease Denies: Hepatitis, Hiatal Hernia Musculoskeltal Medical History: Reports: Arthritis Hematology: Denies: Anemia, Sickle Cell Disease Past Surgical History Past Surgical History: Reports: Appendectomy, Cardiac Catheterization - stent x2, Coronary Stent, Orthopedic Surgery - rt carpal tunnel, lumbar laminectomy decompression, Pacemaker - medtronic, Other - Resection of throat cancer Social History Lives with: Family Smoking Status: Former Smoker Frequency of Alcohol Use: None Hx Recreational Drug Use: No Drugs: None - Advance Directive Resuscitation Status: Full Code Family History Family History: Reviewed & Not Pertinent Parental Family History Reviewed: Yes Children Family History Reviewed: No Sibling(s) Family History Reviewed.: No Medication/Allergy Home Medications: Amiodarone HCl [Amiodarone HCl 400 mg Tablet] 200 mg PO DAILY 07/16/19 Gabapentin [Neurontin 100 mg Capsule] 100 mg PO Q8 07/16/19 Hydrochlorothiazide [Hydrodiuril 25 mg Tablet] 25 mg PO DAILY 07/16/19 Metoprolol Succinate [Toprol Xl 50 mg Tab.sr] 50 mg PO DAILY 07/16/19 Omeprazole 40 mg PO BIDACBS 07/16/19 Simvastatin [Zocor 40 mg Tablet] 40 mg PO QHS tablet 07/18/19 Allopurinol [Zyloprim 100 mg Tablet] 100 mg PO DAILY 09/04/19 Apixaban [Eliquis 5 mg Tablet] 5 mg PO BID 09/04/19 Colchicine [Colchicine 0.6 mg Tablet] 0.6 mg PO DAILYP PRN 09/04/19 Nifedipine [Nifedipine ER] 60 mg PO DAILY 09/04/19 Allergies/Adverse Reactions: No Known Allergies Allergy (Verified 08/19/19 10:43) Review of Systems Constitutional: PRESENT: as per HPI, weakness Gastrointestinal: PRESENT: diarrhea, other - No significant abdominal pain Musculoskeletal: PRESENT: other - Patient unable to ambulate post lumbar lami nectomy Physical Exam Vital Signs: Temp Pulse Resp BP Pulse Ox 98.0 F 98 16 129/63 H 90 L 09/10/19 16:00 09/10/19 16:00 09/10/19 16:00 09/10/19 16:00 09/10/19 16:00 Intake & Output 09/09/19 09/10/19 09/11/19 06:59 06:59 06:59 Intake Total 2254 1633 1161 Output Total 1300 790 Balance 662 291 0552 Weight 82.3 kg 86.7 kg General appearance: PRESENT: no acute distress Head exam: PRESENT: atraumatic Eye exam: PRESENT: conjunctiva pink Mouth exam: PRESENT: moist Neck exam: PRESENT: full ROM Respiratory exam: PRESENT: clear to auscultation katharina Cardiovascular exam: PRESENT: RRR Pulses: PRESENT: normal radial pulses GI/Abdominal exam: PRESENT: soft, other - Nontender Rectal exam: PRESENT: deferred Extremities exam: PRESENT: other - Has pressure sores on both heels. Has right foot drop with pressure sore on the right big toe tip. He is bedridden. Musculoskeletal exam: PRESENT: other - Nonambulatory Neurological exam: PRESENT: alert, oriented to person, oriented to place, oriented to time, oriented to situation Psychiatric exam: PRESENT: appropriate affect Results Laboratory Results: 09/10/19 08:05 09/10/19 08:05 09/10/19 09/10/19 09/10/19 08:05 08:05 16:30 WBC 3.4 L RBC 2.74 L Hgb 8.9 L Hct 26.5 L MCV 97 MCH 32.5 MCHC 33.5 RDW 17.6 H Plt Count 128 L Seg Neutrophils % 67.0 Sodium 135.4 L Potassium 3.8 Chloride 109 H Carbon Dioxide 22 Anion Gap 4 L BUN 25 H Creatinine 2.09 H Est GFR ( Amer) 37 L Glucose 90 Calcium 10.3 H Urine Color YELLOW Urine Appearance CLOUDY Urine pH 5.0 Ur Specific [place] 1.014 Urine Protein 30 H Urine Glucose (UA) NEGATIVE Urine Ketones NEGATIVE Urine Blood LARGE H Urine Nitrite NEGATIVE Ur Leukocyte Esterase TRACE H Urine WBC (Auto) 0 Urine RBC (Auto) >182 09/04/19 14:55 Blood Blood Culture - Final NO GROWTH IN 5 DAYS 09/04/19 14:20 Blood Blood Culture - Final NO GROWTH IN 5 DAYS 09/04/19 09/05/19 14:20 06:43 Creatine Kinase 25 L Troponin I 0.054 Impressions: Chest X-Ray 09/04/19 13:39 IMPRESSION: Stable chronic interstitial changes without definite superimposed cardiopulmonary process. Abdomen/Pelvis CT 09/04/19 17:09 IMPRESSION: New bilateral hydronephrosis - hydroureter, left greater than right. Surgical changes consistent with prostatectomy. Mild pelvic free fluid. Elise catheter decompresses the bladder.Small bilateral pleural effusions and basilar subsegmental atelectasis. Venous Doppler Study 09/07/19 00:00 IMPRESSION: Acute left lower extremity deep venous thrombosis occludes the superficial femoral vein and extends into the common femoral veins partially occlusive. Small amount of thrombus extends into the greater saphenous vein the saphenous femoral junction Assessment & Plan - Diagnosis (1) Subacute DVT of the left leg Is this a current diagnosis for this admission?: Yes (2) Status post lumbar laminectomy Is this a current diagnosis for this admission?: Yes (3) Clostridioides difficile infection Is this a current diagnosis for this admission?: Yes (4) Positive stool for Hemoccult Is this a current diagnosis for this admission?: Yes (5) History of prostate cancer Is this a current diagnosis for this admission?: Yes - Time Time Spent: 30 to 50 Minutes - Inpatient Certification Medical Necessity: Need Close Monitoring Due to Risk of Patient Decompensation - Plan Summary Plan Summary: 85-year-old male history of prostatectomy and external radiation therapy for p rostate cancer, throat cancer, lumbar laminectomy July 11, 2019 postoperatively became nonambulatory and developed DVT of the left leg and now with C. difficile infection and stool positive for Hemoccult. Patient still having diarrhea and unable to take enough p.o. intake at this time. He was at the rehab facility when he developed the DVT and GI bleed and admitted to [facility] and discharge with no endoscopy done according to the . Recommendations: I have discussed the patient with Dr. Montgomery who has done most of our endoscopy and both of us feels that patient is not a candidate for endoscopy at this time because he does not have any history of upper GI problems in the past and now has C. difficile with diarrhea and positive Hemoccult. He would also need a good bowel prep which is may complicate C Diff infection. Also with a C. difficile infection stool is usually positive for Hemoccult. Patient also has been on heparin drip and no evidence of significant GI bleeding noted. Apparently feels that patient is not a good candidate for IVC filter placement. We will hold off with endoscopy at this time. Continue with anticoagulation. His DVT was diagnosed about 6 weeks ago originally and if patient bleeds actively then may just stop the anticoagulation. Clot in the vein should should be relatively stable and hopefully PE will be unlikely.
[2019-09-10] MEDS: TAMSULOSIN HCL 0.4 MG CAP.SR.24H PO SCH (18:27)
[2019-09-10] MEDS: SIMVASTATIN 40 MG TABLET PO SCH (22:18)
[2019-09-11] MEDS: VANCOMYCIN HCL INJ 500 MG VIAL PO SCH ×4 (00:11→17:50)
[2019-09-11] MEDS: NYSTATIN 500000 UNIT/5 ML UDCUP PO SCH ×4 (00:12→17:49)
[2019-09-11] MEDS: METRONIDAZOLE 500 MG/NS RTU 500 MG/100 ML RTUPB IV SCH ×4 (03:00→21:55)
[2019-09-11 05:15] LABS: ABSOLUTE LYMPHOCYTES (AUTO) 0.9 10^3/uL (0.5-4.7); ABSOLUTE MONOCYTES (AUTO) 0.2 10^3/uL (0.1-1.4); ABSOLUTE NEUT (AUTO) 2.4 10^3/uL (1.7-8.2); BASOPHILS % (AUTO) 0.2 % (0-2); EOSINOPHILS % (AUTO) 1.2 % (0-6); HEMATOCRIT 26.3 % (37.9-51.0); HEMOGLOBIN 8.8 g/dL (13.5-17.0); LYMPHOCYTES % (AUTO) 24.9 % (13-45); MEAN CORPUSCULAR HEMOGLOBIN 32.3 pg (27.0-33.4); MEAN CORPUSCULAR HGB CONC 33.2 g/dL (32.0-36.0); MEAN CORPUSCULAR VOLUME 97 fl (80-97); MONOCYTES % (AUTO) 5.8 % (3-13); PLATELET COUNT 136 10^3/uL (150-450); RED BLOOD COUNT 2.71 10^6/uL (4.35-5.55); RED CELL DISTRIBUTION WIDTH 17.2 % (11.5-14.0); SEGMENTED NEUTROPHILS % (AUTO) 67.9 % (42-78); TOTAL CELLS COUNTED % (AUTO) 100 %; WHITE BLOOD COUNT 3.6 10^3/uL (4.0-10.5)
[2019-09-11 05:41] LABS: ANION GAP 7 (5-19); BLOOD UREA NITROGEN 22 mg/dL (7-20); CALCIUM 10.6 mg/dL (8.4-10.2); CARBON DIOXIDE 19 mmol/L (22-30); CHLORIDE 110 mmol/L (98-107); GLUCOSE 78 mg/dL (75-110); POTASSIUM 4.2 mmol/L (3.6-5.0)
[2019-09-11] MEDS: HEPARIN SOD (PORCINE) 1,000 UNIT/ML 10 ML VIAL IV PRN (06:19)
[2019-09-11] MEDS: GABAPENTIN 100 MG CAPSULE PO SCH ×3 (06:20→21:54)
[2019-09-11] MEDS: PANTOPRAZOLE SODIUM 40 MG TABLET.DR PO SCH ×2 (07:39→16:00)
[2019-09-11] MEDS: AMIODARONE HCL 200 MG TABLET PO SCH (09:58)
[2019-09-11] MEDS: POTASSIUM CHLORIDE 10 MEQ TABLET.ER PO SCH ×2 (09:59→21:54)
[2019-09-11] MEDS: LACTOBACILLUS ACIDOPHILUS 250 MG TAB PO SCH ×2 (09:59→17:49)
[2019-09-11] MEDS: METOPROLOL SUCCINATE 50 MG TAB.SR.24H PO SCH (09:59)
[2019-09-11] MEDS: ALLOPURINOL 100 MG TABLET PO SCH (09:59)
[2019-09-11] MEDS: OXYCODONE-ACETAMINOPHEN 5-325 MG TABLET PO PRN (10:28)
--- NOTE | 2019-09-11 10:30 | RADIOLOGY REPORT (SQ) ---
EXAM DESCRIPTION: NM LUNG VENT/PERF SCAN COMPLETED DATE/TIME: 09/09/2019 4:46 pm REASON FOR STUDY: Extensive DVT and Vtach COMPARISON: Chest films 09/04/2019, 08/14/2019 RADIONUCLIDE AND DOSE: 5.3 millicuries TC-99m MAA Intravenous 32.7 millicuries TC-99m DTPA Inhaled aerosol TECHNIQUE: 2 views of the lungs acquired post ventilation of DTPA aerosol. Eight views of the lungs acquired following injection of MAA. LIMITATIONS: None. FINDINGS: VENTILATION: Symmetric and homogeneous distribution of DTPA aerosol during ventilatory pha se. No significant areas of photopenia. PERFUSION: Perfusion images with normal homogenous activity and no wedge-shaped or segmental defects. No ventilation-perfusion mismatches. Artifact from pacemaker OTHER: No other significant finding. IMPRESSION: No gross perfusion defects. Grossly normal ventilation TECHNICAL DOCUMENTATION: JOB ID: [id number] [employer]- All Rights Reserved Reading location - IP/workstation name: [email or web address]
[2019-09-11] MEDS ORDERED: OXYCODONE-ACETAMINOPHEN 5-325 MG TABLET ONE (11:05)
[2019-09-11] MEDS ORDERED: OXYCODONE-ACETAMINOPHEN 5-325 MG TABLET PO PRN (11:25)
--- NOTE | 2019-09-11 12:39 | RADIOLOGY REPORT (SQ) ---
EXAM DESCRIPTION: CHEST SINGLE VIEW COMPLETED DATE/TIME: 09/11/2019 12:22 pm REASON FOR STUDY: EXTENSIVE DVT, VTACH COMPARISON: 09/04/2019. EXAM PARAMETERS: NUMBER OF VIEWS: One view. TECHNIQUE: Single frontal radiographic view of the chest acquired. RADIATION DOSE: NA LIMITATIONS: None. FINDINGS: LUNGS AND PLEURA: Chronic interstitial scarring, particularly in the mid right lung. No f ocal infiltrates, masses or pneumothorax. No pleural effusion. MEDIASTINUM AND HILAR STRUCTURES: No masses. Contour normal. HEART AND VASCULAR STRUCTURES: Heart normal in size. Normal vasculature. BONES: No acute findings. HARDWARE: Defibrillator. OTHER: No other significant finding. IMPRESSION: STABLE CHRONIC SCARRING. NO ACUTE RADIOGRAPHIC FINDING IN THE CHEST. TECHNICAL DOCUMENTATION: JOB ID: [id number] [email or web address] ([employer] All Rights Reserved Reading location - IP/workstation name: [email or web address]
[2019-09-11] MEDS: HEPARIN SODIUM,PORCINE/D5W 25,000 UNIT/250 ML RTUINJ IV PRN (14:00)
--- NOTE | 2019-09-11 17:30 | PDOC PROGRESS REPORT ---
Subjective Progress Note for:: 09/11/19 Reason For Visit: ACUTE RENAL FAILURE,ACUTE DIARRHEA 09/11/2020 Patient admitted for diarrhea and poor p.o. intake. Physical Exam Vital Signs: Temp Pulse Resp BP Pulse Ox 99.0 F 70 15 127/68 H 93 09/11/19 16:00 09/11/19 16:00 09/11/19 16:00 09/11/19 16:00 09/11/19 16:00 Intake & Output 09/10/19 09/11/19 09/12/19 06:59 06:59 06:59 Intake Total 1633 1721 201 Output Total 790 750 150 Balance 843 971 51 Weight 86.7 kg 90.6 kg General appearance: PRESENT: mild distress Respiratory exam: PRESENT: clear to auscultation katharina. ABSENT: rales, rhonchi, wheezes Cardiovascular exam: PRESENT: RRR. ABSENT: diastolic murmur, rubs, systolic murmur Neurological exam: PRESENT: alert, awake, oriented to person, oriented to place, oriented to time, oriented to situation, CN II-XII grossly intact. ABSENT: motor sensory deficit Psychiatric exam: PRESENT: flat affect Results Laboratory Results: 09/11/19 04:35 09/11/19 04:35 09/10/19 09/11/19 09/11/19 16:30 04:35 04:35 WBC 3.6 L RBC 2.71 L Hgb 8.8 L Hct 26.3 L MCV 97 MCH 32.3 MCHC 33.2 RDW 17.2 H Plt Count 136 L Seg Neutrophils % 67.9 Sodium 135.8 L Potassium 4.2 Chloride 110 H Carbon Dioxide 19 L Anion Gap 7 BUN 22 H Creatinine 1.96 H Est GFR ( Amer) 40 L Glucose 78 Calcium 10.6 H Urine Color YELLOW Urine Appearance CLOUDY Urine pH 5.0 Ur Specific [place] 1.014 Urine Protein 30 H Urine Glucose (UA) NEGATIVE Urine Ketones NEGATIVE Urine Blood LARGE H Urine Nitrite NEGATIVE Ur Leukocyte Esterase TRACE H Urine WBC (Auto) 0 Urine RBC (Auto) >182 09/04/19 09/05/19 14:20 06:43 Creatine Kinase 25 L Troponin I 0.054 Impressions: Abdomen/Pelvis CT 09/04/19 17:09 IMPRESSION: New bilateral hydronephrosis - hydroureter, left greater than right. Surgical changes consistent with prostatectomy. Mild pelvic free fluid. Elise catheter decompresses the bladder.Small bilateral pleural effusions and basilar subsegmental atelectasis. Venous Doppler Study 09/07/19 00:00 IMPRESSION: Acute left lower extremity deep venous thrombosis occludes the superficial femoral vein and extends into the common femoral veins partially occlusive. Small amount of thrombus extends into the greater saphenous vein the saphenous femoral junction Lung Scan-VQ NM 09/09/19 00:00 IMPRESSION: No gross perfusion defects. Grossly normal ventilation Chest X-Ray 09/11/19 00:00 IMPRESSION: STABLE CHRONIC SCARRING. NO ACUTE RADIOGRAPHIC FINDING IN THE CHEST. Assessment and Plan - Diagnosis (1) Acute DVT (deep venous thrombosis) Qualifiers: DVT location: lower extremity Laterality: left Is this a current diagnosis for this admission?: Yes (2) Acute diarrhea Is this a current diagnosis for this admission?: Yes (3) Clostridioides difficile infection Is this a current diagnosis for this admission?: Yes (4) Failure to thrive Qualifiers: Failure to thrive age range: in adult Qualified Code(s): R62.7 - Adult failure to thrive Is this a current diagnosis for this admission?: Yes (5) Positive stool for Hemoccult Is this a current diagnosis for this admission?: Yes (6) Subacute DVT of the left leg Is this a current diagnosis for this admission?: Yes - Plan Summary Summary: 09/11/2019 Vital signs this morning temperature 98.3 pulse 71 blood pressure 126/55 Patient has a history of a DVT in the left leg and now has an acute DVT in the same left leg Medications include Flagyl 500 mg IV every 6 hours protonix 40 mg p.o. twice daily AlSo currently on IV vancomycin and this will be changed to p.o. AlSo currently on heparin 25,000 units continuous IV Patient not a candidate for IVC filter Due to patient having a positive C. difficile also would not be surprised that he is Hemoccult positive. This point I agree with the general surgeons that endoscopy and colonoscopy is not indicated. Patient has another GI bleed then can stop the anticoagulants and pursue with diagnostic studies at that time. Discussed this with the patient's and she agrees. We will talk to the tomorrow about starting to bridge over to Coumadin - Time Time Spent with patient: 35 or more minutes
[2019-09-11] MEDS: TAMSULOSIN HCL 0.4 MG CAP.SR.24H PO SCH (17:50)
[2019-09-11] MEDS: SIMVASTATIN 40 MG TABLET PO SCH (21:54)
[2019-09-12] MEDS: NYSTATIN 500000 UNIT/5 ML UDCUP PO SCH ×3 (00:07→12:12)
[2019-09-12] MEDS: VANCOMYCIN HCL INJ 500 MG VIAL PO SCH ×3 (00:07→13:33)
[2019-09-12] MEDS: NORMAL SALINE 1000 ML 1,000 ML IV PRN ×2 (02:18→17:54)
[2019-09-12] MEDS: METRONIDAZOLE 500 MG/NS RTU 500 MG/100 ML RTUPB IV SCH ×4 (02:18→21:17)
[2019-09-12] MEDS: GABAPENTIN 100 MG CAPSULE PO SCH ×3 (05:34→21:22)
[2019-09-12 06:44] LABS: APPEARANCE,URINE SLIGHTLY-CLOUDY; BILIRUBIN,URINE NEGATIVE (NEGATIVE); COLOR,URINE YELLOW; GLUCOSE, URINE NEGATIVE (NEGATIVE); KETONES,URINE NEGATIVE (NEGATIVE); LEUKOCYTE ESTERASE,URINE TRACE (NEGATIVE); NITRITE,URINE NEGATIVE (NEGATIVE); PROTEIN,URINE 30 mg/dL (NEGATIVE); URINE SPECIFIC GRAVITY 1.015; UROBILINOGEN,URINE NEGATIVE mg/dL (<2.0)
[2019-09-12] MEDS: AMIODARONE HCL 200 MG TABLET PO SCH (09:11)
[2019-09-12] MEDS: HYDROCHLOROTHIAZIDE 25 MG TABLET PO SCH (09:12)
[2019-09-12] MEDS: LACTOBACILLUS ACIDOPHILUS 250 MG TAB PO SCH ×2 (09:12→17:17)
[2019-09-12] MEDS: PANTOPRAZOLE SODIUM 40 MG TABLET.DR PO SCH ×2 (09:12→15:29)
[2019-09-12] MEDS: POTASSIUM CHLORIDE 10 MEQ TABLET.ER PO SCH ×2 (09:12→21:23)
[2019-09-12] MEDS: METOPROLOL SUCCINATE 50 MG TAB.SR.24H PO SCH (09:12)
[2019-09-12] MEDS: ALLOPURINOL 100 MG TABLET PO SCH (09:12)
--- NOTE | 2019-09-12 15:17 | PDOC PROGRESS REPORT ---
Subjective Progress Note for:: 09/12/19 Reason For Visit: ACUTE RENAL FAILURE,ACUTE DIARRHEA 09/12/2019 # 1 C. difficile, #2 heme positive stools probably secondary to #1, DVT recurrent, #3 or p.o. intake Physical Exam Vital Signs: Temp Pulse Resp BP Pulse Ox 98.2 F 69 16 118/68 94 09/12/19 08:14 09/12/19 08:14 09/12/19 08:14 09/12/19 08:14 09/12/19 08:14 Intake & Output 09/11/19 09/12/19 09/13/19 06:59 06:59 06:59 Intake Total 2721 1141 100 Output Total 750 550 225 Balance 1971 591 -125 Weight 90.6 kg 91 kg 91 kg General appearance: PRESENT: disheveled, mild distress, thin, other - Patient appears frail asking to be sent home Respiratory exam: PRESENT: clear to auscultation katharina. ABSENT: rales, rhonchi, wheezes Cardiovascular exam: PRESENT: RRR. ABSENT: diastolic murmur, rubs, systolic murmur Neurological exam: PRESENT: alert, awake, oriented to person, oriented to place, oriented to time, oriented to situation, CN II-XII grossly intact. ABSENT: motor sensory deficit Psychiatric exam: PRESENT: depressed Results Laboratory Results: 09/11/19 04:35 09/11/19 04:35 09/12/19 06:20 Urine Color YELLOW Urine Appearance SLIGHTLY-CLOUDY Urine pH 5.0 Ur Specific [place] 1.015 Urine Protein 30 H Urine Glucose (UA) NEGATIVE Urine Ketones NEGATIVE Urine Blood LARGE H Urine Nitrite NEGATIVE Ur Leukocyte Esterase TRACE H Urine WBC (Auto) 8 Urine RBC (Auto) 53 09/04/19 09/05/19 14:20 06:43 Creatine Kinase 25 L Troponin I 0.054 Impressions: Abdomen/Pelvis CT 09/04/19 17:09 IMPRESSION: New bilateral hydronephrosis - hydroureter, left greater than right. Surgical changes consistent with prostatectomy. Mild pelvic free fluid. Elise catheter decompresses the bladder.Small bilateral pleural effusions and basilar subsegmental atelectasis. Venous Doppler Study 09/07/19 00:00 IMPRESSION: Acute left lower extremity deep venous thrombosis occludes the superficial femoral vein and extends into the common femoral veins partially occlusive. Small amount of thrombus extends into the greater saphenous vein the saphenous femoral junction Lung Scan-VQ NM 09/09/19 00:00 IMPRESSION: No gross perfusion defects. Grossly normal ventilation Chest X-Ray 09/11/19 00:00 IMPRESSION: STABLE CHRONIC SCARRING. NO ACUTE RADIOGRAPHIC FINDING IN THE CHEST. Assessment and Plan - Diagnosis (1) Acute DVT (deep venous thrombosis) Qualifiers: DVT location: lower extremity Laterality: left Is this a current diagnosis for this admission?: Yes (2) Acute diarrhea Is this a current diagnosis for this admission?: Yes (3) Clostridioides difficile infection Is this a current diagnosis for this admission?: Yes (4) Failure to thrive Qualifiers: Failure to thrive age range: in adult Qualified Code(s): R62.7 - Adult failure to thrive Is this a current diagnosis for this admission?: Yes (5) Positive stool for Hemoccult Is this a current diagnosis for this admission?: Yes (6) Subacute DVT of the left leg Is this a current diagnosis for this admission?: Yes - Plan Summary Summary: 09/11/2019 Vital signs this morning temperature 98.3 pulse 71 blood pressure 126/55 Patient has a history of a DVT in the left leg and now has an acute DVT in the same left leg Medications include Flagyl 500 mg IV every 6 hours protonix 40 mg p.o. twice daily AlSo currently on po vancomycin AlSo currently on heparin 25,000 units continuous IV Patient not a candidate for IVC filter Due to patient having a positive C. difficile also would not be surprised that he is Hemoccult positive. This point I agree with the general surgeons that endoscopy and colonoscopy is not indicated. Patient has another GI bleed then can stop the anticoagulants and pursue with diagnostic studies at that time. Discussed this with the patient's and she agrees. We will talk to the tomorrow about starting to bridge over to Coumadin 09/12/2019 Temperature 98, pulse is 70, pressure 118/68, oxygen saturation 92% on air Patient's labs appear stable PT is down to 78.7 on heparin Analysis grossly normal Culture no growth in 5 days urine culture no growth recent stool culture reported as yeast although not Heather Chest x-ray yesterday showed no acute cardiopulmonary disease Patient told me this morning he is tired of being medically treated that he just wants to go home. No longer wants to be in the hospital regardless of the outcome . Patient and his agreed to hospice Patient will continue to be treated at home for his Clostridium with p.o. antibiotics as well as other maintenance medications - Time Time Spent with patient: 25-34 minutes
--- NOTE | 2019-09-12 16:31 | ADVANCED CARE ---
- Diagnosis (1) Acute DVT (deep venous thrombosis) Diagnosis Current: Yes (2) Acute diarrhea Diagnosis Current: Yes (3) Clostridioides difficile infection Diagnosis Current: Yes (4) Failure to thrive Diagnosis Current: Yes (5) Positive stool for Hemoccult Diagnosis Current: Yes (6) Subacute DVT of the left leg Diagnosis Current: Yes Attendance: and patient Resuscitation Status: Do Not Resuscitate Discussion: Discussed with and patient the fact that hospice would keep the patient comfortable, continue to treat his maintenance issues, not do any heroic issues Patient wants to go home, dates he is tired of hospitals and tired of medical treatments for his illnesses Care Planning Goals: Hospice
[2019-09-12] MEDS: TAMSULOSIN HCL 0.4 MG CAP.SR.24H PO SCH (17:17)
[2019-09-12] MEDS: SIMVASTATIN 40 MG TABLET PO SCH (21:23)
[2019-09-13] MEDS: METRONIDAZOLE 500 MG/NS RTU 500 MG/100 ML RTUPB IV SCH ×3 (03:10→15:43)
[2019-09-13] MEDS: GABAPENTIN 100 MG CAPSULE PO SCH ×2 (05:46→13:40)
[2019-09-13] MEDS: HEPARIN SOD (PORCINE) 1,000 UNIT/ML 10 ML VIAL IV PRN (08:21)
[2019-09-13] MEDS: PANTOPRAZOLE SODIUM 40 MG TABLET.DR PO SCH ×2 (08:36→15:43)
[2019-09-13] MEDS: LACTOBACILLUS ACIDOPHILUS 250 MG TAB PO SCH ×2 (09:42→17:35)
[2019-09-13] MEDS: ALLOPURINOL 100 MG TABLET PO SCH (09:42)
[2019-09-13] MEDS: AMIODARONE HCL 200 MG TABLET PO SCH (09:42)
[2019-09-13] MEDS: HYDROCHLOROTHIAZIDE 25 MG TABLET PO SCH (09:42)
[2019-09-13] MEDS: POTASSIUM CHLORIDE 10 MEQ TABLET.ER PO SCH (09:42)
[2019-09-13] MEDS: METOPROLOL SUCCINATE 50 MG TAB.SR.24H PO SCH (09:42)
--- NOTE | 2019-09-13 12:59 | PDOC DISCHARGE SUMMARY ---
Impression - Admit/DC Date/PCP Admission Date/Primary Care Provider: 09/05/19 12:53 ELOISA MARTINES MD Discharge Date: 09/13/19 - Discharge Diagnosis (1) Acute DVT (deep venous thrombosis) Is this a current diagnosis for this admission?: Yes (2) Acute diarrhea Is this a current diagnosis for this admission?: Yes (3) Clostridioides difficile infection Is this a current diagnosis for this admission?: Yes (4) Failure to thrive Is this a current diagnosis for this admission?: Yes (5) Positive stool for Hemoccult Is this a current diagnosis for this admission?: Yes (6) Subacute DVT of the left leg Is this a current diagnosis for this admission?: Yes - Assessment Summary: 09/11/2019 Vital signs this morning temperature 98.3 pulse 71 blood pressure 126/55 Patient has a history of a DVT in the left leg and now has an acute DVT in the same left leg Medications include Flagyl 500 mg IV every 6 hours protonix 40 mg p.o. twice daily AlSo currently on po vancomycin AlSo currently on heparin 25,000 units continuous IV Patient not a candidate for IVC filter Due to patient having a positive C. difficile also would not be surprised that he is Hemoccult positive. This point I agree with the general surgeons that endoscopy and colonoscopy is not indicated. Patient has another GI bleed then can stop the anticoagulants and pursue with diagnostic studies at that time. Discussed this with the patient's and she agrees. We will talk to the tomorrow about starting to bridge over to Coumadin 09/12/2019 Temperature 98, pulse is 70, pressure 118/68, oxygen saturation 92% on air Patient's labs appear stable PT is down to 78.7 on heparin Analysis grossly normal Culture no growth in 5 days urine culture no growth recent stool culture reported as yeast although not Heather Chest x-ray yesterday showed no acute cardiopulmonary disease Patient told me this morning he is tired of being medically treated that he just wants to go home. No longer wants to be in the hospital regardless of the outcome . Patient and his agreed to hospice Patient will continue to be treated at home for his Clostridium with p.o. antibiotics as well as other maintenance medications 09/13/2019 Patient is being discharged to home with the care of hospice today I wrote for patient to be treated with lactobacillus 500 mg twice daily for 15 days, Percocet 01/05/2025 for 3 days 1 every 6 hours and vancomycin 125 mg p.o. every 6 hours for 2 more days. Will complete a 10-day course Patient's medical condition was poor before coming to the hospital and with the reoccurrence of his DVT as well as his Clostridium diarrhea patient basically has given up. States he wants no more treatments he does not want to be in the hospital any longer and both he and his agreed that hospice was appropriate. Patient should be able to continue his other maintenance medications as well. Patient's prognosis is poor - Additional Information Resuscitation Status: Do Not Resuscitate Discharge Diet: As Tolerated Discharge Activity: Activity As Tolerated Referrals: ELOISA MARTINES MD [Primary Care Provider] - (Patient needs referral for urology) Prescriptions: Lactobacillus Acidophilus [Bacid 250 mg Tablet] 500 mg PO BID 15 Days #30 tab Oxycodone HCl/Acetaminophen [Percocet 5-325 mg Tablet] 1 tab PO Q6HP PRN 3 Days #10 tablet PRN Reason: Vancomycin HCl [Vancocin Inj 500 mg Vial] 125 mg PO Q6 2 Days #8 vial Home Medications: Amiodarone HCl [Amiodarone HCl 400 mg Tablet] 200 mg PO DAILY 07/16/19 Gabapentin [Neurontin 100 mg Capsule] 100 mg PO Q8 07/16/19 Hydrochlorothiazide [Hydrodiuril 25 mg Tablet] 25 mg PO DAILY 07/16/19 Metoprolol Succinate [Toprol Xl 50 mg Tab.sr] 50 mg PO DAILY 07/16/19 Omeprazole 40 mg PO BIDACBS 07/16/19 Apixaban [Eliquis 5 mg Tablet] 5 mg PO BID 09/04/19 Nifedipine [Nifedipine ER] 60 mg PO DAILY 09/04/19 Acetaminophen [Tylenol 325 mg Tablet] 650 mg PO Q6HP PRN tablet 09/12/19 Lactobacillus Acidophilus [Bacid 250 mg Tablet] 500 mg PO BID 15 Days #30 tab 09/12/19 Oxycodone HCl/Acetaminophen [Percocet 5-325 mg Tablet] 1 tab PO Q6HP PRN 3 Days #10 tablet 09/12/19 Potassium Chloride [Klor-Con 10 Meq Tablet ER] 20 meq PO Q12 tablet.er 09/12/19 Vancomycin HCl [Vancocin Inj 500 mg Vial] 125 mg PO Q6 2 Days #8 vial 09/12/19 History of Present Illiness History of Present Illness: QAMAR BOWEN is a 84 year old male Physical Exam Vital Signs: Temp Pulse Resp BP Pulse Ox 98.5 F 70 15 132/66 H 92 09/13/19 00:31 09/13/19 07:00 09/13/19 00:31 09/13/19 00:31 09/13/19 00:31 Intake & Output 09/12/19 09/13/19 09/14/19 06:59 06:59 06:59 Intake Total 1141 1520 Output Total 550 835 Balance 591 685 Weight 91 kg 91 kg Results Laboratory Results: WBC 3.6 10^3/uL (4.0-10.5) L 09/11/19 04:35 RBC 2.71 10^6/uL (4.35-5.55) L 09/11/19 04:35 Hgb 8.8 g/dL (13.5-17.0) L 09/11/19 04:35 Hct 26.3 % (37.9-51.0) L 09/11/19 04:35 MCV 97 fl (80-97) 09/11/19 04:35 MCH 32.3 pg (27.0-33.4) 09/11/19 04:35 MCHC 33.2 g/dL (32.0-36.0) 09/11/19 04:35 RDW 17.2 % (11.5-14.0) H 09/11/19 04:35 Plt Count 136 10^3/uL (150-450) L 09/11/19 04:35 Lymph % (Auto) 24.9 % (13-45) 09/11/19 04:35 Blair % (Auto) 5.8 % (3-13) 09/11/19 04:35 Eos % (Auto) 1.2 % (0-6) 09/11/19 04:35 Baso % (Auto) 0.2 % (0-2) 09/11/19 04:35 Absolute Neuts (auto) 2.4 10^3/uL (1.7-8.2) 09/11/19 04:35 Absolute Lymphs (auto) 0.9 10^3/uL (0.5-4.7) 09/11/19 04:35 Absolute Monos (auto) 0.2 10^3/uL (0.1-1.4) 09/11/19 04:35 Absolute Eos (auto) 0.0 10^3/uL (0.0-0.6) 09/11/19 04:35 Absolute Basos (auto) 0.0 10^3/uL (0.0-0.2) 09/11/19 04:35 Seg Neutrophils % 67.9 % (42-78) 09/11/19 04:35 PT 18.6 SEC (11.4-15.4) H 09/09/19 18:20 INR 1.54 09/09/19 18:20 APTT 46.4 SEC (23.5-35.8) H 09/13/19 05:24 Sodium 135.8 mmol/L (137-145) L 09/11/19 04:35 Potassium 4.2 mmol/L (3.6-5.0) 09/11/19 04:35 Chloride 110 mmol/L (98-107) H 09/11/19 04:35 Carbon Dioxide 19 mmol/L (22-30) L 09/11/19 04:35 Anion Gap 7 (5-19) 09/11/19 04:35 BUN 22 mg/dL (7-20) H 09/11/19 04:35 Creatinine 1.96 mg/dL (0.52-1.25) H 09/11/19 04:35 Est GFR ( Amer) 40 (>60) L 09/11/19 04:35 Est GFR (Non-Af Amer) Cancelled 09/07/19 06:15 Est GFR (MDRD) Non-Af 33 (>60) L 09/11/19 04:35 Glucose 78 mg/dL (75-110) 09/11/19 04:35 POC Glucose 102 mg/dL (70-110) 09/13/19 06:08 Lactic Acid 1.8 mmol/L (0.7-2.1) 09/04/19 14:55 Calcium 10.6 mg/dL (8.4-10.2) H 09/11/19 04:35 Magnesium 2.1 mg/dL (1.6-2.3) 09/08/19 14:50 Total Bilirubin 0.7 mg/dL (0.2-1.3) 09/04/19 14:20 Direct Bilirubin 0.5 mg/dL (0.0-0.4) H 09/04/19 14:20 Neonat Total Bilirubin Not Reportable 09/04/19 14:20 Neonat Direct Bilirubin Not Reportable 09/04/19 14:20 Neonat Indirect Bili Not Reportable 09/04/19 14:20 AST 47 U/L (17-59) 09/04/19 14:20 ALT 21 U/L (<50) 09/04/19 14:20 Alkaline Phosphatase 108 U/L (38-126) 09/04/19 14:20 Creatine Kinase 25 U/L (55-170) L 09/05/19 06:43 Troponin I 0.054 ng/mL 09/04/19 14:20 Total Protein 5.3 g/dL (6.3-8.2) L 09/04/19 14:20 Albumin 2.6 g/dL (3.5-5.0) L 09/04/19 14:20 EGFR Cancelled 09/07/19 06:15 PTH Intact 420.9 pg/mL (10.0-65.0) H 09/08/19 11:33 Urine Color YELLOW 09/12/19 06:20 Urine Appearance SLIGHTLY-CLOUDY 09/12/19 06:20 Urine pH 5.0 (5.0-9.0) 09/12/19 06:20 Ur Specific Coin 1.015 09/12/19 06:20 Urine Protein 30 mg/dL (NEGATIVE) H 09/12/19 06:20 Urine Glucose (UA) NEGATIVE mg/dL (NEGATIVE) 09/12/19 06:20 Urine Ketones NEGATIVE mg/dL (NEGATIVE) 09/12/19 06:20 Urine Blood LARGE (NEGATIVE) H 09/12/19 06:20 Urine Nitrite NEGATIVE (NEGATIVE) 09/12/19 06:20 Urine Bilirubin NEGATIVE (NEGATIVE) 09/12/19 06:20 Urine Urobilinogen NEGATIVE mg/dL (<2.0) 09/12/19 06:20 Ur Leukocyte Esterase TRACE (NEGATIVE) H 09/12/19 06:20 Urine WBC (Auto) 8 /HPF 09/12/19 06:20 Urine RBC (Auto) 53 /HPF 09/12/19 06:20 U Hyaline Cast (Auto) 3 /LPF 09/12/19 06:20 Urine Bacteria (Auto) TRACE /HPF 09/10/19 16:30 Amorphous Sediment Auto TRACE /HPF 09/10/19 16:30 Urine Mucus (Auto) RARE /LPF 09/12/19 06:20 Urine Ascorbic Acid NEGATIVE (NEGATIVE) 09/12/19 06:20 Stool Occult Blood POSITIVE (NEGATIVE) 09/09/19 14:15 POC Stool Occult Blood POSITIVE (NEGATIVE) 09/04/19 13:55 Stool for White Cells FEW H 09/04/19 18:03 Stl C. Difficile GDH Ag POSITIVE (NEGATIVE) 09/04/19 18:03 Stl C.difficile Tox A&B POSITIVE (NEGATIVE) 09/04/19 18:03 Urine Opiates Screen UNCONFIRMED POSITIVE 09/04/19 15:40 Urine Methadone Screen NEGATIVE 09/04/19 15:40 Ur Barbiturates Screen NEGATIVE 09/04/19 15:40 Ur Phencyclidine Scrn NEGATIVE 09/04/19 15:40 Ur Amphetamines Screen NEGATIVE 09/04/19 15:40 U Benzodiazepines Scrn NEGATIVE 09/04/19 15:40 Urine Cocaine Screen NEGATIVE 09/04/19 15:40 U Marijuana (THC) Screen NEGATIVE 09/04/19 15:40 Serum Alcohol < 10 mg/dL (NONE DETECTED) 09/04/19 14:20 09/04/19 14:20 Troponin I 0.054 Impressions: Chest X-Ray 09/04/19 13:39 IMPRESSION: Stable chronic interstitial changes without definite superimposed cardiopulmonary process. Abdomen/Pelvis CT 09/04/19 17:09 IMPRESSION: New bilateral hydronephrosis - hydroureter, left greater than right. Surgical changes consistent with prostatectomy. Mild pelvic free fluid. Elise catheter decompresses the bladder.Small bilateral pleural effusions and basilar subsegmental atelectasis. Venous Doppler Study 09/07/19 00:00 IMPRESSION: Acute left lower extremity deep venous thrombosis occludes the superficial femoral vein and extends into the common femoral veins partially occlusive. Small amount of thrombus extends into the greater saphenous vein the saphenous femoral junction Lung Scan-VQ NM 09/09/19 00:00 IMPRESSION: No gross perfusion defects. Grossly normal ventilation Chest X-Ray 09/11/19 00:00 IMPRESSION: STABLE CHRONIC SCARRING. NO ACUTE RADIOGRAPHIC FINDING IN THE CHEST. Stroke Is this a Stroke Patient?: No Acute Heart Failure - Is this a Heart Failure Patient?: No
[2019-09-13 16:15] VITALS: BP 121/63
[2019-09-13] MEDS: TAMSULOSIN HCL 0.4 MG CAP.SR.24H PO SCH (17:35)
== END 2019-09-13 20:15 | disposition hospice, home (50) | DRG 371 ==
LOC: ER 13:24 → INTOOBSV 16:53 → EH 16:53 → 5 09-05 00:03 → OBSVTOIN 09-05 12:53
PROVIDERS: ADMIT Internal Medicine; ATTEND Internal Medicine
DX: A04.72 Enterocolitis due to Clostridium difficile, not specified as recurrent (principal); G93.41 Metabolic encephalopathy; N17.9 Acute kidney failure, unspecified; I82.4Z2 Acute embolism and thrombosis of unspecified deep veins of left distal lower extremity; N13.30 Unspecified hydronephrosis; I10 Essential (primary) hypertension; K21.9 Gastro-esophageal reflux disease without esophagitis; M21.371 Foot drop, right foot; L89.629 Pressure ulcer of left heel, unspecified stage; L89.619 Pressure ulcer of right heel, unspecified stage; J43.9 Emphysema, unspecified; E83.42 Hypomagnesemia; I25.10 Atherosclerotic heart disease of native coronary artery without angina pectoris; R62.7 Adult failure to thrive; E86.0 Dehydration; I25.2 Old myocardial infarction; Z86.718 Personal history of other venous thrombosis and embolism; Z79.899 Other long term (current) drug therapy; Z66 Do not resuscitate; Z85.46 Personal history of malignant neoplasm of prostate; Z92.3 Personal history of irradiation; Z90.79 Acquired absence of other genital organ(s); Z95.5 Presence of coronary angioplasty implant and graft; Z95.0 Presence of cardiac pacemaker; Z85.21 Personal history of malignant neoplasm of larynx; Z87.891 Personal history of nicotine dependence; Z74.01 Bed confinement status; Z79.01 Long term (current) use of anticoagulants
CPT/HCPCS: 36415; 71045; 74176; 78582; 80048; 80053; 80307; 81001; 82272; 82397; 82550; 82962; 83605; 83735; 83970; 84132; 84484; 85025; 85610; 85730; 87040; 87045; 87086; 87205; 87324; 87449; 89055; 93005; 93010; 93971; 96361; 96365; 96375; 99285; A9540; A9567; G0378; J0696; J1644; J2405; J3370; J3475; J3480; J3490; J7030; Q9969